=== PATIENT | female | born 1935 | race Caucasian/White ===

== ENCOUNTER 2017-10-13 05:20 | Emergency (ER) | payer OTHER ==
--- OUTSIDE RECORDS SUMMARY | 2017-10-13 05:21 | XMS REPORT | Clinical Summary ---
:1935 Author Organization [facility] Address [address] [place] [address] Care Team Providers Name Role Phone None, Given Primary Care Provider Unavailable Allergies Active Allergy Reactions Severity Noted Date Comments Sulfa (Sulfonamide Antibiotics) 10/29/2015 Current Medications Prescription Sig. Disp. Refills Start Date End Date Status clopidogrel (PLAVIX) 75 Take 75 mg by mouth 3 08/24/2015 Active mg tablet once daily. RESTASIS 0.05 % PUT 1 DROP INTO BOTH 3 08/31/2015 Active ophthalmic emulsion EYES TWICE A DAY diltiazem CD (CardIZEM 09/28/2015 Active CD) 180 MG 24 hr capsule clonIDINE (CATAPRES) 0.1 1 TAB EVERY 6 HOURS 0 04/14/2016 Active MG tablet NEEDED FOR SYSTOLIC >175OR [place] >90 isosorbide mononitrate Take 30 mg by mouth 3 05/04/2016 Active (IMDUR) 30 MG 24 hr once daily. tablet potassium chloride Take 20 mEq by mouth 3 05/19/2016 Active (K-DUR) 20 MEQ CR tablet once daily. pravastatin (PRAVACHOL) Take 20 mg by mouth 3 05/19/2016 Active 20 MG tablet nightly. Active Problems Not on file Social History Tobacco Use Types Packs/Day Years Used Date Never Assessed Sex Assigned at Date Recorded Not on file Last Filed Vital Signs Not on file Plan of Treatment Health Maintenance Due Date Last Done Comments SHINGRIX VACCINE (#1) 1984 ZOSTER VACCINE 1994 PNEUMOCOCCAL POLYSACCHARIDE VACCINE AGE 65 AND OVER 1999 PNEUMOCOCCAL-13 1999 INFLUENZA VACCINE 11/29/2017 Results Not on fileafter 10/12/2016 Insurance Payer Benefit Plan / Group Subscriber ID Type Phone Address MEDICARE MEDICARE PART A AND B xxxxxxxxxx Medicare [place], [place] AETNA AETNA HMO,POS,EPO, MC/EC xxxxxxxxx HMO y [phone] [place] [address]
--- NOTE | 2017-10-13 07:38 | EDPHYS ---
Physician Documentation [facility] Name: Leeann Cueva Age: 82 yrs Sex: Female : 1935 Arrival Date: 10/13/2017 Time: 05:21 Bed 19 Private MD: Kavon Melton ED Physician Guero Castro HPI: 10/13 06:17 This 82 yrs old Female presents to ER via Ambulatory with complaints of inez Foreign Body In Ear. 06:17 The patient presents with a foreign body sensation, pain. The complaints affect the inez left ear. Onset: The symptoms/episode began/occurred just prior to arrival. Modifying factors: The symptoms are alleviated by nothing, the symptoms are aggravated by pulling on ears, touching. Associated signs and symptoms: The patient has no apparent associated signs or symptoms. Severity of symptoms: At their worst the symptoms were moderate in the emergency department the symptoms have improved mildly. The patient has not experienced similar symptoms in the past. Historical: - Allergies: 05:45 Sulfa (Sulfonamide Antibiotics); ea - Home Meds: 05:45 diltiazem HCl 180 mg Oral cpER 1 cap once daily [Active]; CoQ-10 100 mg oral cap daily ea [Active]; clopidogrel 75 mg oral tab 1 tab once daily [Active]; torsemide 20 mg oral tab 1 tab once daily [Active]; potassium chloride 10 mEq Oral TbER 1 tab once daily [Active]; losartan 50 mg oral tab 1 tab once daily [Active]; pravastatin 20 mg oral tab 1 tab once daily [Active]; aspirin 81 mg Oral TbEC 1 tab once daily [Active]; Restasis 0.05 % ophthalmic dpet 1 drop 2 times per day [Active]; Nitrostat 0.4 mg SL subl 1 tab [Active]; - PMHx: 05:45 endometrium cancer; angle closure glaucoma; melanoma; ea - PSHx: 05:45 Tonsillectomy; surgery on left leg; surgery on left knee; heart stent placement; ea - Immunization history:: Adult Immunizations up to date. - Social history:: Smoking status: Patient/guardian denies using tobacco. - Ebola Screening: : Patient negative for fever greater than or equal to 101.5 degrees Fahrenheit, and additional compatible Ebola Virus Disease symptoms. ROS: 06:18 Constitutional: Negative for fever, chills, and weight loss, Eyes: Negative for injury, inez pain, redness, and discharge, Neck: Negative for injury, pain, and swelling, Cardiovascular: Negative for chest pain, palpitations, and edema, Respiratory: Negative for shortness of breath, cough, wheezing, and pleuritic chest pain, Abdomen/GI: Negative for abdominal pain, nausea, vomiting, diarrhea, and constipation, Back: Negative for injury and pain, : Negative for injury, bleeding, discharge, and swelling, MS/Extremity: Negative for injury and deformity, Skin: Negative for injury, rash, and discoloration, Neuro: Negative for headache, weakness, numbness, tingling, and seizure, Psych: Negative for depression, anxiety, suicide ideation, homicidal ideation, and hallucinations, Allergy/Immunology: Negative for hives, rash, and allergies, Endocrine: Negative for neck swelling, polydipsia, polyuria, polyphagia, and marked weight changes, Hematologic/Lymphatic: Negative for swollen nodes, abnormal bleeding, and unusual bruising. 06:18 ENT: Positive for of the left ear. Exam: 06:18 Constitutional: This is a well developed, well nourished patient who is awake, alert, inez and in no acute distress. Head/Face: Normocephalic, atraumatic. Eyes: Pupils equal round and reactive to light, extra-ocular motions intact. Lids and lashes normal. Conjunctiva and sclera are non-icteric and not injected. Cornea within normal limits. Periorbital areas with no swelling, redness, or edema. Neck: Trachea midline, no thyromegaly or masses palpated, and no cervical lymphadenopathy. Supple, full range of motion without nuchal rigidity, or vertebral point tenderness. No Meningismus. Chest/axilla: Normal chest wall appearance and motion. Nontender with no deformity. No lesions are appreciated. Cardiovascular: Regular rate and rhythm with a normal S1 and S2. No gallops, murmurs, or rubs. Normal PMI, no JVD. No pulse deficits. Respiratory: Lungs have equal breath sounds bilaterally, clear to auscultation and percussion. No rales, rhonchi or wheezes noted. No increased work of breathing, no retractions or nasal flaring. Abdomen/GI: Soft, non-tender, with normal bowel sounds. No distension or tympany. No guarding or rebound. No evidence of tenderness throughout. Back: No spinal tenderness. No costovertebral tenderness. Full range of motion. Female : Normal external genitalia. Skin: Warm, dry with normal turgor. Normal color with no rashes, no lesions, and no evidence of cellulitis. MS/ Extremity: Pulses equal, no cyanosis. Neurovascular intact. Full, normal range of motion. Neuro: Awake and alert, GCS 15, oriented to person, place, time, and situation. Cranial nerves II-XII grossly intact. Motor strength 5/5 in all extremities. Sensory grossly intact. Cerebellar exam normal. Normal gait. Psych: Awake, alert, with orientation to person, place and time. Behavior, mood, and affect are within normal limits. 06:18 ENT: Ear canal(s): cerumen impaction, erythema, that is minimal, of the left canal, TM's: erythema. Vital Signs: 05:33 BP 160 / 71; Pulse 51; Resp 16 S; Temp 97.8(TE); Pulse Ox 98% on R/A; Weight 52.16 kg jd3 (R); Height 5 ft. 4 in. (162.56 cm) (R); Pain 0/10; 06:30 BP 165 / 71; Pulse 50; Resp 18; Pulse Ox 98% on R/A; ea 07:25 BP 163 / 75; Pulse 60; Resp 18; Pulse Ox 100% on R/A; ea 05:33 Body Mass Index 19.74 (52.16 kg, 162.56 cm) jd3 MDM: 05:50 Patient medically screened. [facility] 07:34 Data reviewed: vital signs, nurses notes. inez Administered Medications: 08:00 Drug: Augmentin 875 mg Route: PO; em 08:16 Follow up: Response: No adverse reaction em 08:00 Drug: [place] 5 mg-325 mg 1 tabs Route: PO; em 08:16 Follow up: Response: No adverse reaction em Disposition: 10/13/17 07:37 Discharged to Home. Impression: Impacted cerumen, left ear, Otitis externa, Otitis media, unspecified, left ear - hemorrhagic. - Condition is Stable. - Discharge Instructions: Cerumen Impaction, Ear Drops, Adult, Otitis Media, Adult, Otitis Media, Child, Otitis Externa, [id number], Otitis Media, Adult, [id number]. - Prescriptions for Augmentin 875- 125 mg Oral Tablet - take 1 tablet by ORAL route every 12 hours for 7 days; 14 tablet. Cortisporin- TC 3.3-3-10-0.5 mg/mL Otic Suspension - instill 4 drop by OTIC route every 6 hours; 1 bottle. Tylenol- Codeine #3 300-30 mg Oral Tablet - take 2 tablets by ORAL route every 6 hours As needed; 24 tablet. - Medication Reconciliation Form, Thank You Letter, Antibiotic Education, Prescription Opioid Use form. - Follow up: Kavon Melton; When: 2 - 3 days; Reason: Recheck today's complaints, Continuance of care, Re-evaluation by your physician. Follow up: Dahiana Vargas; When: Today; Reason: Recheck today's complaints, Continuance of care, Re-evaluation by your physician. - Problem is new. - Symptoms have improved. Signatures: Guero Castro MD MD cha Munoz, Edgar, RESIN REMOVER RESIN REMOVER em Steph Dominguez RN RN ea Davies, Jonathon, RN RN jd3 Corrections: (The following items were deleted from the chart) 08:20 07:37 10/13/2017 07:37 Discharged to Home. Impression: Impacted cerumen, left ear; em Otitis externa; Otitis media, unspecified, left ear - hemorrhagic. Condition is Stable. Discharge Instructions: Cerumen Impaction, Ear Drops, Adult, Otitis Media, Adult, Otitis Media, Child, Otitis Externa, [id number], Otitis Media, Adult, [id number]. Prescriptions for Augmentin 875-125 mg Oral Tablet - take 1 tablet by ORAL route every 12 hours for 7 days; 14 tablet, Cortisporin-TC 3.3-3-10-0.5 mg/mL Otic Suspension - instill 4 drop by OTIC route every 6 hours; 1 bottle, Tylenol-Codeine #3 300-30 mg Oral Tablet - take 2 tablets by ORAL route every 6 hours As needed; 24 tablet. and Forms are Medication Reconciliation Form, Thank You Letter, Antibiotic Education, Prescription Opioid Use. Follow up: Kavon Melton; When: 2 - 3 days; Reason: Recheck today's complaints, Continuance of care, Re-evaluation by your physician. Follow up: Dahiana Vargas; When: Today; Reason: Recheck today's complaints, Continuance of care, Re-evaluation by your physician. Problem is new. Symptoms have improved. inez
--- NOTE | 2017-10-13 07:38 | ER ---
Nurse's Notes [facility] Name: Leeann Cueva Age: 82 yrs Sex: Female : 1935 Arrival Date: 10/13/2017 Time: 05:21 Bed 19 Private MD: Kavon Melton Diagnosis: Impacted cerumen, left ear;Otitis externa;Otitis media, unspecified, left ear-hemorrhagic Presentation: 10/13 05:31 Presenting complaint: Patient states: "I woke up and I think something has crawled into jd3 my right ear. it would hurt with the worst pain ever then stop, then hurt and stop. I tried putting in some ear drops I have, but still didn't help.". Transition of care: patient was not received from another setting of care. Onset of symptoms was October 13, 2017. Risk Assessment: Do you want to hurt yourself or someone else? Patient reports no desire to harm self or others. Initial Sepsis Screen: Does the patient meet any 2 criteria? No. Patient's initial sepsis screen is negative. Does the patient have a suspected source of infection? No. Patient's initial sepsis screen is negative. Care prior to arrival: None. 05:31 Method Of Arrival: Ambulatory jd3 05:31 Acuity: AALIYAH 5 jd3 Historical: - Allergies: 05:45 Sulfa (Sulfonamide Antibiotics); ea - Home Meds: 05:45 diltiazem HCl 180 mg Oral cpER 1 cap once daily [Active]; CoQ-10 100 mg oral cap daily ea [Active]; clopidogrel 75 mg oral tab 1 tab once daily [Active]; torsemide 20 mg oral tab 1 tab once daily [Active]; potassium chloride 10 mEq Oral TbER 1 tab once daily [Active]; losartan 50 mg oral tab 1 tab once daily [Active]; pravastatin 20 mg oral tab 1 tab once daily [Active]; aspirin 81 mg Oral TbEC 1 tab once daily [Active]; Restasis 0.05 % ophthalmic dpet 1 drop 2 times per day [Active]; Nitrostat 0.4 mg SL subl 1 tab [Active]; - PMHx: 05:45 endometrium cancer; angle closure glaucoma; melanoma; ea - PSHx: 05:45 Tonsillectomy; surgery on left leg; surgery on left knee; heart stent placement; ea - Immunization history:: Adult Immunizations up to date. - Social history:: Smoking status: Patient/guardian denies using tobacco. - Ebola Screening: : Patient negative for fever greater than or equal to 101.5 degrees Fahrenheit, and additional compatible Ebola Virus Disease symptoms. Screenin:35 Abuse screen: Denies threats or abuse. Nutritional screening: No deficits noted. jd3 Tuberculosis screening: No symptoms or risk factors identified. Fall Risk Ambulatory Aid- None/Bed Rest/Nurse Assist (0 pts). Gait- Normal/Bed Rest/Wheelchair (0 pts) Mental Status- Oriented to own ability (0 pts). Total Mcadams Fall Scale indicates No Risk (0-24 pts). Assessment: 05:29 General: Appears in no apparent distress. Behavior is cooperative, appropriate for age, jd3 anxious. Pain: Denies pain. Pain at worst was 10 out of 10 on a pain scale. Neuro: Level of Consciousness is awake, alert, obeys commands, Oriented to person, place, time, situation, Appropriate for age. Cardiovascular: Capillary refill < 3 seconds Patient's skin is warm and dry. Respiratory: Airway is patent Respiratory effort is even, unlabored, Respiratory pattern is regular, symmetrical. GI: No signs and/or symptoms were reported involving the gastrointestinal system. : No signs and/or symptoms were reported regarding the genitourinary system. EENT: Ear canal ear wax noted to ronak ears. Derm: Skin is intact, Skin is dry, Skin is normal, Skin temperature is warm. Musculoskeletal: Circulation, motion, and sensation intact. Range of motion: intact in all extremities. 06:30 Reassessment: Patient and/or family updated on plan of care and expected duration. Pain ea level reassessed. Patient is alert, oriented x 3, equal unlabored respirations, skin warm/dry/pink. 07:15 Reassessment: Patient appears in no apparent distress at this time. Patient and/or em family updated on plan of care and expected duration. Pain level reassessed. Patient is alert, oriented x 3, equal unlabored respirations, skin warm/dry/pink. Patient states symptoms have improved. 08:27 Reassessment: Left VM with patient stating that ED staff will call Dr. sahu's office ss to sent up an appointment to follow up today in office. Vital Signs: 05:33 BP 160 / 71; Pulse 51; Resp 16 S; Temp 97.8(TE); Pulse Ox 98% on R/A; Weight 52.16 kg jd3 (R); Height 5 ft. 4 in. (162.56 cm) (R); Pain 0/10; 06:30 BP 165 / 71; Pulse 50; Resp 18; Pulse Ox 98% on R/A; ea 07:25 BP 163 / 75; Pulse 60; Resp 18; Pulse Ox 100% on R/A; ea 05:33 Body Mass Index 19.74 (52.16 kg, 162.56 cm) jd3 ED Course: 05:21 Patient arrived in ED. am2 05:21 Kavon Melton MD is Private Physician. am2 05:29 Jim Cleveland, MARSHA is Primary Nurse. jd3 05:33 Triage completed. jd3 05:35 Arm band placed on. jd3 05:35 Patient has correct armband on for positive identification. Bed in low position. Call jd3 light in reach. Side rails up X 1. Adult w/ patient. 05:49 Guero Castro MD is Attending Physician. inez 06:40 Ear irrigation: Route left ear with Other 1/2 peroxide and H2O amount 250ml Patient ea tolerated well. 06:58 Raymond Young LVN is Primary Nurse. em 07:37 Kavon Melton MD is Referral Physician. inez 07:37 Dahiana Sahu MD is Referral Physician. inez 08:[address] Castro, minimal debris, tolerated well. Patient did not have IV em access during this emergency room visit. Administered Medications: 08:00 Drug: Augmentin 875 mg Route: PO; em 08:16 Follow up: Response: No adverse reaction em 08:00 Drug: [place] 5 mg-325 mg 1 tabs Route: PO; em 08:16 Follow up: Response: No adverse reaction em Outcome: 07:37 Discharge ordered by . inez 08:19 Discharged to home ambulatory. em 08:19 Condition: good 08:19 Discharge instructions given to patient, family, Instructed on discharge instructions, follow up and referral plans. medication usage, Demonstrated understanding of instructions, follow-up care, medications, Prescriptions given X 3. 08:20 Patient left the ED. em Signatures: Guero Castro MD MD cha Munoz, Edgar, EARLY CHILDHOOD ASSISTANT EARLY CHILDHOOD ASSISTANT Edith Elmore, RN RN ss Rosaline Vargas Elena, RN RN Jim Dowling RN RN jd3
[2017-10-13] MEDS ORDERED: HYDROCODONE/APAP 5/325 MG TAB ONE (07:59)
[2017-10-13] MEDS ORDERED: AMOX/K CLAV 875 MG TAB ONE (07:59)
== END 2017-10-13 08:20 | disposition home or self-care (01) ==
LOC: ER 05:20
DX: H61.22 Impacted cerumen, left ear (principal); H60.92 Unspecified otitis externa, left ear; H66.92 Otitis media, unspecified, left ear; H92.22 Otorrhagia, left ear; C54.1 Malignant neoplasm of endometrium; C43.9 Malignant melanoma of skin, unspecified; Z88.2 Allergy status to sulfonamides
CPT/HCPCS: 99283

== ENCOUNTER 2019-06-04 11:48 | Emergency (ER) | payer OTHER ==
--- NOTE | 2019-06-04 13:11 | RAD REPORT ---
EXAM DESCRIPTION: RAD - Chest Pa And Lat (2 Views) - 06/04/2019 1:02 pm CLINICAL HISTORY: RIB PAIN - LEFT Chest pain. 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 The heart is upper limit normal in size with a tortuous thoracic aor ta. Diffuse osteopenia is seen with no displaced rib fracture evident.
[2019-06-04 13:29] LABS: Absolute Lymphocytes (CBC) 1.9 K/uL (0.7-4.9); Basophils % 0.9 % (0-1.3); Hematocrit 36.9 % (36.0-45.0); Lymphocytes % 31.5 % (15.3-44.8); MPV 8.4 fL (7.6-11.3); RBC Red Blood Cell Count 3.99 M/uL (3.86-4.86)
[2019-06-04 13:49] LABS: ALT/SGPT 13 U/L (12-78); AST/SGOT 18 U/L (15-37); Alkaline Phosphatase 92 U/L (45-117); BUN Blood Urea Nitrogen 18 mg/dL (7-18); Bicarbonate 28 mmol/L (21-32); Bilirubin Direct 0.2 mg/dL (0-0.2); Bilirubin Total 0.5 mg/dL (0.2-1.0); Glucose Level 86 mg/dL (74-106); Lipase 105 U/L (73-393); Potassium 4.3 mmol/L (3.5-5.1); Protein, Total 6.6 g/dL (6.4-8.2); Sodium Level 143 mmol/L (136-145); Troponin I < 0.02 ng/mL (0.0-0.045)
[2019-06-04] MEDS ORDERED: TRAMADOL HCL 50 MG TAB ONE (14:08)
[2019-06-04 14:59] LABS: Urine Bacteria <20 /HPF (<20); Urine Culture Reflex Order NOT NEEDED; Urine RBC <5 /HPF (NONE SEEN)
--- NOTE | 2019-06-04 15:08 | EDPHYS ---
Physician Documentation [facility] Name: Leeann Cueva Age: 84 yrs Sex: Female : 1935 Arrival Date: 06/04/2019 Time: 11:50 Bed 23 Private MD: Kavon Melton ED Physician Tadeo Wiley HPI: 06/04 12:55 This 84 yrs old Female presents to ER via Ambulatory with complaints of Rib cp Pain. 12:55 Onset: The symptoms/episode began/occurred yesterday, pain returned today. cp 12:55 Associated signs and symptoms: Pertinent negatives: abdominal pain, congestion, cough, cp fever, vomiting. Modifying factors: the patient symptoms are aggravated by palpation. Patient reports a fall 1 week ago. No immediate pain to rib area after fall. Historical: - Allergies: 12:04 Sulfa (Sulfonamide Antibiotics); ca1 - PMHx: 12:04 angle closure glaucoma; endometrium cancer; melanoma; Hypertension; CAD; ca1 - PSHx: 12:04 Tonsillectomy; surgery on left leg; surgery on left knee; heart stent placement; ca1 12:07 Cholecystectomy; pericardial Window; ca1 - Immunization history:: Adult Immunizations up to date, Pneumococcal vaccine is up to date, Flu vaccine is up to date. - Coronavirus screen:: The patient has NOT traveled to [place], [place], or [place] in the past 14 days. The patient has NOT had contact with known/suspected case of Coronavirus?. - Social history:: Smoking status: Patient denies any tobacco usage or history of. - Ebola Screening: : Patient negative for fever greater than or equal to 101.5 degrees Fahrenheit, and additional compatible Ebola Virus Disease symptoms Patient denies exposure to infectious person Patient denies travel to an Ebola-affected area in the 21 days before illness onset No symptoms or risks identified at this time. ROS: 13:05 Constitutional: Negative for body aches, chills, fever, poor PO intake. cp 13:05 Eyes: Negative for injury, pain, redness, and discharge. cp 13:05 ENT: Negative for drainage from ear(s), ear pain, sore throat, difficulty swallowing, difficulty handling secretions. 13:05 Neck: Negative for pain with movement, pain at rest, stiffness. 13:05 Cardiovascular: Positive for chest pain, of the left lower anterior and lateral rib area, Negative for edema, palpitations. 13:05 Respiratory: Negative for cough, shortness of breath, wheezing. 13:05 Abdomen/GI: Negative for abdominal pain, nausea, vomiting, and diarrhea, black/tarry stool, rectal bleeding. 13:05 Back: Negative for pain at rest, pain with movement. 13:05 Skin: Negative for rash. 13:05 Neuro: Negative for altered mental status, headache, weakness. 13:05 All other systems are negative. Exam: 13:30 Constitutional: The patient appears in no acute distress, alert, awake, cp non-diaphoretic, non-toxic, well developed, frail. 13:30 Head/Face: Normocephalic, atraumatic. cp 13:30 Eyes: Periorbital structures: appear normal, Conjunctiva: normal, no exudate, no injection, Sclera: no appreciated abnormality, Lids and lashes: appear normal, bilaterally. 13:30 ENT: External ear(s): are unremarkable, Nose: is normal, Mouth: Lips: moist, Oral mucosa: pink and intact, moist, Posterior pharynx: is normal, airway is patent, no erythema, no exudate. 13:30 Neck: C-spine: vertebral tenderness, is not appreciated, crepitus, is not appreciated, ROM/movement: is normal, is supple, no nuchal rigidity. 13:30 Chest/axilla: Inspection: normal, Palpation: crepitus, is not appreciated, tenderness, that is moderate, of the left lower lateral and anterior rib area, that partially reproduces the patient's complaints. 13:30 Cardiovascular: Rate: bradycardic, Rhythm: regular, Edema: is not appreciated, JVD: is not appreciated. 13:30 Respiratory: the patient does not display signs of respiratory distress, Respirations: normal, no use of accessory muscles, no retractions, no splinting, no tachypnea, labored breathing, is not present, Breath sounds: are clear throughout, no decreased breath sounds, no stridor, no wheezing. 13:30 Abdomen/GI: Inspection: abdomen appears normal, Bowel sounds: active, all quadrants, Palpation: soft, in all quadrants, nontender, in all quadrants, voluntary guarding, is not appreciated, involuntary guarding, is not appreciated. 13:30 Back: pain, is absent, ROM is normal. 13:30 Skin: no rash present. 13:30 Neuro: Orientation: to person, place \T\ time. Mentation: is normal. 14:36 ECG was reviewed by the Attending Physician. cp Vital Signs: 12:04 BP 129 / 59; Pulse 55; Resp 17 S; Temp 97.5(O); Pulse Ox 100% on R/A; Weight 48.53 kg ca1 (R); Height 5 ft. 4 in. (162.56 cm); Pain 6/10; 13:00 BP 153 / 82; Pulse 55; Resp 16; Pulse Ox 100% on R/A; vc 14:30 BP 162 / 72; Pulse 51; Resp 16; Pulse Ox 100% on R/A; vc 15:04 BP 133 / 78; Pulse 76; Resp 16; Pulse Ox 100% on R/A; vc 12:04 Body Mass Index 18.37 (48.53 kg, 162.56 cm) ca1 MDM: 12:39 Patient medically screened. cp 13:30 Differential diagnosis: rib fracture, rib contusion, acute [place]. cp 15:06 Data reviewed: vital signs, nurses notes, lab test result(s), EKG, radiologic studies, cp plain films, and as a result, I will discharge patient. 15:06 Test interpretation: by ED physician or midlevel provider: ECG, plain radiologic cp studies. Counseling: I had a detailed discussion with the patient and/or guardian regarding: the historical points, exam findings, and any diagnostic results supporting the discharge/admit diagnosis, lab results, radiology results, the need for outpatient follow up, a family practitioner, to return to the emergency department if symptoms worsen or persist or if there are any questions or concerns that arise at home. Response to treatment: the patient's symptoms have markedly improved after treatment, and as a result, I will discharge patient. 06/04 12:51 Order name: Urine Microscopic Only; Complete Time: 15:03 cp 06/04 12:51 Order name: CBC with Diff; Complete Time: 13:55 cp 06/04 12:51 Order name: Troponin I; Complete Time: 13:55 cp 06/04 12:51 Order name: BMP; Complete Time: 13:55 cp 06/04 13:56 Interpretation: Normal except: CL 109; GFR 48. cp 06/04 12:51 Order name: LFT's; Complete Time: 13:55 cp 06/04 14:35 Interpretation: Normal except: ALB 3.0; GLOB 3.6; A/G 0.8. cp 06/04 12:51 Order name: Lipase; Complete Time: 13:55 cp 06/04 12:06 Order name: Chest Pa And Lat (2 Views) XRAY; Complete Time: 13:55 ca1 06/04 14:36 Interpretation: Report reviewed. cp 06/04 12:06 Order name: EKG - Nurse/Tech; Complete Time: 12:12 ca1 06/04 12:06 Order name: EKG; Complete Time: 12:06 ca1 06/04 12:51 Order name: Urine Dipstick-Ancillary (obtain specimen); Complete Time: 14:38 cp 06/04 15:05 Order name: Urine Dipstick--Ancillary (enter results) bd EC:36 Rate is 54 beats/min. Rhythm is regular. AL interval is normal. QRS interval is normal. cp QT interval is normal. Clinical impression: Sinus bradycardia. Interpreted by me. Reviewed by me. Administered Medications: 14:20 Drug: UltRAM 50 mg Route: PO; vc 14:38 Follow up: Response: No adverse reaction vc Disposition: 16:40 Co-signature as Attending Physician, Tadeo Wiley MD. rn Disposition: 06/04/19 15:07 Discharged to Home. Impression: Other chest pain - left lower lateral rib pain. - Condition is Stable. - Discharge Instructions: Rib Contusion, Chest Wall Pain. - Prescriptions for Ibuprofen 800 mg Oral Tablet - take 1 tablet by ORAL route every 8 hours As needed take with food; 30 tablet. Tramadol 50 mg Oral Tablet - take 1 tablet by ORAL route every 8 hours as needed; 12 tablet. - Medication Reconciliation Form, Thank You Letter, Antibiotic Education, Prescription Opioid Use form. - Follow up: Private Physician; When: 2 - 3 days; Reason: Recheck today's complaints. - Problem is new. - Symptoms have improved. Signatures: Dispatcher [employer] EDMS Tadeo Wiley MD MD rn Guero Luis PA PA cp Acob, Cheryl RN RN ca1 Carlita Richardson RN RN vc Corrections: (The following items were deleted from the chart) 15:26 15:07 06/04/2019 15:07 Discharged to Home. Impression: Other chest pain - left lower vc lateral rib pain. Condition is Stable. Forms are Medication Reconciliation Form, Thank You Letter, Antibiotic Education, Prescription Opioid Use. Follow up: Private Physician; When: 2 - 3 days; Reason: Recheck today's complaints. Problem is new. Symptoms have improved. cp
--- NOTE | 2019-06-04 15:08 | ER ---
Nurse's Notes [facility] Name: Leeann Cueva Age: 84 yrs Sex: Female : 1935 Arrival Date: 06/04/2019 Time: 11:50 Bed 23 Private MD: Kavon Melton Diagnosis: Other chest pain-left lower lateral rib pain Presentation: 06/04 11:59 Presenting complaint: Patient states: Yesterday morning I got pain on the L rib side. ca1 Took some Tylenol and got through the day. Today, it's hurting again. I did have a fall a week ago and landed on this side. I didn't have any pain at that time until yesterday. Denies fever, cough and congestion. Transition of care: patient was not received from another setting of care. Onset of symptoms was June 04, 2019. Risk Assessment: Do you want to hurt yourself or someone else? Patient reports no desire to harm self or others. Initial Sepsis Screen: Does the patient meet any 2 criteria? No. Patient's initial sepsis screen is negative. Does the patient have a suspected source of infection? No. Patient's initial sepsis screen is negative. Care prior to arrival: None. 11:59 Method Of Arrival: Ambulatory ca1 11:59 Acuity: AALIYAH 3 ca1 Historical: - Allergies: 12:04 Sulfa (Sulfonamide Antibiotics); ca1 - PMHx: 12:04 angle closure glaucoma; endometrium cancer; melanoma; Hypertension; CAD; ca1 - PSHx: 12:04 Tonsillectomy; surgery on left leg; surgery on left knee; heart stent placement; ca1 12:07 Cholecystectomy; pericardial Window; ca1 - Immunization history:: Adult Immunizations up to date, Pneumococcal vaccine is up to date, Flu vaccine is up to date. - Coronavirus screen:: The patient has NOT traveled to [place], [place], or [place] in the past 14 days. The patient has NOT had contact with known/suspected case of Coronavirus?. - Social history:: Smoking status: Patient denies any tobacco usage or history of. - Ebola Screening: : Patient negative for fever greater than or equal to 101.5 degrees Fahrenheit, and additional compatible Ebola Virus Disease symptoms Patient denies exposure to infectious person Patient denies travel to an Ebola-affected area in the 21 days before illness onset No symptoms or risks identified at this time. Screenin:30 Abuse screen: Denies threats or abuse. Nutritional screening: No deficits noted. vc Tuberculosis screening: No symptoms or risk factors identified. Fall Risk None identified. Assessment: 13:00 General: Appears in no apparent distress. uncomfortable, slender, well groomed, vc Behavior is calm, cooperative, appropriate for age. Pain: Complains of pain in left lower anterior and lateral rib cage. Neuro: Level of Consciousness is awake, alert, obeys commands, Oriented to person, place, time, Satellite Dish Repairer are. Cardiovascular: Capillary refill < 3 seconds Patient's skin is warm and dry. Respiratory: Airway is patent Respiratory effort is even, unlabored. GI: No signs and/or symptoms were reported involving the gastrointestinal system. : No signs and/or symptoms were reported regarding the genitourinary system. EENT: No deficits noted. Derm: Skin temperature is cool. Musculoskeletal: Range of motion: intact in all extremities. 14:00 Reassessment: Patient and/or family updated on plan of care and expected duration. Pain vc level reassessed. Patient is alert, oriented x 3, equal unlabored respirations, skin warm/dry/pink. Patients at bedside. 15:13 Reassessment: Patient and/or family updated on plan of care and expected duration. Pain vc level reassessed. Patient is alert, oriented x 3, equal unlabored respirations, skin warm/dry/pink. Patient states feeling better. Patient states symptoms have improved. Vital Signs: 12:04 BP 129 / 59; Pulse 55; Resp 17 S; Temp 97.5(O); Pulse Ox 100% on R/A; Weight 48.53 kg ca1 (R); Height 5 ft. 4 in. (162.56 cm); Pain 6/10; 13:00 BP 153 / 82; Pulse 55; Resp 16; Pulse Ox 100% on R/A; vc 14:30 BP 162 / 72; Pulse 51; Resp 16; Pulse Ox 100% on R/A; vc 15:04 BP 133 / 78; Pulse 76; Resp 16; Pulse Ox 100% on R/A; vc 12:04 Body Mass Index 18.37 (48.53 kg, 162.56 cm) ca1 ED Course: 11:50 Patient arrived in ED. as 11:50 Kavon Melton MD is Private Physician. as 12:02 Triage completed. ca1 12:04 Arm band placed on right wrist. ca1 12:36 Guero Luis PA is PHCP. cp 12:36 Tadeo Wiley MD is Attending Physician. cp 12:54 Carlita Richardson, RN is Primary Nurse. vc 12:58 EKG done, by ED staff, reviewed by Guero GIBBS. at1 13:02 Chest Pa And Lat (2 Views) XRAY In Process Unspecified. EDMS 13:05 Safety checks: Family/friend present: yes. Family/friends encouraged to stay with jp3 patient. 13:10 Missed attempt(s): 22 gauge in right antecubital area. Bleeding controlled, band aid jp3 applied, catheter tip intact. 13:15 Inserted saline lock: 22 gauge in left antecubital area, using aseptic technique. Blood jp3 collected. 13:15 Initial lab(s) drawn, by me, sent to lab. X-ray(s) taken. jp3 13:36 Placed in gown. Bed in low position. Call light in reach. Side rails up X 1. Side rails jp3 up X2. Warm blanket given. Verbal reassurance given. Pulse ox on. NIBP on. 15:09 Urine Dipstick--Ancillary (enter results) Sent. vc 15:14 No provider procedures requiring assistance completed. IV discontinued, intact, vc bleeding controlled, No redness/swelling at site. Pressure dressing applied. Administered Medications: 14:20 Drug: UltRAM 50 mg Route: PO; vc 14:38 Follow up: Response: No adverse reaction vc Outcome: 15:07 Discharge ordered by MD. cp 15:14 Condition: improved vc 15:17 Discharge instructions given to patient, significant other, Instructed on discharge vc instructions, follow up and referral plans. medication usage, Demonstrated understanding of instructions, follow-up care, medications, Prescriptions given X 2. 15:26 Discharged to home ambulatory, with significant other. vc 15:26 Patient left the ED. vc Signatures: Dispatcher [employer] Onelia Price Amanda, fuel storage technician EKG Tat1 Guero Luis PA PA cp Cheikh Fagan jp3 Ivonne Galicia RN RN ca1 Carlita Richardson RN RN vc
[2019-06-04 15:34] VITALS: TEMP 97.5; O2SAT 100
[2019-06-04 15:38] VITALS: BP 133/78
--- NOTE | 2019-06-04 16:13 | EKG ---
Test Date: 2019-06-04 Test Time: 12:10:36 Lead Systems Analyst: AZUL MEASUREMENT RESULTS: Intervals: Rate: 54 ID: [id number] QRSD: 80 QT: 378 QTc: 358 [place]: P: 68 ID: [id number] QRS: 76 T: 65 INTERPRETIVE STATEMENTS: Sinus bradycardia Otherwise normal ECG Compared to ECG 01/24/1997 11:57:00 Myocardial infarct finding no longer present Electronically Signed On 06-04-19 16:11:52 SALVAGE DIVER by Siddharth Phan
[2019-06-04 17:13] LABS: Urine Blood NEGATIVE (NEG); Urine Glucose NEGATIVE (NEG); Urine Protein NEGATIVE (NEG); Urine pH 5.5 (5.0-7.0)
== END 2019-06-04 15:26 | disposition home or self-care (01) ==
LOC: ER 11:48
DX: R07.81 Pleurodynia (principal); I10 Essential (primary) hypertension; Z95.9 Presence of cardiac and vascular implant and graft, unspecified; Z88.2 Allergy status to sulfonamides; Z85.89 Personal history of malignant neoplasm of other organs and systems
CPT/HCPCS: 36415; 71046; 80048; 80076; 81003; 81015; 83690; 84484; 85025; 93005; 99284

== ENCOUNTER 2020-10-25 22:20 | Emergency (ER) | payer OTHER ==
--- OUTSIDE RECORDS SUMMARY | 2020-10-25 22:34 | XMS REPORT | Continuity of Care Document ---
:1935 Author Organization [facility] t Address [address] [place] [address] Care Team Providers Name Role Phone CATRACHITO Primary Care Physician Unavailable CATRACHITO Attending Clinician Unavailable Payers Payer Name Policy Type Policy Effective Date Expiration Date Sour ce Number AETNA MEDICAREAETNA [id number] 2019 [place] MEDICARE HMO/PPO 00:00:00 Methodis t [id number] -PresentHMO AETNA MEDICARE PPO [id number] 2019 00:00:00 Problems This patient has no known problems. Allergies, Adverse Reactions, Alerts Allergy Allergy Status Severity Reaction(s) Onset Inactive Treating Comm ents Source Name Type Date Date Clinician Sulfa Propensi Active [place] (Sulfona ty to 6-30 Methodi mide adverse 00:00: st Antibiot reaction 00 ics) s to drug Social History Social Habit Start Date Stop Date Quantity Comments Source Sex Assigned At [birth year] [place] M ethodist 00:00:00 00:00:00 Medications Ordered Filled Start Stop Current Ordering Indication Dosage Frequency Signature Comments Components Source Medication Medication Date Date Medication? Clinician (SIG) Name Name potassium Yes 20meq QD Take 20 [place] chloride 1-19 mEq by Methodandra (K-DUR) 20 00:00: mouth once s t MEQ CR 00 daily. tablet pravastatin Yes 20mg QD Take 20 mg Rasheed (PRAVACHOL) 1-19 by mouth Meth allyssa 20 MG 00:00: nightly. st tablet 00 isosorbide Yes 30mg QD Take 30 mg [place] mononitrate 1-04 by mouth Meth allyssa (IMDUR) 30 00:00: once st MG 24 hr 00 daily. tablet clonIDINE 2015-05 Yes 1 TAB Wili (CATAPRES) 2-15 EVERY 6 Method i 0.1 MG 00:00: HOURS st tablet 00 NEEDED FOR SYSTOLIC >175OR [place]ENN >90 diltiazem Yes Wili CD 5-30 Methodi (CardIZEM 00:00: st CD) 180 MG 00 24 hr capsule RESTASIS Yes PUT 1 DROP Blanca ston 0.05 % 02 INTO BOTH Methodi ophthalmic 00:00: EYES TWICE s t emulsion 00 A DAY clopidogrel Yes 75mg QD Take 75 mg Wili (PLAVIX) 75 4-25 by mouth Meth allyssa mg tablet 00:00: once st 00 daily. Immunizations Ordered Immunization Filled Immunization Date Status Commen ts [facility] 2020-[facility]08 Com[facility] [place] [facility] 00:00:00 [facility] [place] COVID-19 MRNA 2020-05-18 Completed [place] VACCINATION 00:00:00 [facility] Procedures This patient has no known procedures. Plan of Care Planned Activity Planned Date Details Comments Source Future Scheduled 2020-11-29 INFLUENZA VACCINE [facility] 00:00:00 [code = INFLUENZA VACCINE] Future Scheduled 1999 65+ PNEUMOCOCCAL [place] [facility] Test 00:00:00 VACCINE (1 of 1 - PPSV23) [code = 65+ PNEUMOCOCCAL VACCINE (1 of 1 - PPSV23)] Future Scheduled 1984 SHINGLES VACCINES (#1) [facility] Test 00:00:00 [code = SHINGLES VACCINES (#1)] Encounters Start End Encounter Admission Attending Care Care Encounter Source Date/Time Date/Time Type Type Clinicians Facility Department ID 2020-06-08 2020-06-08 Outpatient [facility] [id number] [place] 00:00:00 00:00:[address] 2020-05-18 2020-05-18 Outpatient [facility] [id number] 650 [place] 00:00:00 00:00:[address] 2020-04-01 2020-04-01 Outpatient [facility] WINST[facility] [id number] 10:55:49 12:11:19 JENNIFER duarte 2020-02-05 2020-02-05 Outpatient DENNIS WINSTON [facility] [id number] 00:00:00 00:00:00 JENNIFER duarte 2019-10-23 2019-10-23 Outpatient DENNIS WINSTON [facility] [id number] 13:38:08 13:38:40 JENNIFER duarte Results This patient has no known results.
[2020-10-25] MEDS ORDERED: MORPHINE 2 MG/ML SYR ONE (23:25)
[2020-10-25] MEDS ORDERED: ONDANSETRON 4 MG/2 ML VIAL ONE (23:25)
[2020-10-26] MEDS ORDERED: MORPHINE 2 MG/ML SYR ONE (00:01)
--- NOTE | 2020-10-26 01:24 | EDPHYS ---
Physician Documentation [facility] Name: Leeann Cueva Age: 85 yrs Sex: Female : 1935 Arrival Date: 10/25/2020 Time: 22:21 Bed 7 Private MD: ED Physician Bright Burrows HPI: 10/25 23:19 This 85 yrs old Female presents to ER via EMS with complaints of Fall. mh7 23:19 Details of fall: The patient fell from an upright position, while walking. Onset: The 7 symptoms/episode began/occurred just prior to arrival, today. Associated injuries: The patient sustained left elbow and left shoulder and left arm, decreased range of motion, painful injury. Severity of symptoms: At their worst the symptoms were moderate, earlier today, in the emergency department the symptoms are unchanged, despite EMS interventions. Historical: - Allergies: 22:28 Sulfa (Sulfonamide Antibiotics); 8 - Home Meds: 22:28 aspirin 81 mg Oral TbEC 1 tab once daily [Active]; clopidogrel 75 mg Oral tab 1 tab jm8 once daily [Active]; CoQ-10 100 mg Oral cap daily [Active]; diltiazem HCl 180 mg Oral cpER 1 cap once daily [Active]; losartan 50 mg Oral tab 1 tab once daily [Active]; Nitrostat 0.4 mg SL subl 1 tab [Active]; potassium chloride 10 mEq Oral TbER 1 tab once daily [Active]; pravastatin 20 mg Oral tab 1 tab once daily [Active]; Restasis 0.05 % ophthalmic dpet 1 drop 2 times per day [Active]; torsemide 20 mg Oral tab 1 tab once daily [Active]; - PMHx: 22:28 angle closure glaucoma; CAD; endometrium cancer; Hypertension; melanoma; jm8 - PSHx: 22:28 None; jm8 - Immunization history:: Adult Immunizations up to date. - Social history:: Smoking status: Patient denies any tobacco usage or history of. ROS: 23:19 Constitutional: Negative for fever, chills, and weight loss, Eyes: Negative for injury, mh7 pain, redness, and discharge, ENT: Negative for injury, pain, and discharge, Neck: Negative for injury, pain, and swelling, Cardiovascular: Negative for chest pain, palpitations, and edema, Respiratory: Negative for shortness of breath, cough, wheezing, and pleuritic chest pain, Abdomen/GI: Negative for abdominal pain, nausea, vomiting, diarrhea, and constipation, Back: Negative for injury and pain, : Negative for injury, bleeding, discharge, and swelling, Skin: Negative for injury, rash, and discoloration, Neuro: Negative for headache, weakness, numbness, tingling, and seizure, Psych: Negative for depression, anxiety, suicide ideation, homicidal ideation, and hallucinations, Allergy/Immunology: Negative for hives, rash, and allergies, Endocrine: Negative for neck swelling, polydipsia, polyuria, polyphagia, and marked weight changes, Hematologic/Lymphatic: Negative for swollen nodes, abnormal bleeding, and unusual bruising. Exam: 23:19 Constitutional: This is a well developed, well nourished patient who is awake, alert, mh7 and in no acute distress. Head/Face: Normocephalic, atraumatic. Eyes: Pupils equal round and reactive to light, extra-ocular motions intact. Lids and lashes normal. Conjunctiva and sclera are non-icteric and not injected. Cornea within normal limits. Periorbital areas with no swelling, redness, or edema. Neck: Trachea midline, no thyromegaly or masses palpated, and no cervical lymphadenopathy. Supple, full range of motion without nuchal rigidity, or vertebral point tenderness. No Meningismus. Chest/axilla: Normal chest wall appearance and motion. Nontender with no deformity. No lesions are appreciated. Cardiovascular: Regular rate and rhythm with a normal S1 and S2. No gallops, murmurs, or rubs. Normal PMI, no JVD. No pulse deficits. Respiratory: Lungs have equal breath sounds bilaterally, clear to auscultation and percussion. No rales, rhonchi or wheezes noted. No increased work of breathing, no retractions or nasal flaring. Abdomen/GI: Soft, non-tender, with normal bowel sounds. No distension or tympany. No guarding or rebound. No evidence of tenderness throughout. Back: No spinal tenderness. No costovertebral tenderness. Full range of motion. Skin: Warm, dry with normal turgor. Normal color with no rashes, no lesions, and no evidence of cellulitis. 23:19 Neuro: Awake and alert, GCS 15, oriented to person, place, time, and situation. Cranial nerves II-XII grossly intact. Motor strength 5/5 in all extremities. Sensory grossly intact. Cerebellar exam normal. Normal gait. Psych: Awake, alert, with orientation to person, place and time. Behavior, mood, and affect are within normal limits. 23:19 Musculoskeletal/extremity: Extremities: noted in the left elbow and left shoulder and left arm: decreased ROM, pain, tenderness, ROM: limited active range of motion, in the left elbow and left shoulder and left arm, limited passive range of motion, in the left elbow and left shoulder and left arm, limited active range of motion due to pain, in the left elbow and left shoulder and left arm, limited passive range of motion due to pain, in the left elbow and left shoulder and left arm, Circulation is intact in all extremities. Sensation intact. Compartment Syndrome exam of affected extremity: is normal. no numbness, no tingling, no sensation deficit, no palor, no weak pulses, Joints: the left shoulder and left elbow displays limited range of motion, pain at rest, painful range of motion, tenderness. Vital Signs: 22:24 BP 184 / 75; Pulse 57; Resp 16; Temp 98.9; Pulse Ox 100% ; Weight 49.9 kg; Height 5 ft. [facility] 3 in. (160.02 cm); Pain 8/10; 23:20 BP 169 / 69; Pulse 45; Resp 16; Pulse Ox 97% on R/A; [facility] 10/26 00:24 BP 175 / 67; Pulse 51; Resp 16; Pulse Ox 99% on R/A; [facility] 01:07 BP 165 / 75; Pulse 57; Resp 16; Pulse Ox 96% on R/A; [facility] 10/25 22:24 Body Mass Index 19.49 (49.90 kg, 160.02 cm) [facility] MDM: 01:22 Differential diagnosis: abrasion, contusion, fracture. Data reviewed: vital signs, [facility] nurses notes, radiologic studies, plain films. Counseling: I had a detailed discussion with the patient and/or guardian regarding: the historical points, exam findings, and any diagnostic results supporting the discharge/admit diagnosis, the presence of at least one elevated blood pressure reading (>120/80) during this emergency department visit, radiology results, the need for outpatient follow up, a orthopedic surgeon, to return to the emergency department if symptoms worsen or persist or if there are any questions or concerns that arise at home. Response to treatment: the patient's symptoms have markedly improved after treatment. 01:24 Patient medically screened. [facility] 10/25 22:53 Order name: Shoulder Left (2 View) XRAY [facility] 10/25 22:53 Order name: Humerus Left XRAY [facility] 10/25 22:53 Order name: Elbow Left 3 View XRAY [facility] 10/25 22:53 Order name: Forearm Left XRAY [facility] 10/25 23:02 Order name: IV Start; Complete Time: 23:11 [facility] 10/26 01:16 Order name: Shoulder Immobilizer; Complete Time: 01:23 [facility] Administered Medications: 10/25 23:11 Drug: morphine 2 mg Route: IVP; Site: right forearm; [facility] 23:11 Drug: Zofran (Ondansetron) 4 mg Route: IVP; Site: right forearm; [facility] 10/26 02:13 Follow up: Response: No adverse reaction [facility] 10/25 23:41 Drug: morphine 2 mg Route: IVP; Site: right forearm; [facility] 10/26 02:13 Follow up: Response: No adverse reaction [facility] 02:13 Drug: [place] (HYDROcodone-acetaminophen) 5 mg-325 mg 1 tabs Route: PO; [facility] 02:13 Follow up: Response: No adverse reaction; Medication administered at discharge. [facility] Disposition: 10/26/20 01:24 Discharged to Home. Impression: Proximal humerus Fracture, Left. - Condition is Stable. - Discharge Instructions: Humerus Fracture Treated With Immobilization, [id number]. - Prescriptions for Tylenol- Codeine #3 300-30 mg Oral Tablet - take 1 tablet by ORAL route every 4-6 hours As needed; 20 tablet. - Medication Reconciliation Form, Thank You Letter, Antibiotic Education, Prescription Opioid Use form. - Follow up: Private Physician; When: 1 - 2 days; Reason: Worsening of condition, Recheck today's complaints, Continuance of care, Re-evaluation by your physician. Follow up: Johnnie Medina MD; When: 1 - 2 days; Reason: Worsening of condition, Recheck today's complaints. Follow up: Dong Vyas MD; When: 1 - 2 days; Reason: Worsening of condition, Recheck today's complaints. - Problem is new. - Symptoms have improved. Signatures: Dispatcher [employer] EDBright Manzo MD MD mh7 Sami Shaver RN RN jm8 Corrections: (The following items were deleted from the chart) 02:14 01:24 10/26/2020 01:24 Discharged to Home. Impression: Proximal humerus Fracture, Left. jm8 Condition is Stable. Forms are Medication Reconciliation Form, Thank You Letter, Antibiotic Education, Prescription Opioid Use. Follow up: Private Physician; When: 1 - 2 days; Reason: Worsening of condition, Recheck today's complaints, Continuance of care, Re-evaluation by your physician. Follow up: Johnnie Medina; When: 1 - 2 days; Reason: Worsening of condition, Recheck today's complaints. Follow up: Dong Vyas; When: 1 - 2 days; Reason: Worsening of condition, Recheck today's complaints. Problem is new. Symptoms have improved. mh7
--- NOTE | 2020-10-26 01:24 | ER ---
Nurse's Notes [facility] Name: Leeann Cueva Age: 85 yrs Sex: Female : 1935 Arrival Date: 10/25/2020 Time: 22:21 Bed 7 Private MD: Diagnosis: Proximal humerus Fracture, Left Presentation: 10/25 22:24 Chief complaint: EMS states: patient fell at home 30 minutes prior to arrival. Patient jm8 hit left shoulder and left elbow. Denies LOC or hitting head. Coronavirus screen: Client denies travel out of the [place] in the last 14 days. At this time, the client does not indicate any symptoms associated with coronavirus-19. Ebola Screen: Patient negative for fever greater than or equal to 101.5 degrees Fahrenheit, and additional compatible Ebola Virus Disease symptoms Patient denies exposure to infectious person. Patient denies travel to an Ebola-affected area in the 21 days before illness onset. Initial Sepsis Screen: Does the patient meet any 2 criteria? No. Patient's initial sepsis screen is negative. Does the patient have a suspected source of infection? No. Patient's initial sepsis screen is negative. Risk Assessment: Do you want to hurt yourself or someone else? Patient reports no desire to harm self or others. Onset of symptoms was October 25, 2020 at 21:45. 22:24 Method Of Arrival: EMS: [facility] 22:24 Acuity: AALIYAH 3 jm8 Triage Assessment: 22:28 General: Appears in no apparent distress. comfortable, Behavior is calm, cooperative, jm8 appropriate for age. Pain: Complains of pain in left arm Pain currently is 8 out of 10 on a pain scale. Quality of pain is described as shooting, throbbing, Noted to be grimacing, guarding. EENT: No deficits noted. No signs and/or symptoms were reported regarding the EENT system. Neuro: No deficits noted. Level of Consciousness is awake, alert, obeys commands, Oriented to person, place, time. Cardiovascular: No deficits noted. Respiratory: No deficits noted. Airway is patent Trachea midline Respiratory effort is even, unlabored, Respiratory pattern is regular, symmetrical. GI: No deficits noted. No signs and/or symptoms were reported involving the gastrointestinal system. : No deficits noted. No signs and/or symptoms were reported regarding the genitourinary system. Derm: No deficits noted. No signs and/or symptoms reported regarding the dermatologic system. Musculoskeletal: Capillary refill < 3 seconds, Range of motion: limited in left shoulder, left elbow and left wrist Reports pain in left arm after fall 30 minutes prior to arrival. Historical: - Allergies: 22:28 Sulfa (Sulfonamide Antibiotics); jm8 - Home Meds: 22:28 aspirin 81 mg Oral TbEC 1 tab once daily [Active]; clopidogrel 75 mg Oral tab 1 tab jm8 once daily [Active]; CoQ-10 100 mg Oral cap daily [Active]; diltiazem HCl 180 mg Oral cpER 1 cap once daily [Active]; losartan 50 mg Oral tab 1 tab once daily [Active]; Nitrostat 0.4 mg SL subl 1 tab [Active]; potassium chloride 10 mEq Oral TbER 1 tab once daily [Active]; pravastatin 20 mg Oral tab 1 tab once daily [Active]; Restasis 0.05 % ophthalmic dpet 1 drop 2 times per day [Active]; torsemide 20 mg Oral tab 1 tab once daily [Active]; - PMHx: 22:28 angle closure glaucoma; CAD; endometrium cancer; Hypertension; melanoma; jm8 - PSHx: 22:28 None; jm8 - Immunization history:: Adult Immunizations up to date. - Social history:: Smoking status: Patient denies any tobacco usage or history of. Screenin:28 Abuse screen: Denies threats or abuse. Denies injuries from another. Nutritional [facility] screening: No deficits noted. Tuberculosis screening: No symptoms or risk factors identified. Fall Risk Fall in past 12 months (25 points). Vital Signs: 22:24 BP 184 / 75; Pulse 57; Resp 16; Temp 98.9; Pulse Ox 100% ; Weight 49.9 kg; Height 5 ft. jm8 3 in. (160.02 cm); Pain 8/10; 23:20 BP 169 / 69; Pulse 45; Resp 16; Pulse Ox 97% on R/A; jm8 10/26 00:24 BP 175 / 67; Pulse 51; Resp 16; Pulse Ox 99% on R/A; jm8 01:07 BP 165 / 75; Pulse 57; Resp 16; Pulse Ox 96% on R/A; jm8 10/25 22:24 Body Mass Index 19.49 (49.90 kg, 160.02 cm) 8 ED Course: 10/25 22:21 Patient arrived in ED. mw2 22:26 Triage completed. 8 22:28 Arm band placed on right wrist. jm8 22:30 Patient has correct armband on for positive identification. Bed in low position. Call [facility] light in reach. Side rails up X2. Adult w/ patient. 22:36 Bright Burrows MD is Attending Physician. [facility] 23:30 Inserted saline lock: in right forearm, using aseptic technique. 8 10/26 00:25 Shoulder Left (2 View) XRAY In Process Unspecified. EDMS 00:45 Humerus Left XRAY In Process Unspecified. EDMS 00:48 Forearm Left XRAY In Process Unspecified. EDMS 00:51 Elbow Left 3 View XRAY In Process Unspecified. EDMS 01:23 Johnnie Medina MD is Referral Physician. [facility] 01:23 Dong Vyas MD is Referral Physician. [facility] 02:12 No provider procedures requiring assistance completed. IV discontinued, intact. 8 Administered Medications: 10/25 23:11 Drug: morphine 2 mg Route: IVP; Site: right forearm; [facility] 23:11 Drug: Zofran (Ondansetron) 4 mg Route: IVP; Site: right forearm; [facility] 10/26 02:13 Follow up: Response: No adverse reaction [facility] 10/25 23:41 Drug: morphine 2 mg Route: IVP; Site: right forearm; 8 10/26 02:13 Follow up: Response: No adverse reaction [facility] 02:13 Drug: [place] (HYDROcodone-acetaminophen) 5 mg-325 mg 1 tabs Route: PO; [facility] 02:13 Follow up: Response: No adverse reaction; Medication administered at discharge. jm8 Outcome: 01:24 Discharge ordered by . [facility] 02:12 Discharged to home via wheelchair, with family. [facility] 02:12 Condition: good 02:12 Discharge instructions given to patient, family, Instructed on discharge instructions, follow up and referral plans. medication usage, Demonstrated understanding of instructions, follow-up care, medications, Prescriptions given X 1. 02:14 Patient left the ED. 8 Signatures: Dispatcher [employer] EDMO Jerry Clay mw2 Bright Burrows MD MD [facility] Sami Shaver RN RN jm8 Corrections: (The following items were deleted from the chart) 10/25 22:31 22:28 Fall Risk None identified. bev pablo
[2020-10-26] MEDS ORDERED: HYDROCODONE/APAP 5/325 MG TAB ONE (02:02)
[2020-10-26 02:28] VITALS: TEMP 98.9
[2020-10-26 02:33] VITALS: BP 165/75; O2SAT 96
--- NOTE | 2020-10-26 13:14 | RAD REPORT ---
EXAM DESCRIPTION: Shoulder Left 2 View CLINICAL HISTORY: Trauma COMPARISON: None. FINDINGS: 2 views of the left shoulder. No glenohumeral dislocation. Acute minimally displaced fract ure of the proximal left humerus. Degenerative spurring of the acromioclavicular joint. Osteopenia. N o acute abnormalities of visualized left ribs. Atherosclerotic calcification of the thoracic aorta. IMPRESSION: 1. Acute minimally displaced fracture of the proximal left humerus. Electronically signed by: Percy Meyer 10/26/2020 12:48 AM CDT Due to temporary technical issues with the PACS/Fluency reporting system, reports are being signed by the in house radiologist without review as a courtesy to ensure prompt reporting. The interpreting r adiologist is fully responsible for the content of the report.
--- NOTE | 2020-10-26 13:16 | RAD REPORT ---
EXAM DESCRIPTION: Humerus Left CLINICAL HISTORY: Trauma COMPARISON: None. FINDINGS: 2 views of the left humerus. . Acute minimally displaced fracture of the proximal left hum erus. Degenerative spurring of the acromioclavicular joint. Osteopenia. No acute abnormalities of vis ualized left ribs. IMPRESSION: 1. Acute minimally displaced fracture of the proximal left humerus. Due to temporary technical issues with the PACS/Fluency reporting system, reports are being signed by the in house radiologist without review as a courtesy to ensure prompt reporting. The interpreting r adiologist is fully responsible for the content of the report.
--- NOTE | 2020-10-26 13:16 | RAD REPORT ---
EXAM DESCRIPTION: Radiographic Examination COMPARISON: None. CLINICAL HISTORY: Trauma FINDINGS: 2 views of the left forearm and three views of the left elbow demonstrate no acute fractur e or dislocation. 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 Soft tissues are unremarkable. IMPRESSION: No acute findings of the left forearm and left elbow. Electronically signed by: Vincent Hodge MD 10/26/2020 12:57 AM CDT Due to temporary technical issues with the PACS/Fluency reporting system, reports are being signed by the in house radiologist without review as a courtesy to ensure prompt reporting. The interpreting r adiologist is fully responsible for the content of the report.
--- NOTE | 2020-10-26 13:19 | RAD REPORT ---
EXAM DESCRIPTION: Radiographic Examination COMPARISON: None. CLINICAL HISTORY: Trauma FINDINGS: 2 views of the left forearm and three views of the left elbow demonstrate no acute fractur e or dislocation. 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 Soft tissues are unremarkable. IMPRESSION: No acute findings of the left forearm and left elbow. Electronically signed by: Vincent Hodge MD 10/26/2020 12:57 AM CDT Due to temporary technical issues with the PACS/Fluency reporting system, reports are being signed by the in house radiologist without review as a courtesy to ensure prompt reporting. The interpreting r adiologist is fully responsible for the content of the report.
== END 2020-10-26 02:14 | disposition home or self-care (01) ==
LOC: ER 22:20
DX: S42.202A Unspecified fracture of upper end of left humerus, initial encounter for closed fracture (principal); W19.XXXA Unspecified fall, initial encounter; Y93.01 Activity, walking, marching and hiking; Z79.82 Long term (current) use of aspirin; Z88.2 Allergy status to sulfonamides; I10 Essential (primary) hypertension; I25.10 Atherosclerotic heart disease of native coronary artery without angina pectoris
CPT/HCPCS: 73080; 73090; 73060; 73030; J2270; J2405; 96374; 96375; 99284

== ENCOUNTER 2021-08-16 23:17 | Inpatient (IN) | payer OTHER ==
--- OUTSIDE RECORDS SUMMARY | 2021-08-16 23:26 | XMS REPORT | Continuity of Care Document ---
:1935 Author Organization [facility] t Address [address] [place] [address] Care Team Providers Name Role Phone [phone] Primary Care Physician Unavailable CATRACHITO Attending Clinician Unavailable Payers Payer Name Policy Type Policy Number Effective Date Expiration Date S mehran [employer] MED[employer] PPO [id number] 2019 00:00:00 Problems This patient has no known problems. Allergies, Adverse Reactions, Alerts This patient has no known allergies or adverse reactions. Medications This patient has no known medications. Procedures This patient has no known procedures. Encounters Start End Encounter Admission Attending Care Care Encounter Source Date/Time Date/Time Type Type Clinicians Facility Department ID 2020-06-08 2020-06-08 Outpatient [facility] [id number] [place] 00:00:00 00:00:[address] 2020-05-18 2020-05-18 Outpatient [facility] [id number] [place] 00:00:00 00:00:[address] 2020-04-01 2020-04-01 Outpatient [facility] [id number] 10:55:49 12:11:19 JENNIFER duarte 2020-02-05 2020-02-05 Outpatient [facility] [id number] 00:00:00 00:00:00 JENNIFER duarte 2019-10-23 2019-10-23 Outpatient [facility] [id number] 13:38:08 13:38:40 JENNIFER duarte Results This patient has no known results.
[2021-08-17 00:18] LABS: Hematocrit 39.9 % (36.0-45.0); Lymphocytes % 23.9 % (15.3-44.8); MPV 8.5 fL (7.6-11.3)
[2021-08-17] MEDS ORDERED: ONDANSETRON 4 MG/2 ML VIAL ONE (00:19)
[2021-08-17] MEDS ORDERED: cloNIDine HCL 0.1 MG TAB ONE (00:19)
[2021-08-17 00:36] LABS: Potassium 3.7 mmol/L (3.5-5.1); Troponin High Sensitivity 19.5 pg/mL (<58.9)
[2021-08-17] MEDS ORDERED: HYDRALAZINE HCL 20 MG/ML VIAL ONE (03:00)
--- NOTE | 2021-08-17 04:14 | ER ---
Nurse's Notes [facility] Name: Leeann Cuvea Age: 86 yrs Sex: Female : 1935 Arrival Date: 08/16/2021 Time: 23:25 Bed 7 Private MD: Diagnosis: Abdominal pain, Generalized;Bowel Obstuction;Nausea with vomiting, unspecified Presentation: 08/16 23:36 Chief complaint: Spouse and/or significant other states: vomiting starting around 1999 lg3 tonight. took blood pressure and it read 226/109 at home. vomiting has not stopped and has extreme abdominal pain. son reports pt has had an abdominal blockage for years but not certain the specifics. Coronavirus screen: Client denies travel out of the [place] in the last 14 days. At this time, the client does not indicate any symptoms associated with coronavirus-19. Ebola Screen: No symptoms or risks identified at this time. Initial Sepsis Screen: Does the patient meet any 2 criteria? No. Patient's initial sepsis screen is negative. Does the patient have a suspected source of infection? No. Patient's initial sepsis screen is negative. Risk Assessment: Do you want to hurt yourself or someone else? Patient reports no desire to harm self or others. Onset of symptoms was August 16, 2021. 23:36 Method Of Arrival: Wheelchair lg3 23:36 Acuity: AALIYAH 3 lg3 Triage Assessment: 23:40 General: Appears in no apparent distress. uncomfortable, Behavior is calm, cooperative. lg3 Pain: Complains of pain in abdomen. EENT: No deficits noted. No signs and/or symptoms were reported regarding the EENT system. Neuro: No deficits noted. Level of Consciousness is awake, alert, obeys commands, Oriented to person, place, time, situation. Cardiovascular: No deficits noted. Denies chest pain, shortness of breath. Respiratory: No deficits noted. Airway is patent Trachea midline Respiratory effort is even, unlabored, Respiratory pattern is regular, symmetrical. GI: Abdomen is flat, non-distended, Abd is soft X 4 quads Abdomen is tender to palpation in right upper quadrant and left upper quadrant Reports upper abdominal pain, cramping, epigastric pain, vomiting. : No deficits noted. No signs and/or symptoms were reported regarding the genitourinary system. Derm: No deficits noted. No signs and/or symptoms reported regarding the dermatologic system. Skin is intact, is thin. Musculoskeletal: No deficits noted. No signs and/or symptoms reported regarding the musculoskeletal system. Circulation, motion, and sensation intact. Capillary refill < 3 seconds, Range of motion: intact in all extremities. Historical: - Allergies: 23:40 Sulfa (Sulfonamide Antibiotics); lg3 - PMHx: 23:40 angle closure glaucoma; CAD; endometrium cancer; Hypertension; melanoma; lg3 - PSHx: 23:40 hysterectomy; pearson bone reconstruction; melanoma removal; lg3 - Immunization history:: Adult Immunizations up to date, Client reports receiving the 2nd dose of the Covid vaccine, pfizer X3. - Social history:: Smoking status: Patient denies any tobacco usage or history of. Patient/guardian denies using alcohol, street drugs. Screenin:43 Abuse screen: Denies threats or abuse. Denies injuries from another. Nutritional lg3 screening: No deficits noted. Tuberculosis screening: No symptoms or risk factors identified. Fall Risk None identified. Assessment: 23:45 General: Appears in no apparent distress. Behavior is calm, cooperative, appropriate ag7 for age. Pain: Complains of pain in abdomen Pain does not radiate. Pain currently is 6 out of 10 on a pain scale. Quality of pain is described as aching, crampy, Pain began suddenly, Is continuous. Neuro: Oriented to person, place, time, situation, Appropriate for age Oxygen System Tester are equal bilaterally Moves all extremities. Cardiovascular: Denies chest pain, Heart tones S1 S2 present Capillary refill < 3 seconds in bilateral fingers Clubbing of nail beds is absent JVD is absent Patient's skin is warm and dry. Pulses are palpable in right radial artery, right brachial artery, left radial artery and left brachial artery Rhythm is regular. Respiratory: Airway is patent Trachea midline Respiratory effort is even, unlabored, Respiratory pattern is regular, symmetrical, Breath sounds are clear bilaterally. GI: Pt is actively vomiting clear fluid, Bowel sounds hypoactive in right upper quadrant, left upper quadrant, right lower quadrant and left lower quadrant Abd is soft and non tender X 4 quads. Reports epigastric pain, nausea, normal bowel habits, last bowel movement 08/16/2021. 08/17 00:45 Reassessment: No changes from previously documented assessment. Patient and/or family ag7 updated on plan of care and expected duration. Pain level reassessed. Patient is alert, oriented x 3, equal unlabored respirations, skin warm/dry/pink. 01:44 Reassessment: No changes from previously documented assessment. Patient and/or family ag7 updated on plan of care and expected duration. Pain level reassessed. Patient is alert, oriented x 3, equal unlabored respirations, skin warm/dry/pink. 02:44 Reassessment: Patient and/or family updated on plan of care and expected duration. Pain ag7 level reassessed. Patient is alert, oriented x 3, equal unlabored respirations, skin warm/dry/pink. Patient denies pain at this time. 03:53 Reassessment: No changes from previously documented assessment. ag7 04:53 Reassessment: No changes from previously documented assessment. Patient and/or family ag7 updated on plan of care and expected duration. Pain level reassessed. Patient is alert, oriented x 3, equal unlabored respirations, skin warm/dry/pink. 05:26 Reassessment: No changes from previously documented assessment. Report called to tank Santana RN Rm 208. Vital Signs: 08/16 23:36 BP 173 / 105; Pulse 49; Resp 10 S; Temp 97.7(O); Pulse Ox 98% on R/A; Weight 52.16 kg lg3 (R); Height 5 ft. 3 in. (160.02 cm) (R); Pain 8/10; 08/17 01:15 BP 196 / 108; Pulse 49; Resp 15 S; Pulse Ox 98% on R/A; Pain 6/10; ag7 01:45 BP 196 / 81; Pulse 53; Resp 15 S; Pulse Ox 99% on R/A; Pain 6/10; ag7 02:00 BP 187 / 80; Pulse 49; Resp 15 S; Pulse Ox 97% on R/A; Pain 6/10; ag7 02:15 BP 172 / 78; Pulse 48; Resp 12 S; Pulse Ox 97% ; Pain 6/10; ag7 02:30 BP 176 / 71; Pulse 48; Resp 11 S; Pulse Ox 96% on R/A; Pain 6/10; ag7 02:45 BP 173 / 68; Pulse 45; Resp 15 S; Pulse Ox 97% on R/A; Pain 0/10; ag7 03:00 BP 156 / 66; Pulse 45; Resp 14 S; Pulse Ox 98% on R/A; Pain 0/10; ag7 03:15 BP 142 / 61; Pulse 75; Resp 13 S; Pulse Ox 99% on R/A; Pain 0/10; ag7 04:00 BP 165 / 67; Pulse 49; Resp 22 S; Pulse Ox 99% on R/A; Pain 0/10; ag7 05:00 BP 163 / 60; Pulse 48; Resp 18 S; Pulse Ox 98% on R/A; Pain 0/10; ag7 08/16 23:36 Body Mass Index 20.37 (52.16 kg, 160.02 cm) lg3 ED Course: 08/16 23:25 Patient arrived in ED. vc1 23:36 Domenic Gaston MD is Attending Physician. kdr 23:40 Triage completed. lg3 23:40 Arm band placed on right wrist. lg3 23:54 Allie Fuller, MARSHA is Primary Nurse. ag7 23:59 Inserted saline lock: 20 gauge in left antecubital area, using aseptic technique. Blood sm5 collected. 08/17 00:40 Patient has correct armband on for positive identification. Bed in low position. Call ag7 light in reach. Side rails up X 1. Adult w/ patient. 01:10 XRAY Chest (1 view) In Process Unspecified. EDMS 01:45 CT Chest, Abdomen, Pelvis - W/Contrast In Process Unspecified. EDMS 04:11 See Hernandez MD is Hospitalizing Provider. kdr 05:28 No provider procedures requiring assistance completed. ag7 05:37 Patient admitted, IV remains in place. ag7 Administered Medications: 00:25 Drug: cloNIDine 0.1 mg Route: PO; ag7 01:25 Follow up: Response: No adverse reaction; No change in condition ag7 00:25 Drug: Zofran (Ondansetron) 4 mg Route: IVP; Site: left antecubital; ag7 01:00 Follow up: Response: No adverse reaction; Marked relief of symptoms ag7 03:05 Drug: hydrALAZINE 10 mg Route: IVP; Site: left antecubital; ag7 03:52 Follow up: Response: No adverse reaction; Marked relief of symptoms ag7 Outcome: 04:13 Decision to Hospitalize by Provider. kdr 05:33 Admitted to Med/surg accompanied by tech, via wheelchair, room 208, with chart, Report ag7 called to Esther LARSON 05:33 Condition: stable 05:37 Patient left the ED. ag7 Signatures: Dispatcher [employer] EDDomenic Garrett MD MD kdr Gibson, Lacie, RN RN lg3 Mariana Young, RN RN sm5 Carlita Richardson RN RN vc1 Allie Fuller, RN RN ag7
--- NOTE | 2021-08-17 04:14 | EDPHYS ---
Physician Documentation [facility] Name: Leeann Cueva Age: 86 yrs Sex: Female : 1935 Arrival Date: 08/16/2021 Time: 23:25 Bed 7 Private MD: ED Physician Domenic Gaston HPI: 08/17 01:08 This 86 yrs old Female presents to ER via Wheelchair with complaints of kdr Vomiting and hypertension. 01:08 The patient presents to the emergency department with nausea, that is mild, vomiting, kdr that is intermittent, abdominal pain, of the suprapubic area, right lower quadrant and left lower quadrant. Onset: The symptoms/episode began/occurred suddenly, just prior to arrival, at 20:00. Possible causes: unknown. The symptoms are aggravated by nothing. The symptoms are alleviated by remaining still. Patient and spouse states that around 8:00 tonight, the patient started having vomiting. That time she took her blood pressure and it was noted to be 226/109. Since then the vomiting is stopped and she has had intermittent extreme abdominal pain that was slow down. Patient's son reports that she has had intermittent difficulty processing her food for years. Specifics and causes of this are not known to the patient son or . Son related that if the patient is able to vomit a few times and normally this clears the issue. She did vomit several times and is feeling better at this time.. Historical: - Allergies: 08/16 23:40 Sulfa (Sulfonamide Antibiotics); lg3 - PMHx: 23:40 angle closure glaucoma; CAD; endometrium cancer; Hypertension; melanoma; lg3 - PSHx: 23:40 hysterectomy; pearson bone reconstruction; melanoma removal; lg3 - Immunization history:: Adult Immunizations up to date, Client reports receiving the 2nd dose of the Covid vaccine, pfizer X3. - Social history:: Smoking status: Patient denies any tobacco usage or history of. Patient/guardian denies using alcohol, street drugs. ROS: 08/17 05:54 Constitutional: Negative for fever, chills, and weight loss, Eyes: Negative for injury, kdr pain, redness, and discharge, Neck: Negative for injury, pain, and swelling, Cardiovascular: Negative for chest pain, palpitations, and edema, Respiratory: Negative for shortness of breath, cough, wheezing, and pleuritic chest pain, Back: Negative for injury and pain, : Negative for injury, bleeding, discharge, and swelling, MS/Extremity: Negative for injury and deformity, Skin: Negative for injury, rash, and discoloration, Neuro: Negative for headache, weakness, numbness, tingling, and seizure activity. Psych: Negative for depression, anxiety, suicide ideation, homicidal ideation, and hallucinations, Allergy/Immunology: Negative for hives, rash, and allergies, Endocrine: Negative for neck swelling, polydipsia, polyuria, polyphagia, and marked weight changes, Hematologic/Lymphatic: Negative for swollen nodes, abnormal bleeding, and unusual bruising. Abdomen/GI: Positive for abdominal pain, nausea and vomiting, Negative for abdominal cramps, abdominal distension, anorexia, dysphagia, hematemesis, black/tarry stool, rectal pain, rectal bleeding, bowel incontinence. Exam: 00:12 ECG was reviewed by the Attending Physician. kdr 05:54 Constitutional: This is a well developed, well nourished patient who is awake, alert, kdr and in no acute distress. Head/Face: Normocephalic, atraumatic. Eyes: Pupils equal round and reactive to light, extra-ocular motions intact. Lids and lashes normal. Conjunctiva and sclera are non-icteric and not injected. Cornea within normal limits. Periorbital areas with no swelling, redness, or edema. Neck: Trachea midline, no thyromegaly or masses palpated, and no cervical lymphadenopathy. Supple, full range of motion without nuchal rigidity, or vertebral point tenderness. No Meningismus. Chest/axilla: Normal chest wall appearance and motion. Nontender with no deformity. No lesions are appreciated. Cardiovascular: Regular rate and rhythm with a normal S1 and S2. No gallops, murmurs, or rubs. Normal PMI, no JVD. No pulse deficits. Respiratory: Lungs have equal breath sounds bilaterally, clear to auscultation and percussion. No rales, rhonchi or wheezes noted. No increased work of breathing, no retractions or nasal flaring. Back: No spinal tenderness. No costovertebral tenderness. Full range of motion. Skin: Warm, dry with normal turgor. Normal color with no rashes, no lesions, and no evidence of cellulitis. MS/ Extremity: Pulses equal, no cyanosis. Neurovascular intact. Full, normal range of motion. Neuro: Awake and alert, GCS 15, oriented to person, place, time, and situation. Cranial nerves II-XII grossly intact. Motor strength 5/5 in all extremities. Sensory grossly intact. Cerebellar exam normal. Normal gait. Psych: Awake, alert, with orientation to person, place and time. Behavior, mood, and affect are within normal limits. 05:54 Abdomen/GI: Inspection: abdomen appears normal, Bowel sounds: diminished, Palpation: soft, mild abdominal tenderness, in the right lower quadrant and left lower quadrant. Vital Signs: 08/16 23:36 BP 173 / 105; Pulse 49; Resp 10 S; Temp 97.7(O); Pulse Ox 98% on R/A; Weight 52.16 kg lg3 (R); Height 5 ft. 3 in. (160.02 cm) (R); Pain 8/10; 08/17 01:15 BP 196 / 108; Pulse 49; Resp 15 S; Pulse Ox 98% on R/A; Pain 6/10; ag7 01:45 BP 196 / 81; Pulse 53; Resp 15 S; Pulse Ox 99% on R/A; Pain 6/10; ag7 02:00 BP 187 / 80; Pulse 49; Resp 15 S; Pulse Ox 97% on R/A; Pain 6/10; ag7 02:15 BP 172 / 78; Pulse 48; Resp 12 S; Pulse Ox 97% ; Pain 6/10; ag7 02:30 BP 176 / 71; Pulse 48; Resp 11 S; Pulse Ox 96% on R/A; Pain 6/10; ag7 02:45 BP 173 / 68; Pulse 45; Resp 15 S; Pulse Ox 97% on R/A; Pain 0/10; ag7 03:00 BP 156 / 66; Pulse 45; Resp 14 S; Pulse Ox 98% on R/A; Pain 0/10; ag7 03:15 BP 142 / 61; Pulse 75; Resp 13 S; Pulse Ox 99% on R/A; Pain 0/10; ag7 04:00 BP 165 / 67; Pulse 49; Resp 22 S; Pulse Ox 99% on R/A; Pain 0/10; ag7 05:00 BP 163 / 60; Pulse 48; Resp 18 S; Pulse Ox 98% on R/A; Pain 0/10; ag7 08/16 23:36 Body Mass Index 20.37 (52.16 kg, 160.02 cm) lg3 MDM: 04:13 Patient medically screened. kdr 05:54 Data reviewed: vital signs, nurses notes, lab test result(s), radiologic studies. kdr Counseling: I had a detailed discussion with the patient and/or guardian regarding: the historical points, exam findings, and any diagnostic results supporting the discharge/admit diagnosis, lab results, radiology results, the need for further work-up and treatment in the hospital. 08/17 00:21 Order name: CBC with Automated Diff EDMS 08/17 00:27 Order name: Basic Metabolic Panel; Complete Time: 02:35 EDMS 08/17 00:27 Order name: Troponin High Sensitivity; Complete Time: 02:35 EDMS 08/17 00:31 Order name: Lipase; Complete Time: 02:35 EDMS 08/17 04:26 Order name: COVID-19 (Coronavirus) Document "Date of Onset" if Symptomatic vc1 08/17 04:27 Order name: COVID-19/FLU A+B EDMS 08/17 04:38 Order name: Basic Metabolic Panel EDVT 08/17 04:38 Order name: Basic Metabolic Panel EDVT 08/17 04:38 Order name: CBC with Automated Diff EDMS 08/17 04:38 Order name: CBC with Automated Diff EDMS 08/17 00:02 Order name: XRAY Chest (1 view) kdr 08/17 00:02 Order name: EKG; Complete Time: 00:22 kdr 08/17 00:02 Order name: Cardiac monitoring; Complete Time: 00:02 kdr 08/17 00:02 Order name: EKG - Nurse/Tech; Complete Time: 00:13 kdr 08/17 00:02 Order name: IV Saline Lock; Complete Time: 00:02 kdr 08/17 00:02 Order name: Labs collected and sent; Complete Time: 00:02 kdr 08/17 00:02 Order name: O2 Per Protocol; Complete Time: 00:02 kdr 08/17 00:31 Order name: CT Chest, Abdomen, Pelvis - W/Contrast kdr 08/17 04:38 Order name: NPO EDMS 08/17 04:38 Order name: Lipase EDMS 08/17 04:38 Order name: Lipase EDMS 08/17 04:38 Order name: Liver (Hepatic) Function EDVT 08/17 04:38 Order name: Liver (Hepatic) Function EDVT 08/17 00:02 Order name: O2 Sat Monitoring; Complete Time: 00:02 kdr EC:12 Rate is 48 beats/min. Rhythm is irregular, Sinus bradycardia with Multifocal PVCs. QRS kdr [place] is Normal. [place] interval is normal. QRS interval is normal. QT interval is normal. Clinical impression: Sinus bradycardia. Administered Medications: 00:25 Drug: cloNIDine 0.1 mg Route: PO; ag7 01:25 Follow up: Response: No adverse reaction; No change in condition ag7 00:25 Drug: Zofran (Ondansetron) 4 mg Route: IVP; Site: left antecubital; ag7 01:00 Follow up: Response: No adverse reaction; Marked relief of symptoms ag7 03:05 Drug: hydrALAZINE 10 mg Route: IVP; Site: left antecubital; ag7 03:52 Follow up: Response: No adverse reaction; Marked relief of symptoms ag7 Disposition Summary: 08/17/21 04:13 Hospitalization Ordered Hospitalization Status: Inpatient Admission kdr Provider: See Hernandez Location: Telemetry/MedSurg (Inpatient) kdr Condition: Fair kdr Problem: new kdr Symptoms: have improved kdr Bed/Room Type: Standard [facility] Room Assignment: 208(08/17/21 05:14) cg Diagnosis - Abdominal pain, Generalized kdr - Bowel Obstuction kdr - Nausea with vomiting, unspecified kdr Forms: - Medication Reconciliation Form kdr - SBAR form kdr Signatures: Dispatcher [employer] EDVT Domenic Gaston MD MD kdr Brittny Yoo, RN RN cg Margaux Davis, MARSHA RN lg3 Maria Esther Pruett PA PA sb3 Allie Fuller, RN RN ag7 Corrections: (The following items were deleted from the chart) 00:30 00:22 BASIC METABOLIC PANEL+C.LAB.BRZ ordered. EDMS EDMS 00:30 00:22 CBC+H.LAB.BRZ ordered. EDMS EDMS 00:30 00:22 Troponin High Sensitivity+C.LAB.BRZ ordered. EDMS EDMS 00:30 00:22 LIPASE+C.LAB.BRZ ordered. EDVT EDMS 05:14 04:13 kdr cg
[2021-08-17] MEDS ORDERED: MORPHINE 4 MG/ML SYR IV PRN (04:34)
[2021-08-17] MEDS ORDERED: ACETAMINOPHEN 500 MG TAB PO PRN (04:34)
[2021-08-17] MEDS ORDERED: ONDANSETRON 4 MG/2 ML VIAL IV PRN (04:34)
[2021-08-17 05:03] LABS: SARS-COV-2 RT PCR NEGATIVE (NEGATIVE)
[2021-08-17] MEDS: D5 0.45 NS 1,000 ML IV SCH ×3 (06:31→18:26)
--- NOTE | 2021-08-17 09:52 | RAD REPORT ---
EXAM DESCRIPTION: RAD - Abdomen W Erect - 08/17/2021 9:33 am CLINICAL HISTORY: abd pain/ bowel obstruction Pain COMPARISON: Chest Abdomen Pelvis W Cont dated 08/17/2021 FINDINGS: A few mildly prominent small bowel loops are seen in the lower abdomen. The loops are air and fluid filled. No pneumoperitoneum seen. Contrast is present in the urinary bladder. No free intra peritoneal air suspected.
[2021-08-17 11:18] VITALS: BMI 20.5
--- NOTE | 2021-08-17 12:09 | RAD REPORT ---
EXAM DESCRIPTION: CT CHEST ABDOMEN PELVIS WITH IV CONTRAST CLINICAL HISTORY: ABDOMINAL PAIN COMPARISON: None Available TECHNIQUE: Multiple helical axial tomographic images were obtained of the chest, abdomen, and pelvis following administration of intravenous contrast. Coronal and sagittal reformatted images were obtai reji. This exam was performed according to our departmental dose-optimization program, which includes autom ated exposure control, adjustment of the mA and/or kV according to patient size and/or use of iterati ve reconstruction technique. FINDINGS: CHEST: Thyroid gland: Heterogeneous density is demonstrated with few nodular densities measuring up to 1.5 c m. A few small coarse calcifications in the thyroid are present. Axilla: unremarkable. Pulmonary arteries: Pulmonary arteries appear patent. No evidence of pulmonary embolism. Aorta: Aortic atherosclerosis is present. No evidence of aortic dissection or aneurysm. Mediastinum: Mild nonspecific dilatation of the esophagus noted with fluid. No adenopathy. Heart: Heart is mildly enlarged. Coronary artery calcifications are present. Lungs/airways: No consolidation. Airways are patent. Pleural spaces: No significant pleural effusion. No pneumothorax. Osseous: Chronic appearing fracture deformity of the left humeral neck noted. Degenerative changes of the spine noted. Soft tissues: Unremarkable. Abdomen and pelvis: Liver: Homogenous attenuation is noted. Gallbladder/biliary: Cholecystectomy changes are present. There is dilatation of the common bile duct measuring up to 1.2 cm in diameter. Pancreas: Atrophic changes noted. There is mild prominence of the main pancreatic duct. Spleen: Calcified splenic granulomas are present. No splenomegaly. Adrenals: Unremarkable. Kidneys and ureters: Atrophic changes are present. There is a 1.8 cm cyst in the midpole of the right kidney. No evidence of hydronephrosis. Normal enhancement. Bladder: Unremarkable. Pelvic organs: Unremarkable. Bowel: Multiple dilated small bowel loops are demonstrated containing fluid with air-fluid levels. Th ere is an apparent transition between dilated and decompressed small bowel in the lower midabdomen (s eries 501, image 56) suggestive of small bowel obstruction. Fecalized small bowel proximal to the tra nsition noted. No evidence of bowel wall thickening. Appendix appears unremarkable. Vasculature: Aortoiliac atherosclerosis is present. Peritoneum: No free air. There is a small amount of ascites. Lymph nodes: Unremarkable. Soft tissues: There is a small fluid containing umbilical hernia. Bones: Degenerative changes of the lumbar spine noted. There is mild anterior subluxation of L4 relat francesco to L5. IMPRESSION: 1. No acute findings within the chest. 2. Findings suggestive of small bowel obstruction with transition point in the lower midabdomen. 3. Small amount of ascites. 4. Dilatation of the common bile duct which is nonspecific in the setting of prior cholecystectomy. 5. Heterogeneous density of the thyroid gland with few nodular densities measuring up to 1.5 cm. No nemergent follow-up thyroid ultrasound can be obtained if clinically indicated. Electronically signed by: Naveen Cunningham MD 08/17/2021 2:40 AM CDT Due to temporary technical issues with the PACS/Fluency reporting system, reports are being signed by the in house radiologists without review as a courtesy to insure prompt reporting. The interpreting radiologist is fully responsible for the content of the report.
--- NOTE | 2021-08-17 12:48 | P.HP ---
Certification for Inpatient Patient admitted to: Inpatient With expected LOS: >2 Midnights Practitioner: I am a practitioner with admitting privileges, knowledge of patient current condition, hospital course, and medical plan of care. Services: Services provided to patient in accordance with Admission requirements found in Title 42 Section 412.3 of the Code of Federal Regulations Patient History Date of Service: 08/17/21 Reason for admission: ABDOMEN PAIN History of Present Illness: JANIE WOKE UP ABDOMEN PAIN YSTERDAY AND HAD NAUSEA , VOMITING WITH IT. SINCE THEN SHE IS OKAY. SHE DOES NOT HAVE NGT INSERTED YET. SHE HAS REFUSED THIS IN ER. SHE ALSO REFUSES SURGERY AT THIS POINT. Allergies Sulfa (Sulfonamide Antibioti Allergy (Uncoded 10/13/17 08:24) Unknown - Past Medical/Surgical History Has patient received pneumonia vaccine in the past: Yes Diabetic: No -: HTN -: Left leg- reconstruction surgery sheen -: Hysterectomy - Social History Smoking Status: Never smoker Alcohol use: No CD- Drugs: No Caffeine use: Yes Place of Residence: Home Review of Systems 10-point ROS is otherwise unremarkable Physical Examination - Vital Signs Temperature: 97.1 F Blood Pressure: 153/74 Pulse: 54 Respirations: 18 Pulse Ox (%): 99 - Physical Exam General: Cachectic, Mild distress HEENT: Atraumatic, PERRLA, Mucous membr. moist/pink, EOMI, Sclerae nonicteric Neck: Supple, 2+ carotid pulse no bruit, No LAD, Without JVD or thyroid abnormality Respiratory: Clear to auscultation bilaterally, Normal air movement Cardiovascular: Regular rate/rhythm, Normal S1 S2 Gastrointestinal: Tenderness (LOWER ABDOMEN MILD TO MODERATE.) Musculoskeletal: No tenderness Integumentary: No rashes Neurological: Normal gait, Normal speech, Normal strength at 5/5 x4 extr, Normal tone, Normal affect Lymphatics: No axilla or inguinal lymphadenopathy - Studies Laboratory Data (last 24 hrs) 08/17/21 00:02: WBC Cancelled, Hgb Cancelled, Hct Cancelled, Plt Count Cancelled 08/17/21 00:02: Sodium Cancelled, Potassium Cancelled, BUN Cancelled, Creatinine Cancelled, Glucose Cancelled, Lipase Cancelled 08/16/21 23:58: WBC 12.4 H, Hgb 13.0, Hct 39.9, Plt Count 255 08/16/21 23:58: Sodium 140, Potassium 3.7, BUN 21 H, Creatinine 1.05, Glucose 158 H, Lipase 118 Assessment and Plan - Problems (Diagnosis) (1) Small bowel obstruction Current Visit: Yes Status: Acute Plan: I ADVISE NGT WITH KYLAH AND SAME WITH DR. BRAMBILA. SHE MAY NOT NEED SURGERY IF SHE DOES THIS. IV FLUIDS. (2) Presence of stent in coronary artery in patient with coronary artery disease Current Visit: Yes Status: Chronic Plan: SINCE 2004, STABLE ON MEDS. NO ACUTE CHANGES. - Advance Directives Does patient have a Living Will: Yes Does patient have a Durable POA for Healthcare: Yes
--- NOTE | 2021-08-17 14:04 | RAD REPORT ---
EXAM DESCRIPTION: XR Chest, 1 View CLINICAL HISTORY: CHEST PAIN TECHNIQUE: Frontal view of the chest. COMPARISON: Correlation is made with left shoulder x-ray dated 10/25/2020 FINDINGS: Lungs: Coarsened interstitial markings. No focal consolidation. Pleural space: Unremarkable. No pneumothorax. Heart: The cardiac silhouette is enlarged, in part accentuated by portable technique. Mediastinum: Unremarkable. Bones/joints: Multilevel spondylosis. Left humeral head/neck fracture again demonstrated. Vasculature: Thoracic aortic atherosclerosis. IMPRESSION: No acute disease. Electronically signed by: Joshua Perez MD 08/17/2021 1:27 AM CDT Due to temporary technical issues with the PACS/Fluency reporting system, reports are being signed by the in house radiologists without review as a courtesy to insure prompt reporting. The interpreting radiologist is fully responsible for the content of the report.
--- NOTE | 2021-08-17 14:36 | CON ---
Date of Consultation: 08/17/2021 Reason For Service: Small bowel obstruction. History Of Present Illness: This is the case of an 86-year-old, who comes to us with nausea and vomi ting for 1 day of duration. She also was found to have blood pressure of 226 systolic. Because she has abdominal pain, she was brought to the ER, found to have bowel obstruction, and a surgical consul t was obtained. Apparently, the patient has this blockage in the past. She is reluctant to have any surgical intervention at this moment. She feels better today compared with last night. She thought she only came here for the blood pressure. She does not remember eating anything out of the usual. Denies any dysuria, hematuria, hematochezia, or melena. She does not recall her previous colonoscop ies. Review of Systems: Ten points otherwise unremarkable. Allergies: SULFA. Past Surgical History: Surgeries include endometrial cancer, hysterectomy for endometrial cancer. T he patient has a midline incision on the abdomen, history of melanoma, and glaucoma. Social History: She does not smoke. She does not drink alcohol. Family History: Unknown. Physical Examination: General: The patient is awake, alert. HEENT: Pupils are equal and reactive. Anicteric. Neck: Supple. Chest: Clear. Abdomen: Soft and depressible. No guarding or rebound. No peritoneal signs. Mild generalized dist ention and tenderness, but no guarding or rebound. Extremities: Good capillary refill. Rectal: Deferred. Laboratory Data: CAT scan of the abdomen and pelvis, official results still pending, although appare ntly shows findings consistent with small bowel obstruction. Blood work shows WBC count of 12.4 with hemoglobin of 13, and potassium 3.7. Assessment: It is an 86-year-old patient with history of surgeries in the past, on and off obstructi on as per person, right now came with small bowel obstruction. I explained to her the options of lap arotomy with possible bowel resection, possible ostomy with benefits, alternatives, and risks includi ng, but not limited to infection, bleeding, damage to adjacent structures, anesthesia complication, r ecurrence, TN, and even . She also understands this may not relieve any symptoms. She might ne ed more than one surgical intervention. She definitely do not want any surgery done at this time and she wants sometime to recover and clinically she is stable. We will be happy to help her and assist her in that case. Still if she does not improve in the next 1-2 days, she may have to reconsider th e option of laparotomy. We will follow the patient with you and give more recommendations as the gian e develops. DULCE/CHAS Voice ID: [id number] Report ID: [id number]
--- NOTE | 2021-08-17 16:44 | RAD REPORT ---
EXAM DESCRIPTION: RAD - Chest Single View - 08/17/2021 2:56 pm CLINICAL HISTORY: NG placement COMPARISON: Portable 08/17/2021 TECHNIQUE: AP portable chest image was obtained 08/17/2021 2:56 pm . FINDINGS: No acute lung parenchymal process. No acute cardiomediastinal finding. Trachea is midline. No measurable pleural effusion and no pneumothorax. NG tube has been placed. The tube is curled in the midthoracic esophagus. IMPRESSION: NG tube is curled in the midthoracic esophagus. Tip is superiorly directed at the level of the aortic arch.
[2021-08-17] MEDS: HYDRALAZINE HCL 20 MG/ML VIAL IV PRN (17:17)
[2021-08-17] MEDS: MORPHINE 2 MG/ML SYR IV PRN (18:10)
--- NOTE | 2021-08-17 18:52 | RAD REPORT ---
EXAM DESCRIPTION: RAD - Chest Single View - 08/17/2021 6:41 pm CLINICAL HISTORY: NG placement TECHNIQUE: AP portable chest image was obtained 08/17/2021 6:41 pm . FINDINGS: NG tube has been repositioned and advanced. NG tube is curled in the stomach. Tip is near the GE junction. Side port is in the proximal stomach. There is no abnormal bend or kink of the tubin g. This should be adequate positioning for NG tube function. No other significant finding or interval change. IMPRESSION: NG tube has been advanced into the stomach as detailed.
[2021-08-18] MEDS: D5 0.45 NS 1,000 ML IV SCH ×3 (02:48→08:52)
[2021-08-18 04:16] LABS: Absolute Lymphocytes (CBC) 1.6 K/uL (0.7-4.9); Hematocrit 32.7 % (36.0-45.0); Lymphocytes % 32.7 % (15.3-44.8); MPV 8.3 fL (7.6-11.3); RBC Red Blood Cell Count 3.56 M/uL (3.86-4.86)
[2021-08-18 04:35] LABS: Albumin 2.4 g/dL (3.4-5.0); Bilirubin Direct 0.1 mg/dL (0-0.2); Bilirubin Total 0.4 mg/dL (0.2-1.0); Potassium 3.7 mmol/L (3.5-5.1); Protein, Total 5.3 g/dL (6.4-8.2)
--- NOTE | 2021-08-18 08:11 | EKG ---
Test Date: 2021-08-17 Test Time: 00:05:48 Debt And Budget Counselor: CHAIM MEASUREMENT RESULTS: Intervals: Rate: 48 NE: 194 QRSD: 88 QT: 450 QTc: 402 [place]: P: 61 NE: 194 QRS: 50 T: -23 INTERPRETIVE STATEMENTS: Sinus bradycardia with frequent premature ventricular complexes Possible Inferior infarct, age undetermined Abnormal ECG Compared to ECG 06/04/2019 12:10:36 Ventricular premature complex(es) now present Myocardial infarct finding now present Electronically Signed On 08-18-21 08:07:15 CDT by Petr Moura
[2021-08-18] MEDS: CLOPIDOGREL 75 MG TABLET PO SCH (08:52)
[2021-08-18] MEDS: HYDRALAZINE HCL 20 MG/ML VIAL IV PRN ×2 (09:00→20:31)
[2021-08-18] MEDS: HOME MED 1 EA UNK (Cyclosporine [Restasis] Droperette) OPTH SCH ×2 (09:00→20:32)
--- NOTE | 2021-08-18 10:14 | RAD REPORT ---
EXAM DESCRIPTION: RAD - Abdomen Single View - 08/18/2021 9:39 am CLINICAL HISTORY: sbo COMPARISON: Chest Single View dated 08/17/2021; Chest Abdomen Pelvis W Cont dated 08/17/2021; Abdomen W Erect dated 08/17/2021 FINDINGS: Small bowel dilatation centrally measuring up to 3 cm with mild improvement noted. Gas is still seen within the colon. No acute osseous abnormality.Visualized lungs are unremarkable.NG tube o verlies the stomach. Surgical clips in the pelvis. IMPRESSION: Slightly improved small-bowel dilatation centrally with increased colonic gas. This woul d suggest some improvement however continued attention on follow-up. Could consider a gastrografin ch allenge with radiographic follow-up.
--- NOTE | 2021-08-18 13:08 | PN ---
Reason For Service: Small bowel obstruction. Subjective: The patient is feeling better. She has an NG tube in place. She is feeling some bowel sounds, but no gas yet. No bowel movement yet either. Objective: Chest: Clear. Abdomen: Soft, depressible. No guarding or rebound. Softly distended. No peritonitis. Extremities: Good capillary refill. Laboratory Data: Blood work shows WBC count of 4.9. X-ray still pending. Assessment: An 86-year-old patient with small bowel obstruction. The patient feels better, clinical ly looks better. We are waiting on the abdominal x-rays to see if radiologically we see some improve ment too. She understands the options of laparotomy, although she does not want use that option at t his moment. DULCE/CHAS Voice ID: [id number] Report ID: [id number]
--- NOTE | 2021-08-18 21:16 | P.PN ---
Subjective Date of Service: 08/18/21 Chief Complaint: ABDOMEN PAIN Subjective: Improving SHE HAD MINIMAL PASSAGE OF GAS. NO BM YET. ABDOMEN STILL IS DISTENDED SOME. Review of Systems 10-point ROS is otherwise unremarkable General: Weakness Gastrointestinal: Distention, As per HPI Physical Examination - Vital Signs Temperature: 98.0 F Blood Pressure: 161/71 Pulse: 53 Respirations: 18 Pulse Ox (%): 95 - Physical Exam General: Acute distress, Mild distress HEENT: Atraumatic, PERRLA, EOMI Neck: Supple, JVD not distended Respiratory: Clear to auscultation bilaterally, Normal air movement Cardiovascular: Regular rate/rhythm, Normal S1 S2 Gastrointestinal: Normal bowel sounds, No tenderness Musculoskeletal: No tenderness Integumentary: No rashes Neurological: Normal speech, Normal tone, Normal affect Lymphatics: No axilla or inguinal lymphadenopathy - Studies Medications List Reviewed: Yes Assessment And Plan - Current Problems (Diagnosis) (1) Small bowel obstruction Current Visit: Yes Status: Acute Plan: I ADVISE NGT WITH KYLAH AND SAME WITH DR. BRAMBILA. SHE MAY NOT NEED SURGERY IF SHE DOES THIS. IV FLUIDS. SHE SHOULD OPEN UP SOON I THINK. (2) Presence of stent in coronary artery in patient with coronary artery disease Current Visit: Yes Status: Chronic Plan: SINCE 2004, STABLE ON MEDS. NO ACUTE CHANGES.
[2021-08-19] MEDS: D5 0.45 NS 1,000 ML IV SCH ×2 (04:15→21:30)
[2021-08-19] MEDS: HYDRALAZINE HCL 20 MG/ML VIAL IV PRN (04:17)
[2021-08-19] MEDS: MORPHINE 2 MG/ML SYR IV PRN (05:50)
[2021-08-19] MEDS ORDERED: HYDRALAZINE HCL 20 MG/ML VIAL IV SCH (08:00)
--- NOTE | 2021-08-19 08:50 | RAD REPORT ---
EXAM DESCRIPTION: RAD - Abdomen Single View - 08/19/2021 5:56 am CLINICAL HISTORY: Small Bowel Obstruction Pain COMPARISON: Abdomen Single View dated 08/18/2021 FINDINGS: Mild improvement in bowel gas pattern is seen. Enteric tube is coiled in the stomach. No s uspicious calcifications. No significant bony findings. Surgical clips are seen in the pelvis. IMPRESSION: Mild improvement in bowel gas pattern is seen since yesterday's study.
[2021-08-19] MEDS: HOME MED 1 EA UNK (Cyclosporine [Restasis] Droperette) OPTH SCH ×2 (09:00→20:35)
[2021-08-19] MEDS: CLOPIDOGREL 75 MG TABLET PO SCH ×2 (09:00→09:45)
--- NOTE | 2021-08-19 11:51 | PN ---
Date of Progress Note: 08/19/2021 Reason For Service: Small bowel obstruction. Subjective: This is the case of an 86-year-old patient with intermittent small bowel obstruction, ca me this time with the same condition. The patient feels better. She has no abdominal pain. No naus ea. No vomiting. NG tube is in place, minimal drainage. She thinks she probably passed some gas. Clinically, she feels better too. Review of Systems: Ten points otherwise unremarkable. Physical Examination: ABDOMEN: Soft and depressible. No guarding or rebound. No guarding or rebound. Extremities: Good capillary refill. Laboratory Data: X-rays were repeated today. Official report still pending, although it shows some improvement in the gas pattern of the intestines. Blood work shows WBC count of 4.9. Assessment: This is an 86-year-old patient with intermittent bowel obstruction. She thinks she has passed some gas. She feels a lot better. No abdominal pain. No symptoms. The x-ray today looks be tter to also discuss that with the primary doctor. She understands the options. The option will be laparotomy, second option will be continue conservative treatment and #3 will be parenteral nutrition , it has been 3 days since last meal and we are afraid she is going to deteriorate from nutrition sta ndpoint. She has those 2 options. She does not want to use a surgical option at this moment. I und erstand. Then, at the same time, we have to make the decision about calorie intake. We encouraged ambulation. HM/MODL Voice ID: [id number] Report ID: [id number]
--- NOTE | 2021-08-19 13:40 | P.PN ---
Subjective Date of Service: 08/19/21 Chief Complaint: ABDOMEN PAIN Subjective: Improving SHE HAD MINIMAL PASSAGE OF GAS. NO BM YET. ABDOMEN STILL IS DISTENDED SOME. SHE HAS PASSED MORE GAS. NO FEVER. Physical Examination - Vital Signs Temperature: 97.3 F Blood Pressure: 194/70 Pulse: 62 Respirations: 16 Pulse Ox (%): 97 - Physical Exam General: Oriented x3, Mild distress HEENT: Atraumatic, PERRLA, EOMI Neck: Supple, JVD not distended Respiratory: Clear to auscultation bilaterally, Normal air movement Cardiovascular: Regular rate/rhythm, Normal S1 S2 Gastrointestinal: Normal bowel sounds, No tenderness Musculoskeletal: No tenderness Integumentary: No rashes Neurological: Normal speech, Normal tone, Normal affect Lymphatics: No axilla or inguinal lymphadenopathy - Studies Medications List Reviewed: Yes Assessment And Plan - Current Problems (Diagnosis) (1) Small bowel obstruction Current Visit: Yes Status: Acute Plan: I ADVISE NGT WITH LIS AND SAME WITH DR. BRAMBILA. SHE MAY NOT NEED SURGERY IF SHE DOES THIS. IV FLUIDS. SHE SHOULD OPEN UP SOON I THINK. NOT OPENED UP YET. CONT NGT LIS. (2) Presence of stent in coronary artery in patient with coronary artery disease Current Visit: Yes Status: Chronic Plan: SINCE 2004, STABLE ON MEDS. NO ACUTE CHANGES. (3) HTN (hypertension) Current Visit: Yes Status: Acute Plan: RAISE MEDS TO HYDRALAZINE 25 MV IV QID. SHE CAN'T TAKE B BLOCKERS HR IS SLOW. Qualifiers: Hypertension type: primary hypertension Qualified Code(s): I10 - Essential (primary) hypertension
[2021-08-19] MEDS: HYDRALAZINE HCL 20 MG/ML VIAL IV SCH ×2 (13:47→20:33)
--- NOTE | 2021-08-19 20:58 | P.PN ---
Subjective Date of Service: 08/19/21 Chief Complaint: ABDOMEN PAIN Subjective: Improving NO BM YET. SMALL AMT OF GAS PASSED. Physical Examination - Vital Signs Temperature: 98.3 F Blood Pressure: 194/73 Pulse: 58 Respirations: 19 Pulse Ox (%): 94 - Physical Exam General: Mild distress, Other (NG LIS) HEENT: Atraumatic, PERRLA, EOMI Neck: Supple, JVD not distended Respiratory: Clear to auscultation bilaterally, Normal air movement Cardiovascular: Regular rate/rhythm, Normal S1 S2 Gastrointestinal: Normal bowel sounds, Distended Musculoskeletal: No tenderness Integumentary: No rashes Neurological: Normal speech, Normal tone, Normal affect Lymphatics: No axilla or inguinal lymphadenopathy - Studies Medications List Reviewed: Yes Assessment And Plan - Current Problems (Diagnosis) (1) Small bowel obstruction Current Visit: Yes Status: Acute Plan: I ADVISE NGT WITH LIS AND SAME WITH DR. BRAMBILA. SHE MAY NOT NEED SURGERY IF SHE DOES THIS. IV FLUIDS. SHE SHOULD OPEN UP SOON I THINK. NOT OPENED UP YET. CONT NGT LIS. IV FLUIDS. LOVENOX SC. (2) Presence of stent in coronary artery in patient with coronary artery disease Current Visit: Yes Status: Chronic Plan: SINCE 2004, STABLE ON MEDS. NO ACUTE CHANGES. (3) HTN (hypertension) Current Visit: Yes Status: Acute Plan: RAISE MEDS TO HYDRALAZINE 25 MV IV QID. SHE CAN'T TAKE B BLOCKERS HR IS SLOW. Qualifiers: Hypertension type: primary hypertension Qualified Code(s): I10 - Essential (primary) hypertension
[2021-08-19] MEDS: NITROGLYCERIN 0.4 MG/HR (10 MG) PATCH TD SCH (22:00)
[2021-08-20] MEDS: HYDRALAZINE HCL 20 MG/ML VIAL IV SCH ×4 (01:08→21:15)
[2021-08-20] MEDS: CLOPIDOGREL 75 MG TABLET PO SCH (09:00)
[2021-08-20] MEDS: HOME MED 1 EA UNK (Cyclosporine [Restasis] Droperette) OPTH SCH ×2 (09:00→21:00)
[2021-08-20] MEDS: MORPHINE 2 MG/ML SYR IV PRN (13:53)
--- NOTE | 2021-08-20 17:09 | P.PN ---
Subjective Date of Service: 08/20/21 Chief Complaint: ABDOMEN PAIN Subjective: Improving NO BM YET. SMALL AMT OF GAS PASSED. HAD SOME BM TODAY WITH GAS. Physical Examination - Vital Signs Temperature: 98.2 F Blood Pressure: 175/90 Pulse: 63 Respirations: 17 Pulse Ox (%): 98 - Physical Exam General: Oriented x3, Mild distress HEENT: Atraumatic, PERRLA, EOMI Neck: Supple, JVD not distended Respiratory: Clear to auscultation bilaterally, Normal air movement Cardiovascular: Regular rate/rhythm, Normal S1 S2 Gastrointestinal: Normal bowel sounds, Distended Musculoskeletal: No tenderness Integumentary: No rashes Neurological: Normal speech, Normal tone, Normal affect Lymphatics: No axilla or inguinal lymphadenopathy - Studies Medications List Reviewed: Yes Assessment And Plan - Current Problems (Diagnosis) (1) Small bowel obstruction Current Visit: Yes Status: Acute Plan: SHOULD OPEN UP TOMORROW DR VASQUEZ CALLED TO DISCUSS. I CALLED SON AND LEFT MESSAGE. (2) Presence of stent in coronary artery in patient with coronary artery disease Current Visit: Yes Status: Chronic Plan: SINCE 2004, STABLE ON MEDS. NO ACUTE CHANGES. (3) HTN (hypertension) Current Visit: Yes Status: Acute Plan: RAISE MEDS TO HYDRALAZINE 25 MV IV QID. SHE CAN'T TAKE B BLOCKERS HR IS SLOW. Qualifiers: Hypertension type: primary hypertension Qualified Code(s): I10 - Essential (primary) hypertension
[2021-08-20] MEDS: ENOXAPARIN 40 MG/0.4 ML SQ SCH (17:30)
[2021-08-20] MEDS ORDERED: CLONIDINE 0.2 MG/PATCH TD SCH (17:30)
[2021-08-20] MEDS: D5 0.45 NS 1,000 ML IV SCH (18:12)
[2021-08-20] MEDS: NITROGLYCERIN 0.4 MG/HR (10 MG) PATCH TD SCH (21:00)
[2021-08-21] MEDS: NITROGLYCERIN 0.4 MG/HR (10 MG) PATCH TD SCH ×2 (00:42→20:38)
[2021-08-21] MEDS: D5 0.45 NS 1,000 ML IV SCH ×2 (01:36→18:37)
[2021-08-21] MEDS: HYDRALAZINE HCL 20 MG/ML VIAL IV SCH ×4 (02:36→20:40)
--- NOTE | 2021-08-21 03:32 | PN ---
Date of Progress Note: 08/20/2021 Reason For Service: Small bowel obstruction. Subjective: This is the case of an 86-year-old patient, who comes to us with small bowel obstruction . Today, she is feeling better. No nausea. No vomiting. She is tolerating clear liquid diet. She states she is passing flatus and 1 bowel movement. Review of Systems: Ten points otherwise unremarkable. Objective: Chest: Clear. Abdomen: Soft and depressible. No guarding or rebound. Extremities: Good capillary refill. Plan: We discussed with her once again options. She would like to continue conservative treatment i f possible. She is doing great that she is improving her diet. We are going to keep advancing the d iet, we are going to advance to full liquid diet and see how she does. If she fails, then she may finn ve to consider surgical option. If she continue that then she may eventually be discharged with a pu ree soft diet. We are going to go nice and slow on her. DULCE/CHAS Voice ID: [id number] Report ID: [id number]
[2021-08-21 08:02] LABS: Absolute Lymphocytes (CBC) 1.9 K/uL (0.7-4.9); Hematocrit 34.5 % (36.0-45.0); Lymphocytes % 34.8 % (15.3-44.8); MPV 9.3 fL (7.6-11.3); RBC Red Blood Cell Count 3.74 M/uL (3.86-4.86)
[2021-08-21 08:07] LABS: Potassium 3.3 mmol/L (3.5-5.1)
[2021-08-21 08:11] LABS: Albumin 2.7 g/dL (3.4-5.0); Bilirubin Direct 0.2 mg/dL (0-0.2); Bilirubin Total 0.9 mg/dL (0.2-1.0)
[2021-08-21] MEDS: HOME MED 1 EA UNK (Cyclosporine [Restasis] Droperette) OPTH SCH ×2 (08:46→21:00)
[2021-08-21] MEDS: CLOPIDOGREL 75 MG TABLET PO SCH (08:46)
[2021-08-21] MEDS ORDERED: POTASSIUM PHOS 20 MEQ in NA CHLORIDE 0.9% 250 ML IV ONE (10:00)
--- NOTE | 2021-08-21 10:05 | P.PN ---
Subjective Date of Service: 08/21/21 Chief Complaint: ABDOMEN PAIN Subjective: Improving PASSED A LOT OF GAS AND LIQUID BM SO FAR. Review of Systems 10-point ROS is otherwise unremarkable General: Weakness Physical Examination - Vital Signs Temperature: 98.3 F Blood Pressure: 171/80 Pulse: 78 Respirations: 20 Pulse Ox (%): 94 - Physical Exam General: Oriented x3, Mild distress HEENT: Atraumatic, PERRLA, EOMI Neck: Supple, JVD not distended Respiratory: Clear to auscultation bilaterally, Normal air movement Cardiovascular: Regular rate/rhythm, Normal S1 S2 Gastrointestinal: Normal bowel sounds, No tenderness Musculoskeletal: No tenderness Integumentary: No rashes Neurological: Normal speech, Normal tone, Normal affect Lymphatics: No axilla or inguinal lymphadenopathy - Studies Medications List Reviewed: Yes Assessment And Plan - Current Problems (Diagnosis) (1) Small bowel obstruction Current Visit: Yes Status: Acute Plan: SHOULD OPEN UP TOMORROW DR VASQUEZ CALLED TO DISCUSS. I CALLED SON AND LEFT MESSAGE. (2) Presence of stent in coronary artery in patient with coronary artery disease Current Visit: Yes Status: Chronic Plan: SINCE 2004, STABLE ON MEDS. NO ACUTE CHANGES. (3) HTN (hypertension) Current Visit: Yes Status: Acute Plan: RAISE MEDS TO HYDRALAZINE 25 MV IV QID. SHE CAN'T TAKE B BLOCKERS HR IS SLOW. Qualifiers: Hypertension type: primary hypertension Qualified Code(s): I10 - Essential (primary) hypertension (4) Hypokalemia Current Visit: Yes Status: Acute Plan: REPLACE K. (5) Protein calorie malnutrition Current Visit: Yes Status: Acute Plan: PRESENT ON ADMISSION. FROM ACUTE CONDITION. SHOULD IMPROVE WHEN SBO RESOLVES. Qualifiers: Protein-calorie malnutrition severity: mild Qualified Code(s): E44.1 - Mild protein-calorie malnutrition
[2021-08-21] MEDS ORDERED: POTASSIUM 25 MEQ EFFERV TAB PO ONE (11:00)
[2021-08-21] MEDS: POTASSIUM PHOS 20 MEQ in NA CHLORIDE 0.9% 250 ML IV ONE ×2 (14:00→14:44)
[2021-08-21] MEDS: ENOXAPARIN 40 MG/0.4 ML SQ SCH (17:59)
--- NOTE | 2021-08-21 23:09 | PN ---
Date of Progress Note: 08/21/2021 Diagnosis: Small bowel obstruction. Subjective: The patient is feeling better. No shortness of breath. No chest pain. Passing flatus, having bowel movement. Abdominal pain is gone. Objective: Chest: Clear. Abdomen: Soft and depressible. No guarding or rebound. No peritoneal signs. Extremities: Good capillary refill. Plan: We are going to advance diet to pureed diet. We going to get an x-ray in the morning. If we see that clinically she is better and the x-ray shows improvement then she may go home on pureed diet . If she developed bowel obstruction again, then she may have to consider surgical intervention befo re she goes home. She understands that plan. DULCE/CHAS Voice ID: [id number] Report ID: [id number]
[2021-08-22] MEDS: HYDRALAZINE HCL 20 MG/ML VIAL IV SCH ×2 (02:54→08:40)
[2021-08-22 03:33] LABS: Absolute Lymphocytes (CBC) 1.2 K/uL (0.7-4.9); Hematocrit 33.6 % (36.0-45.0); Lymphocytes % 22.1 % (15.3-44.8); MPV 8.7 fL (7.6-11.3); RBC Red Blood Cell Count 3.63 M/uL (3.86-4.86)
[2021-08-22 03:58] LABS: Potassium 3.9 mmol/L (3.5-5.1)
--- NOTE | 2021-08-22 07:35 | RAD REPORT ---
EXAM DESCRIPTION: RAD - Abdomen Single View - 08/22/2021 7:25 am CLINICAL HISTORY: Bowel obstruction COMPARISON: Abdomen Single View dated 08/19/2021 FINDINGS: Find single KUB image was submitted. Cardiac leads overlie the upper abdomen. NG tube has been removed. Stomach does not appear dilated. Volume of air and stool within the colon has not de león ed. Air is present down to the distal rectum level. Small bowel dilatation is similar to fractionally improved. No free air or pneumatosis have developed. No suspicious calcifications. No significant bony findings IMPRESSION: Dilated small bowel pattern is similar to slightly improved from August 19 imaging. Air and stool volume in the colon not changed. Air is present in the distal rectum. NG tube has been removed. Stomach does not appear dilated.
[2021-08-22] MEDS ORDERED: POTASSIUM CL SA 10 MEQ TAB PO ONE (08:00)
[2021-08-22 08:31] VITALS: BP 135/61; TEMP 98.9
[2021-08-22] MEDS: CLOPIDOGREL 75 MG TABLET PO SCH (08:40)
[2021-08-22] MEDS: HOME MED 1 EA UNK (Cyclosporine [Restasis] Droperette) OPTH SCH (09:00)
[2021-08-22 09:13] VITALS: O2SAT 95
--- NOTE | 2021-08-22 09:19 | P.DS ---
Admission Date: 08/17/21 Discharge Date: 08/22/21 Disposition: ROUTINE DISCHARGE Discharge Condition: FAIR Reason for Admission: ABDOMEN PAIN - Problems (1) Small bowel obstruction Current Visit: Yes Status: Acute (2) Presence of stent in coronary artery in patient with coronary artery disease Current Visit: Yes Status: Chronic (3) HTN (hypertension) Current Visit: Yes Status: Acute Qualifiers: Hypertension type: primary hypertension Qualified Code(s): I10 - Essential (primary) hypertension (4) Hypokalemia Current Visit: Yes Status: Acute (5) Protein calorie malnutrition Current Visit: Yes Status: Acute Qualifiers: Protein-calorie malnutrition severity: mild Qualified Code(s): E44.1 - Mild protein-calorie malnutrition Brief History of Present Illness: JANIE WOKE UP ABDOMEN PAIN YSTERDAY AND HAD NAUSEA , VOMITING WITH IT. SINCE THEN SHE IS OKAY. SHE DOES NOT HAVE NGT INSERTED YET. SHE HAS REFUSED THIS IN ER. SHE ALSO REFUSES SURGERY AT THIS POINT. Hospital Course: SHE IS FEELING GREAT. SHE HAS BM , LIQUID AND PASSES GAS. SHE IS TOLERATING FOOD, SHE WILL KEEP PUREE VEGETABLES. SHE IS STABLE TO GO HOME PER DR. VASQUEZ. HE WILL KEEP CLOSE CHECK ON HER. I STOPPED DILTIAZEM HR WAS LOW AND CHANGED TO HYDRALAZINE. Vital Signs/Physical Exam: Temp Pulse Resp BP Pulse Ox 98.9 F 60 18 135/61 95 08/22/21 08:00 08/22/21 08:00 08/22/21 08:00 08/22/21 08:00 08/22/21 08:00 General: Alert, In no apparent distress HEENT: Atraumatic, PERRLA, EOMI Neck: Supple, JVD not distended Respiratory: Clear to auscultation bilaterally, Normal air movement Cardiovascular: Regular rate/rhythm, Normal S1 S2 Gastrointestinal: Normal bowel sounds, No tenderness Musculoskeletal: No tenderness Integumentary: No rashes Neurological: Normal speech, Normal tone, Normal affect Lymphatics: No axilla or inguinal lymphadenopathy Laboratory Data at Discharge: WBC 5.5 K/uL (4.3-10.9) 08/22/21 03:18 Hgb 11.0 g/dL (12.0-15.0) L 08/22/21 03:18 Hct 33.6 % (36.0-45.0) L 08/22/21 03:18 Plt Count 190 K/uL (152-406) 08/22/21 03:18 Sodium 138 mmol/L (136-145) 08/22/21 03:18 Potassium 3.9 mmol/L (3.5-5.1) 08/22/21 03:18 BUN 12 mg/dL (7-18) 08/22/21 03:18 Creatinine 0.91 mg/dL (0.55-1.3) 08/22/21 03:18 Glucose 99 mg/dL (74-106) 08/22/21 03:18 Magnesium 2.0 mg/dL (1.8-2.4) 08/21/21 07:38 Total Bilirubin 0.9 mg/dL (0.2-1.0) 08/21/21 07:38 AST 21 U/L (15-37) 08/21/21 07:38 ALT 13 U/L (12-78) 08/21/21 07:38 Alkaline Phosphatase 93 U/L (45-117) 08/21/21 07:38 Lipase 73 U/L (73-393) 08/18/21 03:58 Home Medications: Cholecalciferol (Vitamin D3) [Vitamin D3] 1 tab PO DAILY 08/17/21 Clopidogrel Bisulfate [Clopidogrel] 75 mg PO DAILY 08/17/21 Cyclosporine [Restasis] 1 drop EACH EYE BID 08/17/21 Docusate Sodium 1 tab PO DAILY 08/17/21 Isosorbide Mononitrate [Isosorbide Mononitrate ER] 1 tab PO BID 08/17/21 Krill/Om-3/Dha/Epa/Phospho/Ast [Megared Henderson-3 Krill 500 mg] 500 mg PO DAILY 08/17/21 L.acidoph,Paracasei, B.lactis [Probiotic] 1 tab PO BID 08/17/21 Losartan Potassium [Cozaar] 1 tab PO BID 08/17/21 Potassium Chloride 1 tab PO DAILY 08/17/21 Pravastatin Sodium 1 tab PO DAILY 08/17/21 Torsemide [Demadex*] 1 tab PO DAILY 08/17/21 Ubidecarenone/Vit E/Vit E Mix [Co-Enzyme Q10 100 mg Softgel] 1 tab PO DAILY 08/17/21 Hydralazine HCl 50 mg PO TID #100 tablet 08/22/21 New Medications: Hydralazine HCl 50 mg PO TID #100 tablet Followup: See Hernandez MD [Primary Care Provider] -
== END 2021-08-22 11:35 | disposition home or self-care (01) | DRG 389 ==
LOC: ER 23:17 → ERHOLD 08-17 04:36 → 2ND 08-17 05:26
PROVIDERS: ADMIT Internal Medicine; ATTEND Internal Medicine
DX: K56.609 Unspecified intestinal obstruction, unspecified as to partial versus complete obstruction (principal); E44.1 Mild protein-calorie malnutrition; I25.10 Atherosclerotic heart disease of native coronary artery without angina pectoris; I10 Essential (primary) hypertension; E87.6 Hypokalemia; Z68.20 Body mass index [BMI] 20.0-20.9, adult; Z85.42 Personal history of malignant neoplasm of other parts of uterus; Z95.5 Presence of coronary angioplasty implant and graft; Z88.2 Allergy status to sulfonamides; Z20.822 Contact with and (suspected) exposure to COVID-19
CPT/HCPCS: 0240U; 36415; 71045; 71260; 74018; 74019; 74177; 80048; 80076; 83690; 83735; 84132; 84484; 85025; 93005; 96374; 96375; 97116; 97161; 97530; 99285; J0360; J1650; J2270; J2405; J7050; J7799; Q9967

== ENCOUNTER 2022-03-04 20:44 | Observation (INO) | payer OTHER ==
--- OUTSIDE RECORDS SUMMARY | 2022-03-04 20:47 | XMS REPORT | Continuity of Care Document ---
:1935 Author Organization [facility] t Address [address] [place] [address] Care Team Providers Name Role Phone [phone] Primary Care Physician Unavailable Manjinder SEALS, Lionel Niño Attending Clinician Froy SURGERY SCHEDULING COORDINATORFrancoC, Zeny Navarrete Attending Clinician [phone] JENNIFER WINSTON Attending Clinician Unavailable Payers Payer Name Policy Type Policy Number Effective Date Expiration Date S mehran [employer] MED[employer]ARE PPO [id number] 2019 00:00:00 Problems This patient has no known problems. Allergies, Adverse Reactions, Alerts Allergy Allergy Status Severity Reaction(s) Onset Inactive Treating Comm ents Source Name Type Date Date Clinician Sulfa Propensi Active [facility] (Sulfona ty to 6-30 st mide adverse 00:00: Hospita Antibiot reaction 00 l ics) s to drug Social History Social Habit Start Date Stop Date Quantity Comments Source Sex Assigned At [birth year] [facility] 00:00:00 00:00:00 Smoking Status Start Date Stop Date Source Tobacco smoking consumption unknown [facility] Medications Ordered Filled Start Stop Current Ordering Indication Dosage Frequency Signature Comments Components Source Medication Medication Date Date Medication? Clinician (SIG) Name Name potassium Yes 20meq QD Take 20 Meth allyssa chloride 1-[address] (K-DUR) 20 00:00: mouth once H ospita MEQ CR 00 daily. l tablet pravastatin Yes 20mg QD Take 20 mg [facility] (PRAVACHOL) 1-[address] 20 MG 00:00: nightly. Hospita tablet 00 l isosorbide Yes 30mg QD Take 30 mg M [facility] mononitrate 1-[address] (IMDUR) 30 00:00: once Hospita MG 24 hr 00 daily. l tablet clonIDINE 2015-05 Yes 1 TAB [facility] (CATAPRES) 2-[address] 0.1 MG 00:00: HOURS Hospita tablet 00 NEEDED FOR l SYSTOLIC >175OR PENN >90 diltiazem Yes [facility] CD 5-30 st (CardIZEM 00:00: Hospita CD) 180 MG 00 l 24 hr capsule RESTASIS Yes PUT 1 DROP Met [facility] 0.05 % 08-[address] ophthalmic 00:00: EYES TWICE H [facility]spita emulsion 00 A DAY l clopidogrel Yes 75mg QD Take 75 mg [facility] (PLAVIX) 75 4-[address] mg tablet 00:00: once Hospita 00 daily. l Immunizations Ordered Immunization Filled Immunization Date Status Commen ts Source Name Name [facility] COVID-19 MRNA 2020-06-08 Completed [facility] VACCINATION 00:00:00 Hospital PFIZER COVID-19 MRNA 2020-05-18 Completed [facility] VACCINATION 00:00:00 Hospital Procedures Procedure Date / Time Performed Performing Clinician Sourc e XR ABD/PELVIC EXTERNAL 2021-08-22 12:15:54 [facility] STUDY XR ABD/PELVIC EXTERNAL 2021-08-19 10:45:28 [facility] STUDY XR ABD/PELVIC EXTERNAL 2021-08-18 14:29:32 [facility] STUDY XR CHEST EXTERNAL STUDY 2021-08-17 23:36:29 [facility] XR CHEST EXTERNAL STUDY 2021-08-17 19:46:43 [facility] XR ABD/PELVIC EXTERNAL 2021-08-17 14:25:[address] [facility] STUDY CT CHEST ABD PEL 2021-08-17 06:29:50 [facility] EXTERNAL STUDY XR CHEST EXTERNAL STUDY 2021-08-17 05:40:[address] [facility] [address] CHEST ABD PEL 2021-08-17 05:31:00 Lionel Dunbar [facility] EXTERNAL STUDY Plan of Care Planned Activity Planned Date Details Comments Source Future Scheduled 2022-03-04 HEPATITIS B VACCINES Met [facility] Test 19:51:40 (1 of 3 - 3-dose series) [code = HEPATITIS B VACCINES (1 of 3 - 3-dose series)] Future Scheduled 2022-03-04 SHINGLES VACCINES (1 Met [facility] Test 19:51:40 of 2) [code = SHINGLES VACCINES (1 of 2)] Future Scheduled 2022-03-04 65+ PNEUMOCOCCAL [facility] Test 19:51:40 VACCINE (2 - PCV) [code = 65+ PNEUMOCOCCAL VACCINE (2 - PCV)] Future Scheduled 2022-03-04 COVID-19 VACCINE (4 - Me [facility] Test 19:51:40 Booster for Pfizer series) [code = COVID-19 VACCINE (4 - Booster for Pfizer series)] Future Scheduled 2022-03-04 INFLUENZA VACCINE Method [facility] Test 19:51:40 [code = INFLUENZA VACCINE] Encounters Start End Encounter Admission Attending Care Care Encounter Source Date/Time Date/Time Type Type Clinicians Facility Department ID 2021-09-10 2021-09-10 [facility] Lionel Dunbar 1.2.840.1 [id number] [facility] 14:31:14 23:59:00 Encounter [place] [id number] 748 s t 3.430.2.7 Hospit a .3.899182 l .8 2021-09-10 2021-09-10 [facility] Lionel Dunbar 1.2.840.1 [id number] [facility] 14:30:27 14:30:27 Encounter [place] [id number] 621 s t 3.430.2.7 Hospit a .3.330591 l .8 2021-09-10 2021-09-10 [facility] Lionel Dunbar 1.2.840.1 [id number] [facility] 14:30:26 14:30:26 Encounter [place] [id number] 617 s t 3.430.2.7 Hospit a .3.202392 l .8 2021-09-10 2021-09-10 [facility], Lioenl 1.2.840.1 [id number] [facility] 14:22:45 14:29:00 Encounter [place] [id number] 699 s t 3.430.2.7 Hospit a .3.712853 l .8 2021-09-10 2021-09-10 [facility], Lionel 1.2.840.1 [id number] [facility] 14:22:44 14:29:00 Encounter [place] [id number] 695 s t 3.430.2.7 Hospit a .3.170255 l .8 2021-09-10 2021-09-10 [facility] Lionel 1.2.840.1 [id number] [facility] 14:22:35 14:29:00 Encounter [place] [id number] 677 s t 3.430.2.7 Hospit a .3.702064 l .8 2021-09-10 2021-09-10 [facility] Lionel 1.2.840.1 [id number] [facility] 14:22:34 14:29:00 Encounter [place] 74487.1.1 675 s t 3.430.2.7 Hospit a .3.161283 l .8 2021-09-10 2021-09-10 [facility], Lionel 1.2.840.1 [id number] [facility] 14:22:25 14:29:00 Encounter [place] [id number] 656 s t 3.430.2.7 Hospit a .3.853890 l .8 2021-09-10 2021-09-10 [facility] Lionel 1.2.840.1 [id number] [facility] 14:21:04 14:21:04 Encounter [place] [id number] 514 s t 3.430.2.7 Hospit a .3.373274 l .8 2021-09-10 2021-09-10 [facility] [id number] [place] 00:00:00 00:00:[address] 2021-09-10 2021-09-10 Outpatient DUNBAR, LIONEL [facility] [id number] [place] 00:00:00 00:00:[address] 2021-09-10 2021-09-10 Outpatient DUNBAR, LIONEL [facility] [id number] [place] 00:00:00 00:00:[address] 2021-09-10 2021-09-10 Outpatient DUNBAR, LIONEL [facility] 2100 [id number] [place] 00:00:00 00:00:[address] 2021-09-10 2021-09-10 Outpatient DUNBAR, LIONEL [facility] 2100 [id number] [place] 00:00:00 00:00:[address] 2021-09-10 2021-09-10 Outpatient DUNBAR, LIONEL [facility] 2100 [id number] [place] 00:00:00 00:00:[address] 2021-09-10 2021-09-10 Outpatient DUNBAR, LIONEL [facility] 2100 [id number] [place] 00:00:00 00:00:[address] 2021-09-10 2021-09-10 Outpatient DUNBAR, LIONEL [facility] 2100 [id number] [place] 00:00:00 00:00:[address] 2021-09-10 2021-09-10 Orders Dunbar, Lionel 1.2.840.1 [id number] [facility] 00:00:00 00:00:00 Only [place] [address] 3.430.2.7 Hospit a .3.601012 l .8 2021-09-10 2021-09-10 Outpatient DUNBAR, LIONEL [facility] 2100 [id number] [place] 00:00:00 00:00:[address] 2021-08-27 2021-08-27 [facility]at [place] 1.2.840.1 [id number] [facility] 00:00:00 00:00:00 ion my, [address]35.1.[address] [place] 3.430.2.7 Hospi ta Navarrete .3.652351 l .8 2020-06-08 2020-06-08 Outpatient [facility] [id number] [place] 00:00:00 00:00:[address] 2020-05-18 2020-05-18 Outpatient [facility] [id number] [address] [place] [address] 00:00:00 00:00:[address] 2020-04-01 2020-04-01 Outpatient DENNIS WINSTON [facility] [id number] 10:55:49 12:11:19 JENNIFER duarte 2020-02-05 2020-02-05 Outpatient DENNIS WINSTON [facility] [id number] 00:00:00 00:00:00 JENNIFER duarte 2019-10-23 2019-10-23 Outpatient DENNIS WINSTON [facility] [id number] 13:38:08 13:38:40 JENNIFER duarte Results This patient has no known results.
[2022-03-04 21:41] LABS: Absolute Lymphocytes (CBC) 1.5 K/uL (0.7-4.9); Hematocrit 38.5 % (36.0-45.0); Lymphocytes % 15.6 % (15.3-44.8); MPV 8.1 fL (7.6-11.3); RBC Red Blood Cell Count 4.09 M/uL (3.86-4.86)
[2022-03-04] MEDS ORDERED: ONDANSETRON 4 MG/2 ML VIAL ONE (21:41)
[2022-03-04] MEDS ORDERED: NA CHLORIDE 0.9% 1,000 ML ONE (21:41)
[2022-03-04 21:52] LABS: Albumin 3.3 g/dL (3.4-5.0); Bilirubin Total 0.3 mg/dL (0.2-1.0); Potassium 4.6 mmol/L (3.5-5.1); Protein, Total 6.8 g/dL (6.4-8.2)
--- NOTE | 2022-03-04 21:59 | RAD REPORT ---
EXAM DESCRIPTION: CT - Abdomen Pelvis W Contrast - 03/04/2022 9:43 pm CLINICAL HISTORY: Abdominal pain COMPARISON: July 2021 TECHNIQUE: Computed axial tomography of the abdomen pelvis was obtained. 100 cc Isovue-300 was admin istered intravenously. Oral contrast was not requested which limits evaluation of bowel and appendix All CT scans are performed using dose optimization technique as appropriate and may include automated exposure control or mA/KV adjustment according to patient size. FINDINGS: Cholecystectomy. Hepatic and splenic granulomas. The pancreas and adrenals are unremarkable. Small renal cysts. Renal cortical thinning perhaps second marquez to prior inflammation. Fluid is present throughout large and small bowel. Several mildly dilated loops small bowel are prese nt IMPRESSION: Fluid throughout large and small bowel probably an enteritis. Early/partial small bowel obstruction although possible is considered less likely
--- NOTE | 2022-03-04 23:10 | EDPHYS ---
Physician Documentation [facility] Name: Leeann Cueva Age: 86 yrs Sex: Female : 1935 Arrival Date: 03/04/2022 Time: 20:46 Bed 14 Private MD: ED Physician Domenic Gsaton HPI: 03/06 04:19 This 86 yrs old Female presents to ER via EMS with complaints of Abdominal Pain. kdr 04:21 Patient called EMS to bring her to the ED because she was having abdominal pain with kdr nausea and some dizziness. She was also getting a high blood pressure reading on her machine. She states that she has a history of bowel blockages and was concerned that she may have a recurrence. Patient appears nontoxic and does not require emergent intervention on initial presentation. Onset: The symptoms/episode began/occurred gradually, just prior to arrival, today. Severity of symptoms: At their worst the symptoms were mild in the emergency department the symptoms have resolved. The patient has experienced similar episodes in the past, several times. The patient has not recently seen a physician. Historical: - Allergies: 03/04 20:50 Sulfa (Sulfonamide Antibiotics); tw5 - Home Meds: 21:52 clopidogrel 75 mg Oral tab 1 tab once daily [Active]; hydralazine 50 mg Oral tab 1 tab tw5 3 times a day [Active]; potassium chloride 20 mEq oral TbER [Active]; isosorbide mononitrate 30 mg Oral Tb24 2 tabs once daily [Active]; losartan 50 mg Oral tab 1 tab 2 times per day [Active]; torsemide 20 mg oral tab 2 tabs once daily [Active]; Restasis 0.05 % ophthalmic (eye) dpet 1 drop every 12 hours [Active]; pravastatin 20 mg Oral tab 1 tab once daily [Active]; CoQ-10 100 mg Oral cap daily [Active]; docusate sodium 100 mg Oral cap 1 cap once daily [Active]; - PMHx: 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 It has been more than one year since last vaccine. - Social history:: Smoking status: Patient denies any tobacco usage or history of. ROS: 03/06 04:21 Constitutional: Negative for fever, chills, and weight loss, Eyes: Negative for injury, kdr pain, redness, and discharge, ENT: Negative for injury, pain, and discharge, Neck: Negative for injury, pain, and swelling, Cardiovascular: Negative for chest pain, palpitations, and edema, Respiratory: Negative for shortness of breath, cough, wheezing, and pleuritic chest pain, Back: Negative for injury and pain, : Negative for injury, bleeding, discharge, and swelling, MS/Extremity: Negative for injury and deformity, Skin: Negative for injury, rash, and discoloration, Neuro: Negative for headache, weakness, numbness, tingling, and seizure activity. Psych: Negative for depression, anxiety, suicide ideation, homicidal ideation, and hallucinations, Allergy/Immunology: Negative for hives, rash, and allergies, Endocrine: Negative for neck swelling, polydipsia, polyuria, polyphagia, and marked weight changes, Hematologic/Lymphatic: Negative for swollen nodes, abnormal bleeding, and unusual bruising. Abdomen/GI: Positive for abdominal pain, nausea and vomiting, Negative for constipation, abdominal cramps, abdominal distension, anorexia, dysphagia, hematemesis, rectal pain, rectal bleeding. Exam: 04:21 Constitutional: This is a well developed, well nourished patient who is awake, alert, kdr and in no acute distress. Head/Face: Normocephalic, atraumatic. Eyes: Pupils equal round and reactive to light, extra-ocular motions intact. Lids and lashes normal. Conjunctiva and sclera are non-icteric and not injected. Cornea within normal limits. Periorbital areas with no swelling, redness, or edema. Neck: Trachea midline, no thyromegaly or masses palpated, and no cervical lymphadenopathy. Supple, full range of motion without nuchal rigidity, or vertebral point tenderness. No Meningismus. Chest/axilla: Normal chest wall appearance and motion. Nontender with no deformity. No lesions are appreciated. Cardiovascular: Regular rate and rhythm with a normal S1 and S2. No gallops, murmurs, or rubs. Normal PMI, no JVD. No pulse deficits. Respiratory: Lungs have equal breath sounds bilaterally, clear to auscultation and percussion. No rales, rhonchi or wheezes noted. No increased work of breathing, no retractions or nasal flaring. Abdomen/GI: Soft, non-tender, with normal bowel sounds. No distension or tympany. No guarding or rebound. No evidence of tenderness throughout. Back: No spinal tenderness. No costovertebral tenderness. Full range of motion. Skin: Warm, dry with normal turgor. Normal color with no rashes, no lesions, and no evidence of cellulitis. MS/ Extremity: Pulses equal, no cyanosis. Neurovascular intact. Full, normal range of motion. Neuro: Awake and alert, GCS 15, oriented to person, place, time, and situation. Cranial nerves II-XII grossly intact. Motor strength 5/5 in all extremities. Sensory grossly intact. Cerebellar exam normal. Normal gait. Psych: Awake, alert, with orientation to person, place and time. Behavior, mood, and affect are within normal limits. Vital Signs: 03/04 20:46 BP 197 / 83; Pulse 60; Resp 12; Temp 97; Pulse Ox 100% ; Weight 53.52 kg; Height 5 ft. tw5 3 in. (160.02 cm); Pain 6/10; 21:22 BP 170 / 73; Pulse 58; Resp 16 S; Pulse Ox 100% on R/A; as6 21:51 Pulse 61; Resp 16; Pulse Ox 100% on R/A; tw5 23:04 BP 157 / 74; Pulse 65; Resp 12 S; Pulse Ox 100% on R/A; as6 23:44 BP 151 / 81; Pulse 66; Resp 16; Pulse Ox 96% on R/A; tw5 20:46 Body Mass Index 20.90 (53.52 kg, 160.02 cm) tw5 MDM: 23:09 Patient medically screened. kdr 03/06 04:21 Data reviewed: vital signs, nurses notes, lab test result(s), radiologic studies. kdr Counseling: I had a detailed discussion with the patient and/or guardian regarding: the historical points, exam findings, and any diagnostic results supporting the discharge/admit diagnosis, lab results, radiology results, the need for outpatient follow up. 03/04 21:11 Order name: CBC with Diff; Complete Time: 23:04 kdr 03/04 21:11 Order name: CMP; Complete Time: 23: kdr 03/04 21:11 Order name: Lipase; Complete Time: 23:04 kdr 03/04 22:04 Order name: CREATININE WHOLE BLOOD; Complete Time: 23:04 EDMS 03/04 23:10 Order name: SARS RAPID; Complete Time: 23:41 as6 03/05 03:52 Order name: CBC with Automated Diff; Complete Time: 04:10 EDMS 03/04 21:11 Order name: CT Abd/Pelvis - IV Contrast Only; Complete Time: 23:04 kdr 03/05 04:20 Order name: Basic Metabolic Panel; Complete Time: 04:28 EDMS 03/05 04:20 Order name: Phosphorus; Complete Time: 04:28 EDMS 03/05 04:20 Order name: Lipid Profile; Complete Time: 04:28 EDMS 03/05 04:20 Order name: Magnesium; Complete Time: 04:28 EDMS 03/05 04:20 Order name: Thyroid Stimulating Hormone; Complete Time: 04:28 EDMS 03/04 21:11 Order name: IV Saline Lock; Complete Time: 21:16 kdr 03/04 21:11 Order name: Labs collected and sent; Complete Time: 21:16 kdr 03/05 09:48 Order name: NPO; Complete Time: 09:48 eb Administered Medications: 03/04 21:51 Drug: Zofran (Ondansetron) 4 mg Route: IVP; Site: right antecubital; tw5 23:45 Follow up: Response: No adverse reaction as6 21:56 Drug: NS 0.9% 250 ml Route: IV; Rate: bolus; Site: right antecubital; tw5 23:46 Follow up: Response: No adverse reaction; IV Status: Completed infusion; IV Intake: as6 250ml Disposition Summary: 03/04/22 23:09 Hospitalization Ordered Hospitalization Status: Observation kdr Provider: lAe Villaseñor Condition: Fair kdr Problem: new kdr Symptoms: have improved kdr Bed/Room Type: Standard kdr Location: Telemetry/MedSurg (observation)(03/05/22 12:10) dw Room Assignment: [facility](03/05/22 12:10) dw Diagnosis - Abdominal pain, Generalized kdr - Vomiting kdr Forms: - Medication Reconciliation Form kdr - SBAR form kdr Signatures: Dispatcher [employer] EDMS Fernandez, Karime, RN RN mw Cumberland, Corrie, RN RN Domenic Solis MD MD kdr Botello, Elizabeth eb Wood, Tiffany tw5 Maria Esther Pruett PA-C PASloane sb4 Michael Parson RN as6 Corrections: (The following items were deleted from the chart) 23:49 23:09 Telemetry/MedSurg (observation) kdr : 23:09 kdr mw 03/05 12:10 03/04 23:49 [facility] ER [facility] 03/05 12:03/04 23:49 [facility]- [facility]
--- NOTE | 2022-03-04 23:10 | ER ---
Nurse's Notes [facility] Name: Leeann Cueva Age: 86 yrs Sex: Female : 1935 Arrival Date: 03/04/2022 Time: 20:46 Bed 14 Private MD: Diagnosis: Abdominal pain, Generalized;Vomiting Presentation: 03/04 20:46 Chief complaint: EMS states: "She called because her blood pressure was machine was tw5 giving her high blood pressure reading. She is also complaining of abdominal pain, nausea, and dizziness. She has a history of blockages.". Coronavirus screen: Vaccine status: Patient reports receiving the 2nd dose of the covid vaccine. unknown. Card in purse. Ebola Screen: Patient negative for fever greater than or equal to 101.5 degrees Fahrenheit, and additional compatible Ebola Virus Disease symptoms Patient denies exposure to infectious person. Patient denies travel to an Ebola-affected area in the 21 days before illness onset. Initial Sepsis Screen: Does the patient meet any 2 criteria? No. Patient's initial sepsis screen is negative. Does the patient have a suspected source of infection? No. Patient's initial sepsis screen is negative. Risk Assessment: Do you want to hurt yourself or someone else? Patient reports no desire to harm self or others. Onset of symptoms was March 04, 2022 at 03:00. 20:46 Method Of Arrival: EMS: [facility] tw5 20:46 Acuity: AALIYAH 3 tw5 Triage Assessment: 20:50 General: Appears in no apparent distress. Behavior is calm, cooperative, appropriate tw5 for age. Pain: Complains of pain in abdomen Pain currently is 6 out of 10 on a pain scale. GI: Reports "I had some relief after I used the bathroom. That was around 8 PM. Historical: - Allergies: 20:50 Sulfa (Sulfonamide Antibiotics); tw5 - Home Meds: 21:52 clopidogrel 75 mg Oral tab 1 tab once daily [Active]; hydralazine 50 mg Oral tab 1 tab tw5 3 times a day [Active]; potassium chloride 20 mEq oral TbER [Active]; isosorbide mononitrate 30 mg Oral Tb24 2 tabs once daily [Active]; losartan 50 mg Oral tab 1 tab 2 times per day [Active]; torsemide 20 mg oral tab 2 tabs once daily [Active]; Restasis 0.05 % ophthalmic (eye) dpet 1 drop every 12 hours [Active]; pravastatin 20 mg Oral tab 1 tab once daily [Active]; CoQ-10 100 mg Oral cap daily [Active]; docusate sodium 100 mg Oral cap 1 cap once daily [Active]; - PMHx: 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 It has been more than one year since last vaccine. - Social history:: Smoking status: Patient denies any tobacco usage or history of. Screenin:52 Abuse screen: Denies threats or abuse. Denies injuries from another. Nutritional tw5 screening: No deficits noted. Tuberculosis screening: No symptoms or risk factors identified. Fall Risk Secondary diagnosis (15 points). Assessment: 20:52 General: Appears in no apparent distress. Behavior is calm, cooperative, appropriate tw5 for age. Respiratory: Airway is patent Trachea midline. GI: Abd is soft in right upper quadrant, left upper quadrant and left lower quadrant. 21:50 General: Behavior is Reports "I am still feeling a little nauseous but not bad.". tw5 Neuro: No deficits noted. 23:05 Reassessment: Patient states feeling better. as6 23:44 Reassessment: Patient states feeling better. Patient states symptoms have improved. tw5 General: Reports "I dont feel nauseous right now. I am doing much better.". Vital Signs: 20:46 BP 197 / 83; Pulse 60; Resp 12; Temp 97; Pulse Ox 100% ; Weight 53.52 kg; Height 5 ft. tw5 3 in. (160.02 cm); Pain 6/10; 21:22 BP 170 / 73; Pulse 58; Resp 16 S; Pulse Ox 100% on R/A; as6 21:51 Pulse 61; Resp 16; Pulse Ox 100% on R/A; tw5 23:04 BP 157 / 74; Pulse 65; Resp 12 S; Pulse Ox 100% on R/A; as6 23:44 BP 151 / 81; Pulse 66; Resp 16; Pulse Ox 96% on R/A; tw5 20:46 Body Mass Index 20.90 (53.52 kg, 160.02 cm) tw5 ED Course: 20:46 Patient arrived in ED. tw5 20:50 Triage completed. tw5 20:50 Arm band placed on Patient placed in an exam room. tw5 20:52 Patient has correct armband on for positive identification. Placed in gown. Bed in low tw5 position. Call light in reach. Client placed on continuous cardiac and pulse oximetry monitoring. NIBP monitoring applied. Door closed. Noise minimized. Lights dimmed. Warm blanket given. Verbal reassurance given. 20:53 Domenic Gaston MD is Attending Physician. kdr 21:04 Michael Parson, RN is Primary Nurse. as6 21:15 Inserted saline lock: 20 gauge in right antecubital area, using aseptic technique. as6 Blood collected. 21:16 CBC with Diff Sent. tw5 21:16 CMP Sent. tw5 21:16 Lipase Sent. tw5 21:45 CT Abd/Pelvis - IV Contrast Only In Process Unspecified. EDMS 21:51 CMP Sent. tw5 21:51 Lipase Sent. tw5 23:09 Ale Villaseñor MD is Hospitalizing Provider. kdr 23:45 No provider procedures requiring assistance completed. Patient admitted, IV remains in as6 place. Administered Medications: 21:51 Drug: Zofran (Ondansetron) 4 mg Route: IVP; Site: right antecubital; tw5 23:45 Follow up: Response: No adverse reaction as6 21:56 Drug: NS 0.9% 250 ml Route: IV; Rate: bolus; Site: right antecubital; tw5 23:46 Follow up: Response: No adverse reaction; IV Status: Completed infusion; IV Intake: as6 250ml Medication: 20:52 VIS not applicable for this client. tw5 Intake: 23:46 IV: 250ml; Total: 250ml. as6 Outcome: 23:09 Decision to Hospitalize by Provider. kdr 23:45 Admitted to ER Hold. [facility] documentation. as6 23:45 Condition: stable 23:45 Instructed on the need for admit. 03/05 13:04 Patient left the ED. em6 Signatures: Dispatcher [employer] EDMS Domenic Gaston MD MD kdr Bettie Hernández tw5 Michael Parson, RN RN as6 Carol Sommer, RN RN em6
[2022-03-04 23:40] LABS: SARS-CoV-2 Antigen Rapid Res Negative (Negative)
--- NOTE | 2022-03-05 00:08 | P.HP ---
Certification for Inpatient Patient admitted to: Inpatient With expected LOS: >2 Midnights Patient will require the following post-hospital care: None Practitioner: I am a practitioner with admitting privileges, knowledge of patient current condition, hospital course, and medical plan of care. Services: Services provided to patient in accordance with Admission requirements found in Title 42 Section 412.3 of the Code of Federal Regulations Patient History Date of Service: 03/05/22 Primary Care Provider: David Reason for admission: SBO/Enteritis History of Present Illness: Patient is an 86 year old female with past medical history of hypertension, CAD, SBOs who presented to the ED with complaints of nausea, abdominal pain, and dizziness. CT abdomen pelvis showed "Fluid throughout large and small bowel probably an enteritis. Early/partial small bowel obstruction although possible is considered less likely." Labs without significant abnormalities. Vital signs stable. She is admitted for further management. Allergies Sulfa (Sulfonamide Antibioti Allergy (Uncoded 10/13/17 08:24) Unknown Home medications list reviewed: Yes Home Medications: Cholecalciferol (Vitamin D3) [Vitamin D3] 1 tab PO DAILY 08/17/21 Clopidogrel Bisulfate [Clopidogrel] 75 mg PO DAILY 08/17/21 Cyclosporine [Restasis] 1 drop EACH EYE BID 08/17/21 Docusate Sodium 1 tab PO DAILY 08/17/21 Isosorbide Mononitrate [Isosorbide Mononitrate ER] 1 tab PO BID 08/17/21 Krill/Om-3/Dha/Epa/Phospho/Ast [Megared [place]-3 Krill 500 mg] 500 mg PO DAILY 08/17/21 L.acidoph,Paracasei, B.lactis [Probiotic] 1 tab PO BID 08/17/21 Losartan Potassium [Cozaar] 1 tab PO BID 08/17/21 Potassium Chloride 1 tab PO DAILY 08/17/21 Pravastatin Sodium 1 tab PO DAILY 08/17/21 Torsemide [Demadex*] 1 tab PO DAILY 08/17/21 Ubidecarenone/Vit E/Vit E Mix [Co-Enzyme Q10 100 mg Softgel] 1 tab PO DAILY 08/17/21 Hydralazine HCl 50 mg PO TID #100 tablet 08/22/21 - Past Medical/Surgical History Diabetic: No -: HTN -: Glaucoma -: CAD -: Endometrial Cancer -: Left leg- reconstruction surgery sheen -: Hysterectomy Psychosocial/ Personal History: Patient is recently . - Family History Family History: Reviewed- Non-Contributory - Social History Smoking Status: Never smoker Alcohol use: No CD- Drugs: No Caffeine use: Yes Place of Residence: Home Review of Systems General: Other (Dizziness) Gastrointestinal: Nausea, Vomiting, Abdominal Pain Physical Examination - Physical Exam General: Alert, In no apparent distress HEENT: Atraumatic, PERRLA, EOMI, Sclerae nonicteric Neck: Supple, 2+ carotid pulse no bruit, No LAD, Without JVD or thyroid abnormality Respiratory: Clear to auscultation bilaterally, Normal air movement Cardiovascular: Regular rate/rhythm, Normal S1 S2 Gastrointestinal: Normal bowel sounds, No tenderness Musculoskeletal: No tenderness Integumentary: No rashes Neurological: Normal speech, Normal strength at 5/5 x4 extr, Normal tone, Normal affect - Studies Laboratory Data (last 24 hrs) 03/04/22 21:20: Sodium 139, Potassium 4.6, BUN 25 H, Creatinine 1.09, Glucose 122 H, Total Bilirubin 0.3, AST 17, ALT 18, Alkaline Phosphatase 61, Lipase 128 03/04/22 21:20: WBC 9.90, Hgb 12.7, Hct 38.5, Plt Count 293 Assessment and Plan - Problems (Diagnosis) (1) Small bowel obstruction Current Visit: Yes Status: Acute (2) CAD (coronary artery disease) Current Visit: Yes Status: Acute Qualifiers: Coronary Disease-Associated Artery/Lesion type: [place] artery [place] vs. transplanted heart: [place] heart Associated angina: without angina Qualified Code(s): I25.10 - Atherosclerotic heart disease of [place] coronary artery without angina pectoris (3) HTN (hypertension) Current Visit: Yes Status: Chronic Qualifiers: Hypertension type: primary hypertension Qualified Code(s): I10 - Essential (primary) hypertension - Plan NPO for now for bowel rest. Per chart review, SBOs in the past have relieved with bowel rest No indication for antibiotics at this time Repeat KUB in the morning Patient has not vomited. No need for NG tube Antiemetics and morphine as needed IV fluids Monitor and replete electrolytes per protocol Reconcile and continue home medications Lovenox for VTE prophylaxis Full code Discharge Plan: Home Plan to discharge in: Greater than 2 days - Advance Directives Does patient have a Living Will: Yes Does patient have a Durable POA for Healthcare: Yes - Code Status/Comfort Care Code Status Assessed: Yes (Full) Critical Care: No Time Spent Managing Pts Care (In Minutes): 50
[2022-03-05] MEDS: NA CHLORIDE 0.9% 1,000 ML IV SCH ×3 (02:13→13:01)
[2022-03-05] MEDS ORDERED: ACETAMINOPHEN 500 MG TAB PO PRN (02:13)
[2022-03-05] MEDS ORDERED: HYDRALAZINE HCL 20 MG/ML VIAL IV PRN (02:13)
[2022-03-05] MEDS ORDERED: MORPHINE 2 MG/ML SYR IV PRN (02:13)
[2022-03-05 02:59] VITALS: BMI 20.9
[2022-03-05] MEDS ORDERED: ONDANSETRON 4 MG/2 ML VIAL IV PRN (03:41)
[2022-03-05 03:49] LABS: Absolute Lymphocytes (CBC) 1.7 K/uL (0.7-4.9); Hematocrit 34.9 % (36.0-45.0); Lymphocytes % 28.4 % (15.3-44.8); MCV 92.9 fL (80-100); MPV 8.1 fL (7.6-11.3); RBC Red Blood Cell Count 3.76 M/uL (3.86-4.86)
[2022-03-05 04:13] LABS: Magnesium 2.4 mg/dL (1.8-2.4); Phosphorus 2.5 mg/dL (2.5-4.9); Potassium 4.6 mmol/L (3.5-5.1); Thyroid Stimulating Hormone 1.57 uIU/mL (0.360-3.740)
[2022-03-05] MEDS ORDERED: NA CHLORIDE 0.9% 1,000 ML ONE (06:24)
[2022-03-05] MEDS ORDERED: ENOXAPARIN 40 MG/0.4 ML SQ SCH (09:00)
[2022-03-05] MEDS ORDERED: ENOXAPARIN 40 MG/0.4 ML SQ ONE (11:55)
[2022-03-05 13:15] VITALS: O2SAT 96
[2022-03-05 17:10] VITALS: BP 148/73; TEMP 97.2
[2022-03-05] MEDS ORDERED: HOME MED 1 EA UNK (Cyclosporine [Restasis] Droperette) OPTH SCH (21:00)
[2022-03-05] MEDS ORDERED: ISOSORBIDE MONO SR 30 MG TAB PO SCH (21:00)
[2022-03-05] MEDS ORDERED: LOSARTAN POTASSIUM 50 MG TABLET PO SCH (21:00)
[2022-03-05] MEDS ORDERED: HYDRALAZINE HCL 25 MG TABLET PO SCH (21:00)
[2022-03-05] MEDS ORDERED: LACTOBACILLUS/ACIDOPHILUS TAB PO SCH (21:00)
[2022-03-06] MEDS ORDERED: DHA PO SCH (09:00)
[2022-03-06] MEDS ORDERED: ATORVASTATIN 10 MG TAB PO SCH (09:00)
[2022-03-06] MEDS ORDERED: DOCUSATE NA 100 MG CAP PO SCH (09:00)
[2022-03-06] MEDS ORDERED: HOME MED 1 EA UNK (Cholecalciferol (Vitamin D3) [Vitamin D3] 2000 UNIT Capsule) PO SCH (09:00)
[2022-03-06] MEDS ORDERED: AST PO SCH (09:00)
[2022-03-06] MEDS ORDERED: [UNRECOGNIZED DRUG - OTHER] PO SCH (09:00)
[2022-03-06] MEDS ORDERED: VIT E PO SCH (09:00)
[2022-03-06] MEDS ORDERED: KRILL PO SCH (09:00)
[2022-03-06] MEDS ORDERED: EPA PO SCH (09:00)
[2022-03-06] MEDS ORDERED: POTASSIUM CL SA 10 MEQ TAB PO SCH (09:00)
[2022-03-06] MEDS ORDERED: UBIDECARENONE PO SCH (09:00)
[2022-03-06] MEDS ORDERED: CLOPIDOGREL 75 MG TABLET PO SCH (09:00)
[2022-03-06] MEDS ORDERED: TORSEMIDE 20 MG TAB PO SCH (09:00)
[2022-03-06] MEDS ORDERED: [UNRECOGNIZED DRUG - OTHER] PO SCH (09:00)
[2022-03-06] MEDS ORDERED: PHOSPHO PO SCH (09:00)
[2022-03-06] MEDS ORDERED: VIT E MIX PO SCH (09:00)
--- NOTE | 2022-03-07 12:17 | EKG ---
Test Date: 2022-03-04 Test Time: 20:59:16 News Reel Cameraman: INDERJIT MEASUREMENT RESULTS: Intervals: Rate: 52 CT: 192 QRSD: 86 QT: 376 QTc: 349 [place]: P: 68 CT: 192 QRS: 62 T: 89 INTERPRETIVE STATEMENTS: Sinus bradycardia with sinus arrhythmia with occasional premature ventricular complexes Cannot rule out Anterior infarct, age undetermined Abnormal ECG Compared to ECG 08/20/2021 22:33:20 Ventricular premature complex(es) now present Sinus rhythm no longer present Myocardial infarct finding still present Electronically Signed On 03-07-22 12:13:06 TENTERER by Octavio Velazquez
== END 2022-03-05 18:14 | disposition home or self-care (01) ==
LOC: ER 20:44 → INTOOBSV 23:45 → ERHOLD 23:45 → 4TH 03-05 12:31
PROVIDERS: ADMIT Hospitalist; ATTEND Hospitalist
DX: K56.609 Unspecified intestinal obstruction, unspecified as to partial versus complete obstruction (principal); I25.10 Atherosclerotic heart disease of native coronary artery without angina pectoris; I10 Essential (primary) hypertension; Z20.822 Contact with and (suspected) exposure to COVID-19; Z88.2 Allergy status to sulfonamides
CPT/HCPCS: 96365; 93005; 85025 ×2; 80048; 36415; 83735; 84100; 80061; 82565; 84443; 83690; 80053; 74177; 96375; 99285; 96366; 87811; Q9967; J1650; J7030 ×3; J2405; G0378 ×2

== ENCOUNTER 2022-07-16 18:24 | Emergency (ER) | payer OTHER ==
--- OUTSIDE RECORDS SUMMARY | 2022-07-16 18:28 | XMS REPORT | Continuity of Care Document ---
:1935 Author Organization [facility] t Address [address] [place] [address] Care Team Providers Name Role Phone [phone] Primary Care Physician Unavailable Manjinder SEALS, Tani Niño Attending Clinician Froy REIMBURSEMENT LIAISONFrancoC, Zeny Navarrete Attending Clinician [phone] JENNIFER WINSTON Attending Clinician Unavailable Payers Payer Name Policy Type Policy Number Effective Date Expiration Date S ourkhoa [employer] MED[employer]ARE PPO [id number] 2019 00:00:00 Problems This patient has no [...] Comments Source Sex Assigned At [birth year] [facility] 00:00:00 00:00:00 Smoking Status Start Date Stop Date Source Tobacco smoking consumption unknown [facility] Medications Ordered Filled Start Stop Current Ordering [...] MG 00:00: nightly. Hospita tablet 00 l potassium 2016- Yes 20meq QD Take 20 Meth allyssa chloride 1-[address] (K-DUR) 20 00:00: mouth once H ospita MEQ CR 00 daily. l tablet pravastatin Yes 20mg QD Take 20 mg [facility] (PRAVACHOL) 1-[address] 20 MG 00:00: nightly. Hospita tablet 00 l isosorbide 2016- Yes 30mg QD Take 30 mg M [facility] mononitrate 1-[address] (IMDUR) 30 00:00: once Hospita MG 24 hr 00 daily. l tablet isosorbide Yes 30mg QD Take 30 mg M [facility] mononitrate 1-[address] (IMDUR) 30 00:00: once Hospita MG 24 hr 00 daily. l tablet clonIDINE 2015-05 Yes 1 TAB [facility] (CATAPRES) 2-[address] 0.1 MG 00:00: HOURS Hospita tablet 00 NEEDED FOR l SYSTOLIC >175OR [place]ENN >90 clonIDINE 2015-05 Yes 1 TAB [facility] (CATAPRES) 2-[address] 0.1 MG 00:00: HOURS Hospita tablet 00 NEEDED FOR l SYSTOLIC >175OR [place] >90 diltiazem Yes [facility] CD 5-30 st (CardIZEM 00:00: Hospita CD) 180 MG 00 l 24 hr capsule diltiazem Yes [facility] CD 5-[facility] st (CardIZEM 00:00: Hospita CD) 180 MG 00 l 24 hr capsule RESTASIS Yes PUT 1 DROP Met [facility] 0.05 % 5-[address] ophthalmic 00:00: EYES TWICE H ospita emulsion 00 A DAY l RESTASIS Yes PUT 1 DROP Met [facility] 0.05 % 5-[address] ophthalmic 00:00: EYES TWICE H ospita emulsion 00 A DAY l clopidogrel Yes 75mg QD Take 75 mg [facility] (PLAVIX) 75 4-[address] mg tablet 00:00: once Hospita 00 daily. l clopidogrel Yes 75mg QD Take 75 mg [facility] (PLAVIX) 75 4-[address] mg tablet 00:00: once Hospita 00 daily. l Immunizations Ordered Immunization Filled Immunization Date Status Commen ts Source Name Name JOAN COVID-19 MRNA 2020-06-08 Completed Meth odist VACCINATION 00:00:00 [facility] PFIZER COVID-19 MRNA 2020-06-08 Completed Meth odist VACCINATION 00:00:00 [facility] PFIZER COVID-19 MRNA 2020-05-18 Completed Meth odist VACCINATION 00:00:00 [facility] PFIZER COVID-19 MRNA 2020-05-18 Completed Meth odist VACCINATION 00:00:00 Hospital Procedures Procedure Date / Time Performed Performing Clinician Sourc e XR ABD/PELVIC EXTERNAL [facility]-08[facility]22 [facility] 2021-08-19 [facility]PELVIC EXTERNAL 2021-08-18 14:29:32 [facility] STUDY XR CHEST EXTERNAL STUDY 2021-08-17 23:36:29 [facility] XR CHEST EXTERNAL STUDY 2021-08-17 19:46:43 [facility] XR ABD/PELVIC EXTERNAL 2021-08-17 14:25:23 [facility] STUDY CT CHEST ABD PEL 2021-08-17 06:29:50 [facility] EXTERNAL STUDY XR CHEST EXTERNAL STUDY 2021-08-17 05:40:[address] [facility] [address] CHEST ABD PEL 2021-08-17 05:31:00 [facility] EXTERNAL STUDY Plan of Care Planned Activity Planned Date Details Comments Source Future Scheduled 2022-04-15 SHINGLES VACCINES (1 Met [facility] Test 09:23:36 of 2) [code = SHINGLES VACCINES (1 of 2)] Future Scheduled 2022-04-15 65+ PNEUMOCOCCAL [facility] Test 09:23:36 VACCINE (2 - PCV) [code = 65+ PNEUMOCOCCAL VACCINE (2 - PCV)] Future Scheduled 2022-04-15 COVID-19 VACCINE (4 - Me [facility] Test 09:23:36 Booster for Pfizer series) [code = COVID-19 VACCINE (4 - Booster for Pfizer series)] Future Scheduled 2022-04-15 [facility]FLU[facility]ACCINE [facility] 09:23:36 [code = INFLUENZA VACCINE] Future Scheduled 2022-03-04 HEPATITIS B VACCINES Met [facility] Test 19:51:40 (1 of 3 - 3-dose series) [code = HEPATITIS B VACCINES (1 of 3 - 3-dose series)] Future Scheduled 2022-03-04 SHINGLES VACCINES (1 Met [facility] Test 19:51:40 of 2) [code = SHINGLES VACCINES (1 of 2)] Future Scheduled 2022-03-04 65+ PNEUMOCOCCAL [facility] Test 19:51:40 VACCINE (2 - PCV) [code = 65+ PNEUMOCOCCAL VACCINE (2 - PCV)] Future Scheduled 2022-03-04 COVID-19 VACCINE (4 - Me [facility] Test 19:51:40 Booster for Pfizer series) [code = COVID-19 VACCINE (4 - Booster for Pfizer series)] Future Scheduled 2022-03-04 INFLUENZA VACCINE Method [facility] Test 19:51:40 [code = INFLUENZA VACCINE] Encounters Start End Encounter Admission Attending Care Care Encounter Source Date/Time Date/Time Type Type Clinicians Facility Department ID 2021-09[facility]10 [id number] [facility] 14:31:14 23:59:00 Encounter [place] [id number] 748 s t 3.430.2.7 Hospit a .3.236584 l .8 2021-09-10 2021-09-[facility] [id number] 21 [id number] [facility] 14:31:14 23:59:00 Encounter [place] 74435.1.1 748 s t 3.430.2.7 Hospit a .3.304442 l .8 2021-09-10 2021-09-10 [facility] [id number] 21 [id number] [facility] 14:30:27 14:30:27 Encounter [place] 46451.1.1 621 s t 3.430.2.7 Hospit a .3.054297 l .8 2021-09-10 2021-09-10 [facility] [id number] 21 [id number] [facility] 14:30:27 14:30:27 Encounter [place] 26984.1.1 621 s t 3.430.2.7 Hospit a .3.750431 l .8 2021-09-10 2021-09-10 [facility] 1.2.840.1 [id number] 21 [id number] [facility] 14:30:26 14:30:26 Encounter a[facility]lin[place] 26811.1.1 617 s t 3.430.2.7 Hospit a .3.581454 l .8 2021-09-10 2021-09-10 [facility] 1.2.840.1 [id number] 21 [id number] [facility] 14:30:26 14:30:26 Encounter [place] 63859.1.1 617 s t 3.430.2.7 Hospit a .3.311991 l .8 2021-09-10 2021-09-10 [facility] 1.2.840.1 [id number] 21 [id number] [facility] 14:22:45 14:29:00 Encounter [place] 90444.1.1 699 s t 3.430.2.7 Hospit a .3.163304 l .8 2021-09-10 2021-09-10 [facility] 1.2.840.1 [id number] 21 [id number] [facility] 14:22:45 14:29:00 Encounter [place] 98070.1.1 699 s t 3.430.2.7 Hospit a .3.404822 l .8 2021-09-10 2021-09-10 [facility] 1.2.840.1 [id number] 21 [id number] [facility] 14:22:44 14:29:00 Encounter [place] 26226.1.1 695 s t 3.430.2.7 Hospit a .3.051627 l .8 2021-09-10 2021-09-10 [facility] 1.2.840.1 [id number] 21 [id number] [facility] 14:22:44 14:29:00 Encounter [place] 45364.1.1 695 s t 3.430.2.7 Hospit a .3.803463 l .8 2021-09-10 2021-09-10 [facility] Tani 1.2.840.1 [id number] 21 [id number] [facility] 14:22:35 14:29:00 Encounter [place] 71412.1.1 677 s t 3.430.2.7 Hospit a .3.158713 l .8 2021-09-10 2021-09-10 [facility], Tani 1.2.840.1 [id number] 21 [id number] [facility] 14:22:35 14:29:00 Encounter [place] 56960.1.1 677 s t 3.430.2.7 Hospit a .3.075164 l .8 2021-09-10 2021-09-10 [facility], Tani 1.2.840.1 [id number] 21 [id number] [facility] 14:22:34 14:29:00 Encounter [place] 34718.1.1 675 s t 3.430.2.7 Hospit a .3.244366 l .8 2021-09-10 2021-09-10 [facility], Tani 1.2.840.1 [id number] 21 [id number] [facility] 14:22:34 14:29:00 Encounter [place] 15027.1.1 675 s t 3.430.2.7 Hospit a .3.493710 l .8 2021-09-10 2021-09-10 [facility], Tani 1.2.840.1 [id number] 21 [id number] [facility] 14:22:25 14:29:00 Encounter [place] 60144.1.1 656 s t 3.430.2.7 Hospit a .3.498780 l .8 2021-09-10 2021-09-10 [facility] Tani 1.2.840.1 [id number] 21 [id number] [facility] 14:22:25 14:29:00 Encounter [place] 18787.1.1 656 s t 3.430.2.7 Hospit a .3.881997 l .8 2021-09-10 2021-09-10 [facility] Tani 1.2.840.1 [id number] 21 [id number] [facility] 14:21:04 14:21:04 Encounter [place] 04713.1.1 514 s t 3.430.2.7 Hospit a .3.042128 l .8 2021-09-10 2021-09-10 [facility] Tani Dunbar 1.2.840.1 [id number] 21 [id number] [facility] 14:21:04 14:21:04 Encounter [place] 76245.1.1 514 s t 3.430.2.7 Hospit a .3.585784 l .8 2021-09-10 2021-09-10 Orders Tani Dunbar 1.2.840.1 [id number] [facility] 00:00:00 00:00:00 Only [place] [address] 3.430.2.7 Hospit a .3.551909 l .8 2021-09-10 2021-09-10 Orders Tani Dunbar 1.2.840.1 [id number] [facility] 00:00:00 00:00:00 Only [place] [address] 3.430.2.7 Hospit a .3.691772 l .8 2021-08-27 2021-08-27 [facility] [place] 1.2.840.1 [id number] [facility] 00:00:00 00:00:00 ion my, [address]49.1.[address] Zeny 3.430.2.7 Hospi ta Navarrete .3.557258 l .8 2021-08-27 2021-08-27 [facility] [place] 1.2.840.1 [id number] [facility] 00:00:00 00:00:00 ion my, [address]236.1.[address] Zeny 3.430.2.7 Hospi ta Navarrete .3.102132 l .8 2020-06-08 2020-06-08 Outpatient [facility] [id number] [place] 00:00:00 00:00:[address] 2020-05-18 2020-05-18 Outpatient [facility] [id number] [place] 00:00:00 00:00:[address] 2020-04-01 2020-04-01 Outpatient DENNIS WINSTON [facility] [id number] 10:55:49 12:11:19 JENNIFER duarte 2020-02-05 2020-02-05 Outpatient DENNIS WINSTON [facility] [id number] 00:00:00 00:00:00 JENNIFER duarte 2019-10-23 2019-10-23 Outpatient DENNIS WINSTON [facility] [id number] 13:38:08 13:38:40 JENNIFER duarte Results This patient has no known results.
[2022-07-16] MEDS ORDERED: dexAMETHasone 10 MG/ML VIAL ONE (18:56)
[2022-07-16] MEDS ORDERED: TRAMADOL HCL 50 MG TAB ONE (18:56)
[2022-07-16] MEDS ORDERED: KETOROLAC 30 MG/ML INJ ONE (20:05)
[2022-07-16] MEDS ORDERED: DIAZEPAM 2 MG TABLET ONE (20:05)
--- NOTE | 2022-07-16 20:19 | EDPHYS ---
Physician Documentation [facility] Name: Leeann Cueva Age: 87 yrs Sex: Female : 1935 Arrival Date: 07/16/2022 Time: 18:39 Bed 14 Private MD: ED Physician Hugo Santiago HPI: 07/16 19:04 This 87 yrs old Female presents to ER via EMS with complaints of Neck Pain, <24hrs Old. kb 19:04 The patient or guardian complains of decreased range of motion, pain, tenderness. The kb symptoms are located on the right posterior aspect of neck. Onset: The symptoms/episode began/occurred last night. Context: The problem was sustained at home, The neck injury/problem resulted from from unknown cause. Associated signs and symptoms: Pertinent positives: This patient does not have any pertinent positive signs or symptoms associated with neck pain. Pertinent negatives: fever, headache, bladder incontinence, bowel incontinence, nausea, numbness, tingling, vomiting, weakness, The patient denies any alcohol use. The patient is not apparently intoxicated. No neurological symptoms were experienced by the patient prior to arrival in the emergency department. The pain radiates to the right arm. Modifying factors: The symptoms are alleviated by nothing. the symptoms are aggravated by movement, pressure. Severity of symptoms: At their worst the symptoms were moderate, in the emergency department the symptoms are unchanged. The patient has not experienced similar symptoms in the past. The patient has not recently seen a physician. Historical: - Allergies: 18:42 Sulfa (Sulfonamide Antibiotics); eh3 - Home Meds: 18:42 clopidogrel 75 mg Oral tab 1 tab once daily [Active]; CoQ-10 100 mg Oral cap daily eh3 [Active]; docusate sodium 100 mg Oral cap 1 cap once daily [Active]; hydralazine 50 mg Oral tab 1 tab 3 TIMES A DAY [Active]; isosorbide mononitrate 30 mg Oral Tb24 2 tabs once daily [Active]; losartan 50 mg Oral tab 1 tab 2 times per day [Active]; potassium chloride 20 mEq Oral TbER [Active]; pravastatin 20 mg Oral tab 1 tab once daily [Active]; - PMHx: 18:42 angle closure glaucoma; CAD; endometrium cancer; Hypertension; melanoma; eh3 - PSHx: 18:42 hysterectomy; melanoma removal; pearson bone reconstruction; eh3 - Immunization history:: Adult Immunizations up to date. - Social history:: Smoking status: Patient denies any tobacco usage or history of. Patient/guardian denies using alcohol. ROS: 18:57 Constitutional: Negative for fever, chills, and weight loss. kb 18:57 Neck: Positive for pain with movement, tenderness. 18:57 All other systems are negative. Exam: 18:57 Constitutional: This is a well developed, well nourished patient who is awake, alert, kb and in no acute distress. Head/Face: Normocephalic, atraumatic. ENT: Moist Mucous membranes Cardiovascular: Regular rate and rhythm with a normal S1 and S2. No gallops, murmurs, or rubs. No pulse deficits. Respiratory: Respirations even and unlabored. No increased work of breathing. Talking in full sentences Abdomen/GI: Soft, non-tender. No distention Back: No spinal tenderness. No costovertebral tenderness. Full range of motion. Skin: Warm, dry with normal turgor. Normal color. MS/ Extremity: Pulses equal, no cyanosis. Neurovascular intact. Full, normal range of motion. Neuro: Awake and alert, GCS 15, oriented to person, place, time, and situation. Moves all extremities. 18:57 Neck: External neck: tenderness, that is mild, that is moderate, of the right posterior aspect of neck, C-spine: appears grossly normal, no vertebral tenderness, no crepitus, ROM/movement: pain, that is moderate, with any movement, limited range of motion, that is mild, in any direction, pain. Vital Signs: 18:40 BP 205 / 88; Pulse 55; Resp 18; Temp 98.5(O); Pulse Ox 100% on R/A; Weight 50.8 kg; eh3 Height 5 ft. 3 in. ; Pain 9/10; 18:40 Body Mass Index 19.84 (50.80 kg, 160.02 cm) eh3 18:40 Pain Scale: Adult eh3 MDM: 18:42 Patient medically screened. kb 19:03 Differential diagnosis: Cervical Disc Herniation Cervical Raiculopathy Cervical kb Spondylosis cervical strain. Data reviewed: vital signs, nurses notes. Test considered but Not performed: X-ray: c-spine x-ray considered, but pt has no bony tenderness. Historians other than the Patient: EMS: [facility]. Counseling: I had a detailed discussion with the patient and/or guardian regarding: the historical points, exam findings, and any diagnostic results supporting the discharge/admit diagnosis, the need for outpatient follow up, a family practitioner, to return to the emergency department if symptoms worsen or persist or if there are any questions or concerns that arise at home. 19:26 Transition of care: After a detail discussion of the patient's case, care is kb transferred to Hugo Santiago DO. Administered Medications: 18:50 Drug: Dexamethasone IM 10 mg Route: IM; Site: left deltoid; eh3 18:55 Drug: traMADol PO 50 mg Route: PO; eh3 20:07 Drug: Ketorolac IM 10 mg Route: IM; Site: right deltoid; eh3 20:07 Drug: Diazepam PO 2 mg Route: PO; eh3 Disposition Summary: 07/16/22 20:19 Discharge Ordered Location: Home ms3 Condition: Stable ms3 Diagnosis - Right sided neck pain ms3 - Radiculopathy, cervical region ms3 Followup: ms3 - With: Private Physician - When: 2 - 3 days - Reason: Recheck today's complaints Forms: - Medication Reconciliation Form ms3 - Thank You Letter ms3 - Antibiotic Education ms3 - Prescription Opioid Use ms3 Signatures: Teri Campuzano FNP-C FNP-Hugo Ugarte DO DO ms3 Briseida Diego RN RN eh3 Corrections: (The following items were deleted from the chart) 19:03 18:57 Constitutional: This is a well developed, well nourished patient who is awake, kb alert, and in no acute distress. Head/Face: Normocephalic, atraumatic. ENT: Moist Mucous membranes Cardiovascular: Regular rate and rhythm with a normal S1 and S2. No gallops, murmurs, or rubs. No pulse deficits. Respiratory: Respirations even and unlabored. No increased work of breathing. Talking in full sentences Abdomen/GI: Soft, non-tender. No distention Back: No spinal tenderness. No costovertebral tenderness. Full range of motion. Skin: Warm, dry with normal turgor. Normal color. MS/ Extremity: Pulses equal, no cyanosis. Neurovascular intact. Full, normal range of motion. Neuro: Awake and alert, GCS 15, oriented to person, place, time, and situation. Moves all extremities. Normal gait. kb 19:03 18:57 Neck: External neck: tenderness, that is mild, that is moderate, of the right kb posterior aspect of neck, C-spine: appears grossly normal, no vertebral tenderness, no crepitus, ROM/movement: pain, that is moderate, with any movement, limited range of motion, that is mild, in any direction, pain. kb
--- NOTE | 2022-07-16 20:19 | ER ---
Nurse's Notes [facility] Name: Leeann Cueva Age: 87 yrs Sex: Female : 1935 Arrival Date: 07/16/2022 Time: 18:39 Bed 14 Private MD: Diagnosis: Right sided neck pain;Radiculopathy, cervical region Presentation: 07/16 18:40 Chief complaint: EMS states: neck pain radiating to right flank and right leg started eh3 last night and worsened today. Pt took 2 aspirin 4 hours ago and 2 tylenol this morning. Coronavirus screen: Vaccine status: Patient reports receiving the 2nd dose of the covid vaccine. Ebola Screen: No symptoms or risks identified at this time. Acute neurological deficit: none identified. Initial Sepsis Screen: Does the patient meet any 2 criteria? No. Patient's initial sepsis screen is negative. Does the patient have a suspected source of infection? No. Patient's initial sepsis screen is negative. Risk Assessment: Do you want to hurt yourself or someone else? Patient reports no desire to harm self or others. Onset of symptoms was July 17, 2022. 18:40 Method Of Arrival: EMS: [facility] 18:40 Acuity: AALIYAH 3 eh3 Triage Assessment: 18:42 General: Appears in no apparent distress. uncomfortable, Behavior is calm, cooperative, eh3 appropriate for age. Pain: Complains of pain in neck Pain radiates to right leg and right flank. EENT: No signs and/or symptoms were reported regarding the EENT system. Neuro: Level of Consciousness is awake, alert, obeys commands, Oriented to person, place, situation. Cardiovascular: Capillary refill < 3 seconds Patient's skin is warm and dry. Respiratory: Airway is patent Respiratory effort is even, unlabored, Respiratory pattern is regular, symmetrical. GI: Abdomen is flat, non-distended. : No signs and/or symptoms were reported regarding the genitourinary system. Derm: Skin is pink, warm \T\ dry. Musculoskeletal: Circulation, motion, and sensation intact. Historical: - Allergies: 18:42 Sulfa (Sulfonamide Antibiotics); eh3 - Home Meds: 18:42 clopidogrel 75 mg Oral tab 1 tab once daily [Active]; CoQ-10 100 mg Oral cap daily eh3 [Active]; docusate sodium 100 mg Oral cap 1 cap once daily [Active]; hydralazine 50 mg Oral tab 1 tab 3 TIMES A DAY [Active]; isosorbide mononitrate 30 mg Oral Tb24 2 tabs once daily [Active]; losartan 50 mg Oral tab 1 tab 2 times per day [Active]; potassium chloride 20 mEq Oral TbER [Active]; pravastatin 20 mg Oral tab 1 tab once daily [Active]; - PMHx: 18:42 angle closure glaucoma; CAD; endometrium cancer; Hypertension; melanoma; eh3 - PSHx: 18:42 hysterectomy; melanoma removal; pearson bone reconstruction; eh3 - Immunization history:: Adult Immunizations up to date. - Social history:: Smoking status: Patient denies any tobacco usage or history of. Patient/guardian denies using alcohol. Screenin:45 [facility] ED Fall Risk Assessment (Adult) Score/Fall Risk Level 0 - 2 = Low Risk. Abuse eh3 screen: Denies threats or abuse. Denies injuries from another. Nutritional screening: No deficits noted. Tuberculosis screening: No symptoms or risk factors identified. Assessment: 18:45 Reassessment: No changes from previously documented assessment. See triage assessment. eh3 Neuro: Level of Consciousness is awake, alert, obeys commands, Oriented to person, place, situation. Vital Signs: 18:40 BP 205 / 88; Pulse 55; Resp 18; Temp 98.5(O); Pulse Ox 100% on R/A; Weight 50.8 kg; eh3 Height 5 ft. 3 in. ; Pain 9/10; 18:40 Body Mass Index 19.84 (50.80 kg, 160.02 cm) eh3 18:40 Pain Scale: Adult [facility] ED Course: 18:39 Patient arrived in ED. 3 18:42 Triage completed. eh3 18:42 Teri Campuzano [facility]-C [facility]. kb 18:42 Shayne Ayala MD is Attending Physician. kb 18:42 Arm band placed on. eh3 18:45 Patient has correct armband on for positive identification. Bed in low position. Call 3 light in reach. Side rails up X2. Adult w/ patient. Client placed on continuous cardiac and pulse oximetry monitoring. NIBP monitoring applied. Door closed. Noise minimized. 19:02 Briseida Diego, RN is Primary Nurse. eh3 19:26 Hugo Santiago DO is Attending Physician. kb Administered Medications: 18:50 Drug: Dexamethasone IM 10 mg Route: IM; Site: left deltoid; eh3 18:55 Drug: traMADol PO 50 mg Route: PO; eh3 20:07 Drug: Ketorolac IM 10 mg Route: IM; Site: right deltoid; eh3 20:07 Drug: Diazepam PO 2 mg Route: PO; eh3 Outcome: 20:19 Discharge ordered by MD. ms3 Signatures: Teri Campuzano, RAMON-C SECY-Hugo Ugarte DO DO ms3 Briseida Diego RN RN eh3
[2022-07-16 21:42] VITALS: TEMP 98.5
[2022-07-16 21:49] VITALS: BP 165/88; O2SAT 96
== END 2022-07-16 20:36 | disposition home or self-care (01) ==
LOC: ER 18:24
DX: M54.12 Radiculopathy, cervical region (principal); I10 Essential (primary) hypertension; Z88.2 Allergy status to sulfonamides
CPT/HCPCS: 96372; 99283; J1100

== ENCOUNTER 2023-04-13 17:29 | Emergency (ER) | payer OTHER ==
--- NOTE | 2023-04-13 18:29 | RAD REPORT ---
EXAM DESCRIPTION: Roberta Single View04/13/2023 5:59 pm CLINICAL HISTORY: Cough COMPARISON: 2021 FINDINGS: The lungs appear clear of acute infiltrate. The heart is mildly enlarged IMPRESSION: No acute abnormalities displayed
[2023-04-13 18:37] LABS: Hematocrit 38.8 % (36.0-45.0); Lymphocytes % 49.5 % (15.3-44.8); MCV 95.2 fL (80-100); MPV 8.2 fL (7.6-11.3); Platelets 278 thou/uL (152-406); RBC Red Blood Cell Count 4.08 M/uL (3.86-4.86)
[2023-04-13 18:44] LABS: Protime INR 0.96
[2023-04-13 18:56] LABS: ALT/SGPT 18 U/L (13-56); AST/SGOT 19 U/L (15-37); Albumin 3.1 g/dL (3.4-5.0); Alkaline Phosphatase 59 U/L (45-117); BUN Blood Urea Nitrogen 30 mg/dL (7-18); Bicarbonate 25 mEq/L (21-32); Bilirubin Total 0.3 mg/dL (0.2-1.0); Glomerular Filtration Rate 37 ml/min (=/>90); Glucose Level 94 mg/dL (74-106); Lipase 57 U/L (13-75); Magnesium 2.4 mg/dL (1.6-2.4); NT PRO-BNP 1286 pg/mL (<450); Potassium 4.7 mEq/L (3.5-5.1); Protein, Total 7.4 g/dL (6.4-8.2); Sodium Level 140 mEq/L (136-145); Troponin High Sensitivity 18.5 pg/mL (<58.9)
[2023-04-13 19:05] LABS: Bilirubin Direct < 0.1 mg/dL (0-0.2); Bilirubin Indirect, Calculated ND mg/dL (0.2-0.8)
--- NOTE | 2023-04-13 19:36 | EDPHYS ---
Physician Documentation [facility] Name: Leeann Cueva Age: 88 yrs Sex: Female : 1935 Arrival Date: 04/13/2023 Time: 17:29 Bed DX4 Private MD: ED Physician Guero Castro HPI: 04/13 19:29 This 88 yrs old Female presents to ER via EMS with complaints of General inez Weakness. 19:29 accidentally hit medical alarm. Onset: The symptoms/episode began/occurred just prior inez to arrival. 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 The patient has not experienced similar symptoms in the past. Historical: - Allergies: 18:13 Sulfa (Sulfonamide Antibiotics); nj1 - PMHx: 18:13 angle closure glaucoma; CAD; endometrium cancer; Hypertension; melanoma; nj1 - PSHx: 18:13 hysterectomy; melanoma removal; pearson bone reconstruction; nj1 - Immunization history:: Client reports receiving the 2nd dose of the Covid vaccine. - Social history:: Smoking status: Patient denies any tobacco usage or history of. ROS: 19:32 Constitutional: Negative for fever, chills, and weight loss, Eyes: Negative for injury, inze pain, redness, and discharge, ENT: Negative for injury, pain, and discharge, Neck: Negative for injury, pain, and swelling, Cardiovascular: Negative for chest pain, palpitations, and edema, Respiratory: Negative for shortness of breath, cough, wheezing, and pleuritic chest pain, Abdomen/GI: Negative for abdominal pain, nausea, vomiting, diarrhea, and constipation, Back: Negative for injury and pain, : Negative for injury, bleeding, discharge, and swelling, MS/Extremity: Negative for injury and deformity, Skin: Negative for injury, rash, and discoloration, Neuro: Negative for headache, weakness, numbness, tingling, and seizure, Psych: Negative for depression, anxiety, suicide ideation, homicidal ideation, and hallucinations, Allergy/Immunology: Negative for hives, rash, and allergies, Endocrine: Negative for neck swelling, polydipsia, polyuria, polyphagia, and marked weight changes, Hematologic/Lymphatic: Negative for swollen nodes, abnormal bleeding, and unusual bruising, Exam: 19:32 Constitutional: This is a well developed, well nourished patient who is awake, alert, inez and in no acute distress. Head/Face: Normocephalic, atraumatic. Eyes: Pupils equal round and reactive to light, extra-ocular motions intact. Lids and lashes normal. Conjunctiva and sclera are non-icteric and not injected. Cornea within normal limits. Periorbital areas with no swelling, redness, or edema. ENT: Nares patent. No nasal discharge, no septal abnormalities noted. Tympanic membranes are normal and external auditory canals are clear. Oropharynx with no redness, swelling, or masses, exudates, or evidence of obstruction, uvula midline. Mucous membranes moist. Neck: Trachea midline, no thyromegaly or masses palpated, and no cervical lymphadenopathy. Supple, full range of motion without nuchal rigidity, or vertebral point tenderness. No Meningismus. Chest/axilla: Normal chest wall appearance and motion. Nontender with no deformity. No lesions are appreciated. Cardiovascular: Regular rate and rhythm with a normal S1 and S2. No gallops, murmurs, or rubs. Normal PMI, no JVD. No pulse deficits. Respiratory: Lungs have equal breath sounds bilaterally, clear to auscultation and percussion. No rales, rhonchi or wheezes noted. No increased work of breathing, no retractions or nasal flaring. Abdomen/GI: Soft, non-tender, with normal bowel sounds. No distension or tympany. No guarding or rebound. No evidence of tenderness throughout. Back: No spinal tenderness. No costovertebral tenderness. Full range of motion. Skin: Warm, dry with normal turgor. Normal color with no rashes, no lesions, and no evidence of cellulitis. MS/ Extremity: Pulses equal, no cyanosis. Neurovascular intact. Full, normal range of motion. Neuro: Awake and alert, GCS 15, oriented to person, place, time, and situation. Cranial nerves II-XII grossly intact. Motor strength 5/5 in all extremities. Sensory grossly intact. Cerebellar exam normal. Normal gait. Psych: Awake, alert, with orientation to person, place and time. Behavior, mood, and affect are within normal limits. Vital Signs: 18:14 BP 152 / 60; Pulse 65; Resp 16; Temp 97.9(O); Pulse Ox 98% ; Weight 50.8 kg; Height 5 nj1 ft. 3 in. ; Pain 0/10; 18:14 Body Mass Index 19.84 (50.80 kg, 160.02 cm) nj1 18:14 Pain Scale: Adult nj1 MDM: 17:33 Patient medically screened. inez 04/13 17:34 Order name: Basic Metabolic Panel; Complete Time: 19:33 inez 04/13 17:34 Order name: CBC with Diff; Complete Time: 19:33 inez 04/13 17:34 Order name: LFT's; Complete Time: 19:33 inez 04/13 17:34 Order name: Magnesium; Complete Time: 19:33 inez 04/13 17:34 Order name: NT PRO-BNP; Complete Time: 19:33 inez 04/13 17:34 Order name: PT-INR; Complete Time: 19:33 inez 04/13 17:34 Order name: Troponin HS; Complete Time: 19:33 inez 04/13 17:34 Order name: Lipase; Complete Time: 19:33 inez 04/13 17:34 Order name: Urinalysis w/ reflexes inez 04/13 17:34 Order name: Lactate w/ 2H reflex if indic.; Complete Time: 19:33 inez 04/13 17:34 Order name: XRAY Chest (1 view); Complete Time: 19:33 inez 04/13 17:34 Order name: EKG; Complete Time: 17:35 inez 04/13 17:34 Order name: EKG - Nurse/Tech; Complete Time: 19:50 inez 04/13 17:34 Order name: Labs collected and sent; Complete Time: 19:50 inez 04/13 17:34 Order name: O2 Per Protocol; Complete Time: 19:50 inez 04/13 17:34 Order name: O2 Sat Monitoring; Complete Time: 19:50 inez Administered Medications: 19:33 CANCELLED (Duplicate Order): ns 0.9% 500 ml IV at bolus once inez 19:33 CANCELLED (Duplicate Order): ns 0.9% 1000 ml IV at 125 ml/hr continuous inez Disposition Summary: 04/13/23 19:35 Discharge Ordered Notes: Location: Home inez Problem: new inez Symptoms: have improved inez Condition: Stable inez Diagnosis - Essential (primary) hypertension inez - Unspecified kidney failure - insufficency inez Followup: inez - With: Private Physician - When: 2 - 3 days - Reason: Recheck today's complaints, Continuance of care, Re-evaluation by your physician Discharge Instructions: - Discharge Summary Sheet inez - Hypertension, Adult inez - Hypertension, Adult, [id number] inez - How to Take Your Blood Pressure, [id number] inez - Chronic Kidney Disease, Adult, [id number] inez - Managing Your Hypertension inez Forms: - Medication Reconciliation Form inez - Thank You Letter inez - Antibiotic Education inez - Prescription Opioid Use inez - Patient Portal Instructions inez - Leadership Thank You Letter inez Signatures: Dispatcher [employer] Guero Cabello MD MD cha Calderon, Audri, RN RN aa5 Ethel Herman RN RN nj1 Corrections: (The following items were deleted from the chart) 19:33 17:34 NS 0.9% IV 500 ml IV at bolus once ordered. [facility] 19:33 17:34 NS 0.9% IV 1000 ml IV at 125 ml/hr continuous ordered. [facility] 19:33 18:49 Labs - recollect needed ordered. aaDiego [facility] 19:48 17:34 Cardiac monitoring ordered. [facility] jb4 19:50 17:34 IV Saline Lock ordered. inez jb4
--- NOTE | 2023-04-13 19:36 | ER ---
Nurse's Notes [facility] Name: Leeann Cueva Age: 88 yrs Sex: Female : 1935 Arrival Date: 04/13/2023 Time: 17:29 Bed DX4 Private MD: Diagnosis: Essential (primary) hypertension;Unspecified kidney failure-insufficency Presentation: 04/13 17:38 Chief complaint: EMS states: Accidental activation, once at residence, pt stated she nj1 has felt weak all day today. 17:38 Method Of Arrival: EMS: [facility] 18:12 Coronavirus screen: Vaccine status: Patient reports receiving the 2nd dose of the covid nj1 vaccine. Ebola Screen: Patient denies travel to an Ebola-affected area in the 21 days before illness onset. Risk Assessment: Do you want to hurt yourself or someone else? Patient reports no desire to harm self or others. Onset of symptoms was April 13, 2023. 18:12 Acuity: AALIYAH 3 [facility] 18:14 Initial Sepsis Screen: Does the patient meet any 2 criteria? No. Patient's initial nj1 sepsis screen is negative. Does the patient have a suspected source of infection? No. Patient's initial sepsis screen is negative. Historical: - Allergies: 18:13 Sulfa (Sulfonamide Antibiotics); nj1 - PMHx: 18:13 angle closure glaucoma; CAD; endometrium cancer; Hypertension; melanoma; nj1 - PSHx: 18:13 hysterectomy; melanoma removal; pearson bone reconstruction; nj1 - Immunization history:: Client reports receiving the 2nd dose of the Covid vaccine. - Social history:: Smoking status: Patient denies any tobacco usage or history of. Screenin:48 [facility] ED Fall Risk Assessment (Adult) History of falling in the last 3 months, jb4 including since admission No falls in past 3 months (0 pts) Confusion or Disorientation No (0 pts). Abuse screen: Denies threats or abuse. Nutritional screening: No deficits noted. Tuberculosis screening: No symptoms or risk factors identified. Assessment: 19:48 General: Appears in no apparent distress. comfortable, Behavior is calm, cooperative, jb4 appropriate for age. Pain: Denies pain. Neuro: Level of Consciousness is awake, alert, obeys commands, Oriented to person, place, time, situation. Cardiovascular: Patient's skin is warm and dry. Respiratory: Airway is patent Respiratory effort is even, unlabored, Respiratory pattern is regular, symmetrical. GI: No signs and/or symptoms were reported involving the gastrointestinal system. : No signs and/or symptoms were reported regarding the genitourinary system. EENT: No signs and/or symptoms were reported regarding the EENT system. Derm: Skin is intact, Skin is pink, warm \T\ dry. Musculoskeletal: Circulation, motion, and sensation intact. Range of motion: intact in all extremities. Vital Signs: 18:14 BP 152 / 60; Pulse 65; Resp 16; Temp 97.9(O); Pulse Ox 98% ; Weight 50.8 kg; Height 5 nj1 ft. 3 in. ; Pain 0/10; 18:14 Body Mass Index 19.84 (50.80 kg, 160.02 cm) [facility] 18:14 Pain Scale: Adult [facility] ED Course: 17:31 Patient arrived in ED. im 17:33 Guero Castro MD is Attending Physician. [facility] 18:01 XRAY Chest (1 view) In Process Unspecified. EDNH 18:12 Triage completed. nj1 18:13 Arm band placed on right wrist. nj1 19:48 Patient has correct armband on for positive identification. Bed in low position. Call jb4 light in reach. Side rails up X 1. 19:48 No provider procedures requiring assistance completed. Patient did not have IV access jb4 during this emergency room visit. Administered Medications: 19:33 CANCELLED (Duplicate Order): ns 0.9% 500 ml IV at bolus once inez 19:33 CANCELLED (Duplicate Order): ns 0.9% 1000 ml IV at 125 ml/hr continuous inez Outcome: 19:35 Discharge ordered by . [facility] 19:48 Discharged to home ambulatory, jb4 19:48 Condition: stable 19:48 Discharge instructions given to patient, Instructed on discharge instructions, follow up and referral plans. Demonstrated understanding of instructions, follow-up care, 19:50 Patient left the ED. jb4 Signatures: Dispatcher [employer] EDNH Guero Castro MD MD cha Bryson, James RN RN jb4 Ethel Herman RN RN nj1 Camille Medina
[2023-04-13 19:42] LABS: Specific Gravity 1.007 (1.005-1.030); Urine Bilirubin NEGATIVE (Negative); Urine Blood Negative (Negative); Urine Clarity Clear (Clear); Urine Color Light-Yellow (Yellow); Urine Glucose NEGATIVE (Negative); Urine Protein NEGATIVE (Negative); Urine Urobilinogen Normal (Normal)
[2023-04-13 20:05] VITALS: BP 152/60; TEMP 97.9; O2SAT 98
== END 2023-04-13 19:50 | disposition home or self-care (01) ==
LOC: ER 17:29
DX: I10 Essential (primary) hypertension (principal); N19 Unspecified kidney failure; R53.1 Weakness; I25.10 Atherosclerotic heart disease of native coronary artery without angina pectoris; Z88.2 Allergy status to sulfonamides
CPT/HCPCS: 36415; 71045; 80048; 80076; 81003; 83605; 83690; 83735; 83880; 84484; 85025; 85610; 93005; 99283

== ENCOUNTER → 2023-04-30 | Emergency (ER) | payer OTHER ==
--- NOTE | 2023-04-30 11:58 | RAD REPORT ---
EXAM DESCRIPTION: CT - Head Brain Wo Cont - 04/30/2023 11:52 am CLINICAL HISTORY: head injury, on plavix Trauma, head injury COMPARISON: <Comparisons> TECHNIQUE: All CT scans are performed using dose optimization technique as appropriate and may inclu de automated exposure control or mA/KV adjustment according to patient size. FINDINGS: No intracranial hemorrhage, hydrocephalus or extra-axial fluid collection.Mild generalized brain atrophy is present with moderate periventricular and deep white matter chronic microvascular i schemic changes.No areas of brain edema or evidence of midline shift. The paranasal sinuses and mastoids are clear. The calvarium is intact. IMPRESSION: No acute intracranial abnormality.
--- NOTE | 2023-04-30 12:08 | EDPHYS ---
Physician Documentation [facility] Name: Leeann Cueva Age: 88 yrs Sex: Female : 1935 Arrival Date: 04/30/2023 Time: 11:17 Bed 20 Private MD: ED Physician Tadeo Wiley HPI: 04/30 11:24 This 88 yrs old Female presents to ER via Unassigned with complaints of Fall Injury. rn 11:24 Details of fall: The patient fell from an upright position, while walking. Onset: The rn symptoms/episode began/occurred just prior to arrival. Associated injuries: The patient sustained injury to the head. Severity of symptoms: At their worst the symptoms were mild, in the emergency department the symptoms have improved. The patient has not experienced similar symptoms in the past. The patient has not recently seen a physician. Pt reports walking at [employer], tripped over chair and fell, hit head on carpet, no LOC, takes plavix, remembers all events, ambulatory after fall, no other injury. Reports head already feels better. . Historical: - Allergies: 11:27 Sulfa (Sulfonamide Antibiotics); kc6 - PMHx: 11:27 angle closure glaucoma; CAD; endometrium cancer; Hypertension; melanoma; kc6 - PSHx: 11:27 hysterectomy; melanoma removal; pearson bone reconstruction; kc6 - Immunization history: Last tetanus immunization: - up to date. - Social history:: Smoking status: Patient denies any tobacco usage or history of. - Family history:: not pertinent. - Hospitalizations: : No recent hospitalization is reported. ROS: 11:24 Constitutional: Negative for fever, chills, and weight loss, Neck: Negative for injury, rn pain, and swelling, Cardiovascular: Negative for chest pain, palpitations, and edema, Respiratory: Negative for shortness of breath, cough, wheezing, and pleuritic chest pain, Abdomen/GI: Negative for abdominal pain, nausea, vomiting, diarrhea, and constipation, Back: Negative for injury and pain, MS/Extremity: Negative for injury and deformity, Skin: Negative for injury, rash, and discoloration, Neuro: Negative for headache, weakness, numbness, tingling, and seizure, Exam: 11:24 Constitutional: This is a well developed, well nourished patient who is awake, alert, rn and in no acute distress. Head/Face: small contusion right islam, no depression or open wound. Cardiovascular: Regular rate and rhythm. No pulse deficits. Respiratory: No increased work of breathing, no retractions or nasal flaring. Abdomen/GI: Soft, non-tender Skin: Warm, dry MS/ Extremity: Pulses equal, no cyanosis. Neurovascular intact. Full, normal range of motion. Equal circumference. Neuro: Awake and alert, GCS 15, oriented to person, place, time, and situation. Cranial nerves II-XII grossly intact. Motor strength 5/5 in all extremities. Sensory grossly intact. Vital Signs: 11:24 BP 229 / 92; Pulse 65; Resp 16 S; Temp 98.4(O); Pulse Ox 100% on R/A; Weight 68.04 kg kc6 (R); Height 5 ft. 3 in. (R); Pain 0/10; 11:38 BP 211 / 86; kc6 12:08 BP 199 / 82; Pulse 70; Resp 18 S; Pulse Ox 100% on R/A; kc6 11:24 Body Mass Index 26.57 (68.04 kg, 160.02 cm) kc6 11:24 Pain Scale: Adult kc6 Adriana Coma Score: 11:24 Eye Response: spontaneous(4). Motor Response: obeys commands(6). Verbal Response: kc6 oriented(5). Total: 15. Trauma Score (Adult): 11:24 Eye Response: spontaneous(1); Verbal Response: oriented(1); Motor Response: obeys kc6 commands(2); Systolic BP: > 89 mm Hg(4); Respiratory Rate: 10 to 29 per min(4); Dariana Score: 15; Trauma Score: 12 MDM: 11:19 Patient medically screened. rn 12:06 Differential diagnosis: abrasion, closed head injury, contusion. Data reviewed: vital rn signs, nurses notes, radiologic studies, CT scan, and as a result, I will discharge patient. Counseling: I had a detailed discussion with the patient and/or guardian regarding the historical points, exam findings, and any diagnostic results supporting the discharge/admit diagnosis, radiology results, the need for outpatient follow up, to return to the emergency department if symptoms worsen or persist or if there are any questions or concerns that arise at home. Special discussion: Based on the patient's history, exam and DX evaluation, there is no indication for emergent intervention or inpatient TX. It is understood by the patient/guardian that if the SXs persist or worsen they need to return immediately for re-evaluation. I discussed with the patient/guardian in detail that at this point there is no indication for admission to the hospital. It is understood, however, that if the symptoms persist or worsen the patient needs to return immediately for re-evaluation. 04/30 11:24 Order name: CT Head Brain wo Cont; Complete Time: 12:06 rn Administered Medications: No medications were administered Disposition Summary: 04/30/23 12:07 Discharge Ordered Notes: Location: Home rn Problem: new rn Symptoms: have improved rn Condition: Stable rn Diagnosis - Unspecified injury of head, initial encounter rn Followup: rn - With: Private Physician - When: As needed - Reason: Recheck today's complaints, Re-evaluation by your physician Discharge Instructions: - Discharge Summary Sheet rn - Head Injury, Adult rn Forms: - Medication Reconciliation Form rn - Thank You Letter rn - Antibiotic rn procedure - Prescription Opioid Use rn - Patient Portal Instructions rn - Leadership Thank You Letter rn Signatures: Dispatcher [employer] Tadeo Cadena MD MD rn Campbell, Kaitlyn, RN RN kc6
--- NOTE | 2023-04-30 12:08 | ER ---
Nurse's Notes [facility] Name: Leeann Cueva Age: 88 yrs Sex: Female : 1935 Arrival Date: 04/30/2023 Time: 11:17 Bed 20 Private MD: Diagnosis: Unspecified injury of head, initial encounter Presentation: 04/30 11:24 Chief complaint: EMS states: pt fell and hit the right side of her head while kc6 ambulating at [employer]. denies LOC. takes Plavix at home. Care prior to arrival: None. Mechanism of Injury: Fall from standing position. Trauma event details: Injury occurred in the [facility], Injury occurred: in a public building. Injury occurred: April 30, 2023. 11:24 Acuity: AALIYAH 4 kc6 11:24 Method Of Arrival: EMS: [facility] 6 11:27 Coronavirus screen: At this time, the client does not indicate any symptoms associated kc6 with coronavirus-19. Ebola Screen: No symptoms or risks identified at this time. Initial Sepsis Screen: Does the patient meet any 2 criteria? No. Patient's initial sepsis screen is negative. Does the patient have a suspected source of infection? No. Patient's initial sepsis screen is negative. Risk Assessment: Do you want to hurt yourself or someone else? Patient reports no desire to harm self or others. Onset of symptoms was April 30, 2023. Trauma Activation: Not Applicable Physician: ED Physician; Name: ; Notified At: ; Arrived At: Physician: General Surgeon; Name: ; Notified At: ; Arrived At: Physician: Radiology; Name: ; Notified At: ; Arrived At: Physician: Respiratory; Name: ; Notified At: ; Arrived At: Physician: Lab; Name: ; Notified At: ; Arrived At: Historical: - Allergies: 11:27 Sulfa (Sulfonamide Antibiotics); kc6 - PMHx: 11:27 angle closure glaucoma; CAD; endometrium cancer; Hypertension; melanoma; kc6 - PSHx: 11:27 hysterectomy; melanoma removal; pearson bone reconstruction; kc6 - Immunization history: Last tetanus immunization: - up to date. - Social history:: Smoking status: Patient denies any tobacco usage or history of. - Family history:: not pertinent. - Hospitalizations: : No recent hospitalization is reported. Screenin:24 Abuse screen: Denies threats or abuse. Denies injuries from another. Tuberculosis kc6 screening: No symptoms or risk factors identified. 11:28 [facility] ED Fall Risk Assessment (Adult) History of falling in the last 3 months, kc6 including since admission Yes- single mechanical fall (1 pt) Confusion or Disorientation No (0 pts) Intoxicated or Sedated No (0 pts) Impaired Gait No (0 pts) Mobility Assist Device Used No (0 pt) Altered Elimination No (0 pt) Score/Fall Risk Level 0 - 2 = Low Risk. Nutritional screening: No deficits noted. Primary Survey: 11:24 NO uncontrolled hemorrhage observed. A: The client is awake and alert. The airway is kc6 patent. Breathing/Chest: Spontaneous respiratory effort, equal unlabored respirations, breath sounds clear bilaterally, regular pattern, symmetrical chest rise and fall. Circulation: No external hemorrhage present. Regular and strong central pulse, skin warm/dry/normal color. Disability Pupils are equal, round, reactive to light and accommodation. Client is alert. Exposure/Environment: All clothing and personal items were removed. Forensic evidence collection is not deemed to be indicated at this time. Items placed in patient belonging bag. There is no evidence of uncontrolled external bleeding. No obvious injuries are noted at this time. A warming method has been applied: A warm blanket has been provided to the patient. 12:08 Reassessment Alertness and Airway: Awake and alert. The airway is patent. Breathing: kc6 Spontaneous respiratory effort, equal unlabored respirations, breath sounds clear bilaterally, regular pattern with symmetrical chest rise and fall. Circulation: No external hemorrhage noted. Regular and strong central pulse, skin warm/dry/normal color. Disability: Pupils Pupils are equal, round, reactive to light and accomodation. Alert. Secondary Survey: 11:24 HEENT: No deficits noted. Gastrointestinal: No deficits noted. : No signs and/or kc6 symptoms were reported regarding the genitourinary system. Musculoskeletal: No signs and/or symptoms reported regarding the musculoskeletal system. Circulation, motion, and sensation intact. Capillary refill < 3 seconds, Range of motion: intact in all extremities. Assessment: 11:24 General: Appears in no apparent distress. comfortable, well groomed, well developed, kc6 Behavior is calm, cooperative, appropriate for age. Pain: Denies pain. Neuro: Level of Consciousness is awake, alert, obeys commands, Oriented to person, place, time, situation, Appropriate for age. EENT: No signs and/or symptoms were reported regarding the EENT system. Cardiovascular: Capillary refill < 3 seconds. Respiratory: Airway is patent Trachea midline Respiratory effort is even, unlabored, Respiratory pattern is regular, symmetrical. GI: No signs and/or symptoms were reported involving the gastrointestinal system. : No signs and/or symptoms were reported regarding the genitourinary system. Derm: No signs and/or symptoms reported regarding the dermatologic system. Skin is intact, is healthy with good turgor, Skin is pink, warm \T\ dry. Musculoskeletal: No signs and/or symptoms reported regarding the musculoskeletal system. Circulation, motion, and sensation intact. Capillary refill < 3 seconds, Range of motion: intact in all extremities. Vital Signs: 11:24 BP 229 / 92; Pulse 65; Resp 16 S; Temp 98.4(O); Pulse Ox 100% on R/A; Weight 68.04 kg kc6 (R); Height 5 ft. 3 in. (R); Pain 0/10; 11:38 BP 211 / 86; kc6 12:08 BP 199 / 82; Pulse 70; Resp 18 S; Pulse Ox 100% on R/A; kc6 11:24 Body Mass Index 26.57 (68.04 kg, 160.02 cm) kc6 11:24 Pain Scale: Adult kc6 [place] Coma Score: 11:24 Eye Response: spontaneous(4). Motor Response: obeys commands(6). Verbal Response: kc6 oriented(5). Total: 15. Trauma Score (Adult): 11:24 Eye Response: spontaneous(1); Verbal Response: oriented(1); Motor Response: obeys kc6 commands(2); Systolic BP: > 89 mm Hg(4); Respiratory Rate: 10 to 29 per min(4); Adriana Score: 15; Trauma Score: 12 ED Course: 11:19 Patient arrived in ED. kc6 11:19 Tadeo Wiley MD is Attending Physician. rn 11:24 Patient has correct armband on for positive identification. Bed in low position. Call kc6 light in reach. Side rails up X2. Patient maintains SpO2 saturation greater than 95% on room air. 11:24 Patient maintains SpO2 saturation greater than 95% on room air. kc6 11:25 Triage completed. kc6 11:27 Arm band placed on. kc6 11:28 Thermoregulation: warm blanket given to patient. kc6 11:52 Marisa Morales, RN is Primary Nurse. kc6 11:54 CT Head Brain wo Cont In Process Unspecified. EDMS 12:20 No provider procedures requiring assistance completed. Patient did not have IV access kc6 during this emergency room visit. Administered Medications: No medications were administered Medication: 12:21 VIS not applicable for this client. kc6 Outcome: 12:07 Discharge ordered by . rn 12:20 Discharged to home via wheelchair, with family, kc6 12:20 Condition: good 12:20 Discharge instructions given to patient, Instructed on discharge instructions, follow up and referral plans. Demonstrated understanding of instructions, follow-up care, 12:21 Patient left the ED. kc6 Signatures: Dispatcher [employer] EDMS Tadeo Wiley MD MD rn Campbell, Kaitlyn, RN RN kc6
[2023-04-30 12:36] VITALS: BP 199/82; TEMP 98.4; O2SAT 100
== END ==
LOC: ER 11:17
DX: S00.81XA Abrasion of other part of head, initial encounter (principal); W18.09XA Striking against other object with subsequent fall, initial encounter; Z88.2 Allergy status to sulfonamides
CPT/HCPCS: 70450; 99285

== ENCOUNTER 2023-12-26 18:18 | Inpatient (IN) | payer OTHER ==
[2023-12-26] MEDS ORDERED: LORazepam 2 MG/ML VIAL ONE (18:50)
[2023-12-26 20:15] LABS: Absolute Basophils 0.1 K/uL (0-0.5); Absolute Lymphocytes (CBC) 1.2 K/uL (0.7-4.9); Absolute Monocytes 0.7 K/uL (0.1-1.3); Absolute Neutrophil 9.5 K/uL (1.8-8.0); Basophils % 0.5 % (0-1.3); Eosinophils % 0.1 % (0-4.4); Hematocrit 34.3 % (36.0-45.0); Hemoglobin 11.4 g/dL (12.0-15.0); Lymphocytes % 10.1 % (15.3-44.8); MCH 31.9 pg (27.0-35.0); MCHC 33.2 g/dL (32.0-36.0); MCV 96.2 fL (80-100); MPV 8.2 fL (7.6-11.3); Monocytes % 6.3 % (3.3-12.3); Platelets 244 thou/uL (152-406); RBC Red Blood Cell Count 3.57 M/uL (3.86-4.86); Red Cell Distribution Width 14.1 % (12.1-15.2)
[2023-12-26 20:22] LABS: PT Prothrombin Time 11.6 SECONDS (9.4-12.5); Protime INR 1.04
[2023-12-26] MEDS ORDERED: BISACODYL 10 MG RECTAL SUPP ONE (20:49)
[2023-12-26] MEDS ORDERED: FAMOTIDINE 20 MG/2 ML VIAL IV ONE (20:50)
[2023-12-26] MEDS ORDERED: NA CHLORIDE 0.9% 1,000 ML ONE (20:50)
[2023-12-26 21:18] LABS: Albumin 3.3 g/dL (3.4-5.0); Anion Gap 10.1 mEq/L (5.0-15.0); Bilirubin Total 0.4 mg/dL (0.2-1.0); Globulin 3.2 g/dL (2.3-3.5); Potassium 4.1 mEq/L (3.5-5.1); Protein, Total 6.5 g/dL (6.4-8.2); Troponin High Sensitivity 23.7 pg/mL (<58.9)
[2023-12-26 21:33] LABS: Specific Gravity 1.008 (1.005-1.030); Urine Bilirubin NEGATIVE (Negative); Urine Blood Negative (Negative); Urine Clarity Clear (Clear); Urine Color Colorless (Yellow); Urine Glucose NEGATIVE (Negative); Urine Ketones NEGATIVE (Negative); Urine Microscopic Reflex YN NO UMIC; Urine Nitrite NEGATIVE (Negative); Urine Protein NEGATIVE (Negative); Urine Urobilinogen Normal (Normal); Urine pH 5.5 (5.0-7.0)
--- NOTE | 2023-12-26 22:08 | RAD REPORT ---
EXAM DESCRIPTION: CT - Head C Spine Cap Tanika Dior - 12/26/2023 9:33 pm CLINICAL HISTORY: Syncope. Neck pain. Chest and abdominal pain TECHNIQUE: Computed axial tomography of head, neck, chest, abdomen and pelvis obtained. IV and oral contrast not requested. Coronal and sagittal reconstruction performed. All CT scans are performed using dose optimization technique as appropriate and may include automated exposure control or mA/KV adjustment according to patient size. COMPARISON: 2021 FINDINGS: An intracranial bleed is not seen. The ventricles are normal in caliber. An extra-axial fluid collection is not noted. Moderate low-density within periventricular, deep and subcortical white matter may represent ischemic changes secondary to small vessel disease Fluid within the sinuses/mastoids is not seen. A cervical fracture is not seen. No dislocation is noted. Mild anterior subluxation C7 on T1. Scoliosis spondylosis present. The evaluation of mediastinum, jossue, vessels, solid organs and bowel are limited secondary to the lac k of contrast administration. Ascending aorta 4.2 centimeters. No mediastinal or hilar lymphadenopathy noted. No pericardial effusion. No pleural effusion Rectum is mildly distended with stool. No evidence diverticulitis. 4 centimeter structure containing air is present within the cecum. Presacral edema with trace amount of ascites. Atherosclerosis. Mild anterior subluxation L4 on L5. Catheter within the bladder Hysterectomy. No adnexal mass Bilateral thyroid nodules can monitored on nonemergent thyroid ultrasound IMPRESSION: No acute intracranial abnormality is seen. A cervical fracture is not visualized. Rectum is mildly distended with stool. 4 centimeter structure within the cecum probably unusual appearing stool. Foreign body considered les s likely and can be monitored on subsequent imaging
--- NOTE | 2023-12-26 22:20 | ER ---
Nurse's Notes [facility] Name: Leeann Cueva Age: 88 yrs Sex: Female : 1935 Arrival Date: 12/26/2023 Time: 18:18 Bed 18 Private MD: Diagnosis: Abdominal pain, Generalized;Constipation-impaction;Dementia in other diseases classified elsewhere without behavioral disturbance;Unspecified kidney failure Presentation: 12/25 18:28 Chief complaint: EMS states: possible bowel obstruction, loose stool for days and now iw she is plugged up, c/o rectal pain . Pt had a BM just before EMS arrival. Coronavirus screen: At this time, the client does not indicate any symptoms associated with coronavirus-19. Ebola Screen: No symptoms or risks identified at this time. Initial Sepsis Screen: Does the patient meet any 2 criteria? Does the patient have a suspected source of infection? No. Patient's initial sepsis screen is negative. Risk Assessment: Do you want to hurt yourself or someone else? Patient reports no desire to harm self or others. Onset of symptoms was December 26, 2023. Care prior to arrival: IV initiated. 22 GA, in the right forearm, Glucose check: 158. Transition of care: patient was not received from another setting of care. 18:28 Method Of Arrival: EMS: [facility] iw 18:28 Acuity: AALIYAH 3 iw Triage Assessment: 18:52 General: Appears in no apparent distress. uncomfortable, Behavior is anxious, fussy. ld1 Pain: Complains of pain in buttocks and pelvis Pain does not radiate. Pain currently is 8 out of 10 on a pain scale. Quality of pain is described as throbbing, Pain began suddenly, Is continuous. EENT: No signs and/or symptoms were reported regarding the EENT system. Neuro: Level of Consciousness is awake, alert, confused, Oriented to none. Cardiovascular: Capillary refill < 3 seconds Patient's skin is warm and dry. Rhythm is sinus rhythm. Respiratory: Airway is patent Respiratory effort is even, unlabored. GI: Abdomen is flat, non-distended, Reports rectal pain post bowel movement. : No signs and/or symptoms were reported regarding the genitourinary system. Derm: No signs and/or symptoms reported regarding the dermatologic system. Musculoskeletal: No signs and/or symptoms reported regarding the musculoskeletal system. Historical: - Allergies: 18:30 Sulfa (Sulfonamide Antibiotics); iw - Home Meds: 18:56 clopidogrel 75 mg Oral tab 1 tab once daily [Active]; ld1 - PMHx: 18:30 angle closure glaucoma; Hypertension; melanoma; endometrium cancer; CAD; iw - PSHx: 18:30 melanoma removal; hysterectomy; pearson bone reconstruction; iw - Immunization history:: Adult Immunizations up to date. - Infectious Disease History:: Denies. - Social history:: Smoking status: Patient denies any tobacco usage or history of. Screenin:54 [facility] ED Fall Risk Assessment (Adult) History of falling in the last 3 months, ld1 including since admission No falls in past 3 months (0 pts) Confusion or Disorientation No (0 pts) Intoxicated or Sedated No (0 pts) Impaired Gait No (0 pts) Mobility Assist Device Used No (0 pt) Altered Elimination No (0 pt) Score/Fall Risk Level 0 - 2 = Low Risk Oriented to surroundings, Maintained a safe environment, Educated pt \T\ family on fall prevention, incl call for assistance when getting out of bed, Assessed \T\ reinforced patient's understanding of fall precautions, Provided non-skid footwear, Hourly rounding (assess needs \T\ fall precautionary measures) done, Used ambulatory aids as needed (educated on \T\ assisted with), Used gait belt as appropriate. Abuse screen: Denies threats or abuse. Denies injuries from another. Nutritional screening: No deficits noted. Tuberculosis screening: No symptoms or risk factors identified. Assessment: 18:54 Reassessment: See triage assessment. ld1 19:30 General: Appears in no apparent distress. comfortable, Behavior is calm, cooperative, jj7 appropriate for age. GI: Parent/caregiver reports the patient having diarrhea. Vital Signs: 18:41 Weight 49.44 kg; Height 5 ft. 3 in. ; ld1 18:52 BP 132 / 61; Pulse 68; Resp 26; Temp 98.2(TE); Pulse Ox 95% on R/A; ld1 18:52 Pain 9/10; ld1 19:30 BP 120 / 56; Pulse 71; Resp 17; Pulse Ox 97% ; jj7 20:30 BP 136 / 69; Pulse 66; Resp 17; Pulse Ox 96% ; jj7 21:30 BP 144 / 99; Pulse 64; Resp 20; Pulse Ox 97% ; jj7 22:30 BP 149 / 72; Pulse 69; Resp 16; Pulse Ox 95% ; jj7 23:30 BP 147 / 57; Pulse 68; Resp 17; Pulse Ox 95% ; jj7 12/26 00:30 BP 131 / 61; Pulse 74; Resp 17; Temp 97.5; Pulse Ox 95% ; j7 12/25 18:41 Body Mass Index 19.31 (49.44 kg, 160.02 cm) ld1 18:52 Pain Scale: Adult ld1 ED Course: 12/25 18:22 Patient arrived in ED. sp3 18:22 Curtis Simms MD is Attending Physician. sp3 18:30 Triage completed. iw 18:31 Arm band placed on. iw 18:31 Maintain EMS IV. Dressing intact. Good blood return noted. Site clean \T\ dry. Gauge \T\ iw site: 22 RAC. 18:54 Patient has correct armband on for positive identification. Placed in gown. Bed in low ld1 position. Call light in reach. Side rails up X2. ekg monitor on. Pulse ox on. NIBP on. Door closed. Noise minimized. Warm blanket given. 18:54 No provider procedures requiring assistance completed. ld1 19:30 Provided Education on: USE OF CALL PANIAGUA. jj7 19:45 EKG done, by ED staff, reviewed by Curtis Simms MD. oe 19:49 First set of blood cultures drawn by me. oe 20:06 Inserted saline lock: 20 gauge in left antecubital area, using aseptic technique. Blood oe collected. Flushed with 10 mL NS. 20:08 Attending Physician role handed off by Curtis Simms MD inez 20:08 Guero Castro MD is Attending Physician. inez 20:08 Second set of blood cultures drawn. oe 20:13 Mohit Polanco RN is Primary Nurse. jj7 20:26 Blood Culture Adult (2) Sent. oe 20:26 CMP Sent. oe 20:26 Lactate w/ 2H reflex if indic. Sent. oe 21:10 Amador cath inserted, using sterile technique, 16 Fr., by me, balloon inflated, to jj7 gravity drainage, urine specimen collected. 21:35 CT Traumagram (Head C Spine CAP wo con) In Process Unspecified. EDND 22:19 See Hernandez MD is Hospitalizing Provider. [facility] 12/26 01:23 Patient admitted, IV remains in place. j7 Administered Medications: 12/25 18:45 Drug: Ativan IVP 1 mg IVP once Route: IVP; Site: right forearm; ld1 18:58 Follow up: Response: No adverse reaction; Anxiety decreased ld1 21:15 Drug: Dulcolax IN Suppository 10 mg IN once Route: IN; jj7 23:00 Follow up: Response: No adverse reaction j7 21:15 Drug: Famotidine IVP 20 mg IVP once; dilute with 10 mL 0.9% NaCl; give over 2 minutes j7 Route: IVP; Site: right antecubital; 23:00 Follow up: Response: No adverse reaction j7 21:16 Drug: NS 0.9% IV 500 ml IV at bolus once Route: IV; Rate: bolus; Site: right [facility] antecubital; 22:00 Follow up: IV Status: Completed infusion j7 22:04 Drug: NS 0.9% IV 1000 ml IV at 125 ml/hr continuous Route: IV; Rate: 125 ml/hr; Site: [facility] right antecubital; 12/26 01:11 Drug: Lactulose PO 30 grams 45 ml PO once Volume: 45 ml; Route: PO; jj7 01:20 Follow up: Response: No adverse reaction j Medication: 12/25 18:54 VIS not applicable for this client. ld1 Outcome: 22:20 Decision to Hospitalize by Provider. [facility] 12/26 01:23 Admitted to Med/surg accompanied by tech, via stretcher, room 419, Report called to [facility] REPORT SHEET FAXED TO 4TH FLOOR Condition: good 01:51 Patient left the ED. vc1 Signatures: Dispatcher [employer] EDND Guero Castro MD MD cha Williams, Irene, Fahad Ponce RN, Lauren, RN RN ld1 Curtis Simms MD MD sp3 Carlita Richardson RN RN vc1 Mohit Polanco RN RN jj7
--- NOTE | 2023-12-26 22:20 | EDPHYS ---
Physician Documentation [facility] Name: Leeann Cueva Age: 88 yrs Sex: Female : 1935 Arrival Date: 12/26/2023 Time: 18:18 Bed 18 Private MD: ED Physician Guero Castro HPI: 12/25 18:40 This 88 yrs old Female presents to ER via EMS with complaints of Rectal Pain, sp3 Constipation. 18:40 88-year-old female with history of hypertension, prior endometrial cancer, CAD, prior sp3 bowel obstruction presents to the ED with chief complaint abdominal pain, decreased bowel movements and concern for recurrence of obstruction. Vital signs stable for EMS. Patient has dementia therefore ROS, history and physical limited. Majority of history from her son who is also power of wind turbine controls engineer and who is at bedside.. Historical: - Allergies: 18:30 Sulfa (Sulfonamide Antibiotics); iw - Home Meds: 18:56 clopidogrel 75 mg Oral tab 1 tab once daily [Active]; ld1 - PMHx: 18:30 angle closure glaucoma; Hypertension; melanoma; endometrium cancer; CAD; iw - PSHx: 18:30 melanoma removal; hysterectomy; pearson bone reconstruction; iw - Immunization history:: Adult Immunizations up to date. - Infectious Disease History:: Denies. - Social history:: Smoking status: Patient denies any tobacco usage or history of. ROS: 18:41 Unable to obtain ROS due to baseline dementia, sp3 Exam: 18:42 Constitutional: This is a well developed, well nourished patient who is awake, alert, sp3 and in no acute distress. Head/Face: Normocephalic, atraumatic. Cardiovascular: Regular rate and rhythm with a normal S1 and S2. No gallops, murmurs, or rubs. Normal PMI, no JVD. No pulse deficits. Respiratory: Lungs have equal breath sounds bilaterally, clear to auscultation and percussion. No rales, rhonchi or wheezes noted. No increased work of breathing, no retractions or nasal flaring. 18:42 Abdomen/GI: Soft abdomen but diffusely tender. No peritoneal signs noted., 19:41 ECG was reviewed by the Attending Physician. EKG demonstrates normal sinus rhythm at 60 sp3 bpm with possible PACs versus sinus arrhythmia, normal axis, nonspecific diffuse ST's ST changes without evidence of acute ischemia. 20:44 Abdomen/GI: Rectal exam: rectal tone normal, Stool: normal, hemorrhoid(s), are not inez appreciated, mass, is not appreciated, swelling, is not appreciated, tenderness, is not appreciated, fecal impaction, that is moderate, Vital Signs: 18:41 Weight 49.44 kg; Height 5 ft. 3 in. ; ld1 18:52 BP 132 / 61; Pulse 68; Resp 26; Temp 98.2(TE); Pulse Ox 95% on R/A; ld1 18:52 Pain 9/10; ld1 19:30 BP 120 / 56; Pulse 71; Resp 17; Pulse Ox 97% ; jj7 20:30 BP 136 / 69; Pulse 66; Resp 17; Pulse Ox 96% ; jj7 21:30 BP 144 / 99; Pulse 64; Resp 20; Pulse Ox 97% ; jj7 22:30 BP 149 / 72; Pulse 69; Resp 16; Pulse Ox 95% ; jj7 23:30 BP 147 / 57; Pulse 68; Resp 17; Pulse Ox 95% ; jj7 12/26 00:30 BP 131 / 61; Pulse 74; Resp 17; Temp 97.5; Pulse Ox 95% ; jj7 12/25 18:41 Body Mass Index 19.31 (49.44 kg, 160.02 cm) ld1 18:52 Pain Scale: Adult ld1 MDM: 12/25 18:23 Patient medically screened. sp3 18:42 Data reviewed: vital signs, nurses notes, lab test result(s), radiologic studies. ED sp3 course: 88-year-old female with PMH above now with abdominal pain and concern for possible obstruction. 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 Workup will include CT scan of the abdomen pelvis with IV contrast, laboratory values, lactate, UA and general supportive care. Disposition pending workup and patient course with probable admission versus transfer depending on final diagnosis. Patient will be signed out to nighttime physician for final disposition and reevaluation.. 12/25 18:23 Order name: Blood Culture Adult (2) sp3 12/25 18:23 Order name: CBC with Diff; Complete Time: 20:33 sp3 12/25 18:23 Order name: CMP; Complete Time: 22:16 [facility] 12/25 18:23 Order name: Lactate w/ 2H reflex if indic.; Complete Time: 22:16 [facility] 12/25 18:23 Order name: Protime (+inr); Complete Time: 20:33 [facility] 12/25 18:23 Order name: Urinalysis w/ reflexes; Complete Time: 22:16 [facility] 12/25 18:23 Order name: Troponin High Sensitivity; Complete Time: 22:16 [facility] 12/25 20:46 Order name: CT Traumagram (Head C Spine CAP wo con) [facility] 12/25 18:23 Order name: EKG; Complete Time: 18:23 [facility] 12/25 18:23 Order name: Cardiac monitoring; Complete Time: 18:52 [facility] 12/25 18:23 Order name: EKG - Nurse/Tech; Complete Time: 20:26 [facility] 12/25 18:23 Order name: IV Saline Lock - Large Bore; Complete Time: 18:52 [facility] 12/25 18:23 Order name: Labs collected and sent; Complete Time: 20:26 [facility] 12/25 18:23 Order name: O2 Per Protocol; Complete Time: 18:40 [facility] 12/25 18:23 Order name: O2 Sat Monitoring; Complete Time: 18:40 [facility] 12/25 18:23 Order name: Vital Signs; Complete Time: 18:52 [facility] 12/25 18:23 Order name: [place]; Complete Time: 21:35 [facility] 12/25 18:23 Order name: NPO; Complete Time: 18:58 sp3 Administered Medications: 18:45 Drug: Ativan IVP 1 mg IVP once Route: IVP; Site: right forearm; ld1 18:58 Follow up: Response: No adverse reaction; Anxiety decreased ld1 21:15 Drug: Dulcolax MN Suppository 10 mg MN once Route: MN; jj7 23:00 Follow up: Response: No adverse reaction jj7 21:15 Drug: Famotidine IVP 20 mg IVP once; dilute with 10 mL 0.9% NaCl; give over 2 minutes jj7 Route: IVP; Site: right antecubital; 23:00 Follow up: Response: No adverse reaction jj7 21:16 Drug: NS 0.9% IV 500 ml IV at bolus once Route: IV; Rate: bolus; Site: right jj7 antecubital; 22:00 Follow up: IV Status: Completed infusion jj7 22:04 Drug: NS 0.9% IV 1000 ml IV at 125 ml/hr continuous Route: IV; Rate: 125 ml/hr; Site: jj right antecubital; 12/26 01:11 Drug: Lactulose PO 30 grams 45 ml PO once Volume: 45 ml; Route: PO; jj7 01:20 Follow up: Response: No adverse reaction jj7 Disposition Summary: 12/26/23 22:20 Hospitalization Ordered Notes: Hospitalization Status: Inpatient Admission inez Provider: See Hernandez cha Location: Telemetry/MedSurg (Inpatient) inez Condition: Fair inez Problem: new inez Symptoms: have improved inez Bed/Room Type: Standard inez Room Assignment: 419(12/27/23 00:08) ty Diagnosis - Abdominal pain, Generalized inez - Constipation - impaction inez - Dementia in other diseases classified elsewhere without behavioral disturbance inez - Unspecified kidney failure inez Forms: - Medication Reconciliation Form inez - SBAR form inez - Leadership Thank You Letter inez Signatures: Dispatcher [employer] EDMS Guero Castro MD MD cha Williams, Irene, RN RN iw Tarah Santiago RN RN ld1 Curtis Simms MD MD sp3 Mohit Polanco RN RN jj7 Abdi Del [place] Corrections: (The following items were deleted from the chart) 12/25 20:43 20:43 Abdomen Pelvis Wo Con+CT.RAD.BRZ ordered. EDMS EDMS 20:45 18:23 Abdomen Pelvis W Con+CT.RAD.BRZ ordered. EDMS EDMS 20:45 20:45 Abdomen ordered. EDMS EDMS 12/26 00:08 12/25 22:20 inez ty
[2023-12-26] MEDS ORDERED: LACTULOSE 20 GM/30 ML UCUP ONE (23:06)
[2023-12-26] MEDS ORDERED: ONDANSETRON 4 MG/2 ML VIAL IV PRN (23:32)
[2023-12-26] MEDS ORDERED: ACETAMINOPHEN 325 MG TABLET PO PRN (23:32)
[2023-12-27 02:11] VITALS: BMI 19.3
[2023-12-27] MEDS: NA CHLORIDE 0.9% 1,000 ML IV SCH ×2 (02:52→17:15)
[2023-12-27 07:59] LABS: Absolute Neutrophil 11.8 K/uL (1.8-8.0); Basophils % 0.2 % (0-1.3); Hematocrit 32.6 % (36.0-45.0); Hemoglobin 10.7 g/dL (12.0-15.0); Lymphocytes % 13.7 % (15.3-44.8); MCH 31.5 pg (27.0-35.0); MCHC 32.7 g/dL (32.0-36.0); MCV 96.1 fL (80-100); MPV 8.4 fL (7.6-11.3); Monocytes % 6.9 % (3.3-12.3); Neutrophils % 79.2 % (41.7-73.7); Platelets 216 thou/uL (152-406); RBC Red Blood Cell Count 3.39 M/uL (3.86-4.86); Red Cell Distribution Width 14.2 % (12.1-15.2)
[2023-12-27] MEDS: LACTULOSE 20 GM/30 ML UCUP PO SCH (08:01)
[2023-12-27] MEDS: BISACODYL 10 MG RECTAL SUPP PR SCH (08:01)
[2023-12-27 08:12] LABS: Anion Gap 10.4 mEq/L (5.0-15.0); Potassium 3.4 mEq/L (3.5-5.1)
[2023-12-27] MEDS: FAMOTIDINE 20 MG/2 ML VIAL IV SCH (08:20)
--- NOTE | 2023-12-27 11:11 | RAD REPORT ---
EXAM DESCRIPTION: MRI - Brain Wo Cont - 12/27/2023 10:28 am CLINICAL HISTORY: Confusion/alteration consciousness COMPARISON: Head CT December 26, 2023 TECHNIQUE: Axial, sagittal, and coronal magnetic resonance images of the brain were obtained. FINDINGS: Moderate signal within periventricular, deep and subcortical white matter probably ischemi c changes secondary to small vessel disease Diffusion-weighted/ADC mapping does not reveal evidence of acute infarction. The ventricles are normal caliber. Cerebral atrophy An extra-axial fluid collection is not noted. Fluid within the sinuses/mastoids is not seen IMPRESSION: No acute intracranial abnormality noted
[2023-12-27] MEDS ORDERED: DICLOFENAC SODIUM TOP PRN (12:55)
--- NOTE | 2023-12-27 13:04 | P.HP ---
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 SHE HAD DIARRHEA BEFORE THAT. SHE IS WEAK BUT BACK TO HER BASELINE MENTALLY NOW. CT PROTOCOL BY ER SHOWS POSSIBLE CONSTIPATION. DR. MEYERS ADMITTED HER. HER TROP IS NEGATIVE. I ORDERED MRI TODAY OF [place] THAT IS NEGATIVE ALSO. Allergies Sulfa (Sulfonamide Antibiotics) Allergy (Verified 12/27/23 02:14) Itching Home medications list reviewed: Yes Home Medications: Clopidogrel Bisulfate [Clopidogrel] 75 mg PO DAILY 08/17/21 Isosorbide Mononitrate [Isosorbide Mononitrate ER] 1 tab PO BID 08/17/21 Krill/Om-3/Dha/Epa/Phospho/Ast [Megared [place]-3 Krill 500 mg] 500 mg PO DAILY 08/17/21 Losartan Potassium [Cozaar] 1 tab PO BID 08/17/21 Potassium Chloride 1 tab PO BID 08/17/21 Pravastatin Sodium 1 tab PO BEDTIME 08/17/21 Torsemide [Demadex*] 1 tab PO DAILY PRN 08/17/21 Diclofenac Sodium 1 dose TOP DAILYPRN PRN 12/27/23 Glucosamine/Chondroiti/[id number] [Cosamin Asu Capsule] 1 pill PO DAILY 12/27/23 Hydralazine HCl 50 mg PO BID 12/27/23 Ubidecarenone [Co Q-10] 1,200 mg PO DAILY 12/27/23 - Past Medical/Surgical History Diabetic: No -: HTN -: Glaucoma -: CAD -: Endometrial Cancer -: Left leg- reconstruction surgery sheen -: Hysterectomy Psychosocial/ Personal History: Patient is recently . - Social History Smoking Status: Unknown if ever smoked Alcohol use: No CD- Drugs: No Caffeine use: Yes Place of Residence: Home Review of Systems 10-point ROS is otherwise unremarkable Physical Examination - Vital Signs Temperature: 97.8 F Blood Pressure: 149/65 Pulse: 57 Respirations: 16 Pulse Ox (%): 99 - Physical Exam General: Oriented x3, Cachectic, Mild distress HEENT: Atraumatic, PERRLA, Mucous membr. moist/pink, EOMI, Sclerae nonicteric Neck: Supple, 2+ carotid pulse no bruit, No LAD, Without JVD or thyroid abnormality Respiratory: Clear to auscultation bilaterally, Normal air movement Cardiovascular: Regular rate/rhythm, Normal S1 S2 Gastrointestinal: Normal bowel sounds, No tenderness Musculoskeletal: No tenderness Integumentary: No rashes Neurological: Normal gait, Normal speech, Normal strength at 5/5 x4 extr, Normal tone, Normal affect Lymphatics: No axilla or inguinal lymphadenopathy - Studies Laboratory Data (last 24 hrs) 12/26/23 12/26/23 12/26/23 19:49 19:49 19:49 WBC 11.50 H Hgb 11.4 L Hct 34.3 L Plt Count 244 PT 11.6 INR 1.04 Sodium 143 Potassium 4.1 BUN 31 H Creatinine 1.35 H Glucose 132 H Total Bilirubin 0.4 AST 21 ALT 18 Alkaline Phosphatase 51 Assessment and Plan - Problems (Diagnosis) (1) Vasovagal syncope Current Visit: Yes Status: Acute Plan: SHE MAY HAVE STRAINED FOR BM AND PASSED OUT. SHE RECALLS NOTHING. SHE IS BACK TO HER BASLINE. SHE HAS DEHYDRATION ON LAB. SHE IS STABLE. NEEDS PT AND MAY GO HOME IN AM. (2) Constipated Current Visit: Yes Status: Acute - Advance Directives Does patient have a Living Will: Yes Does patient have a Durable POA for Healthcare: Yes
[2023-12-27 13:46] LABS: MPV 8.9 fL (7.6-11.3); Platelets 189 thou/uL (152-406)
[2023-12-27] MEDS: LOSARTAN POTASSIUM 50 MG TABLET PO SCH (21:20)
[2023-12-27] MEDS: HYDRALAZINE HCL 25 MG TABLET PO SCH (21:20)
[2023-12-27] MEDS: ISOSORBIDE MONO SR 30 MG TAB PO SCH (21:20)
[2023-12-27] MEDS: ATORVASTATIN 10 MG TAB PO SCH (21:21)
[2023-12-28 07:36] LABS: Absolute Basophils 0.1 K/uL (0-0.5); Absolute Lymphocytes (CBC) 2.7 K/uL (0.7-4.9); Absolute Monocytes 0.6 K/uL (0.1-1.3); Absolute Neutrophil 8.1 K/uL (1.8-8.0); Basophils % 0.5 % (0-1.3); Eosinophils % 0.1 % (0-4.4); Hematocrit 31.4 % (36.0-45.0); Hemoglobin 10.5 g/dL (12.0-15.0); Lymphocytes % 23.3 % (15.3-44.8); MCH 31.9 pg (27.0-35.0); MCHC 33.4 g/dL (32.0-36.0); MCV 95.6 fL (80-100); MPV 8.7 fL (7.6-11.3); Monocytes % 5.4 % (3.3-12.3); Neutrophils % 70.7 % (41.7-73.7); Platelets 196 thou/uL (152-406); RBC Red Blood Cell Count 3.29 M/uL (3.86-4.86); Red Cell Distribution Width 14.2 % (12.1-15.2)
[2023-12-28 07:46] VITALS: O2SAT 96
[2023-12-28 07:54] LABS: Anion Gap 10.4 mEq/L (5.0-15.0); Potassium 3.4 mEq/L (3.5-5.1)
--- NOTE | 2023-12-28 08:07 | P.DS ---
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 SHE HAD DIARRHEA BEFORE THAT. SHE IS WEAK BUT BACK TO HER BASELINE MENTALLY NOW. CT PROTOCOL BY ER SHOWS POSSIBLE CONSTIPATION. DR. MEYERS ADMITTED HER. HER TROP IS NEGATIVE. I ORDERED MRI TODAY OF [place] THAT IS NEGATIVE ALSO. Hospital Course: Janie came with syncope from dehydration and diarrhea at home. She walked about 180 feet here. Dehydration has cleared. I have reduced her diuretic use to half. She will come to office in one week. Vital Signs/Physical Exam: Temp Pulse Resp BP Pulse Ox 97.6 F 63 18 138/59 L 96 12/28/23 04:00 12/28/23 04:00 12/28/23 04:00 12/28/23 04:00 12/28/23 04:00 Laboratory Data at Discharge: WBC 11.50 thou/uL (4.3-10.9) H 12/28/23 07:16 Hgb 10.5 g/dL (12.0-15.0) L 12/28/23 07:16 Hct 31.4 % (36.0-45.0) L 12/28/23 07:16 Plt Count 196 thou/uL (152-406) 12/28/23 07:16 PT 11.6 SECONDS (9.4-12.5) 12/26/23 19:49 INR 1.04 12/26/23 19:49 Sodium 142 mEq/L (136-145) 12/28/23 07:16 Potassium 3.4 mEq/L (3.5-5.1) L 12/28/23 07:16 BUN 22 mg/dL (7-18) H 12/28/23 07:16 Creatinine 1.10 mg/dL (0.55-1.02) H 12/28/23 07:16 Glucose 95 mg/dL (74-106) 12/28/23 07:16 Total Bilirubin 0.4 mg/dL (0.2-1.0) 12/26/23 19:49 AST 21 U/L (15-37) 12/26/23 19:49 ALT 18 U/L (13-56) 12/26/23 19:49 Alkaline Phosphatase 51 U/L (45-117) 12/26/23 19:49 Home Medications: Clopidogrel Bisulfate [Clopidogrel] 75 mg PO DAILY 08/17/21 Isosorbide Mononitrate [Isosorbide Mononitrate ER] 1 tab PO BID 08/17/21 Losartan Potassium [Cozaar] 1 tab PO BID 08/17/21 Potassium Chloride 1 tab PO BID 08/17/21 Pravastatin Sodium 1 tab PO BEDTIME 08/17/21 Diclofenac Sodium 1 dose TOP DAILYPRN PRN 12/27/23 Glucosamine/Chondroiti/[id number] [Cosamin Asu Capsule] 1 pill PO DAILY 12/27/23 Hydralazine HCl 50 mg PO BID 12/27/23 Ubidecarenone [Co Q-10] 1,200 mg PO DAILY 12/27/23 Torsemide [Demadex*] 0.5 tab PO DAILY PRN #15 tab 12/28/23 New Medications: Torsemide [Demadex*] 0.5 tab PO DAILY PRN #15 tab PRN Reason: Shortness Of Breath Followup: See Hernandez MD [Primary Care Provider] -
[2023-12-28] MEDS: ENOXAPARIN 40 MG/0.4 ML SQ SCH (08:47)
[2023-12-28] MEDS: CLOPIDOGREL 75 MG TABLET PO SCH (08:49)
[2023-12-28 08:51] VITALS: BP 135/54; TEMP 97.4
--- NOTE | 2023-12-28 12:56 | EKG ---
Test Date: 2023-12-26 Test Time: 19:38:25 [employer] Physics Technician: PARI MEASUREMENT RESULTS: Intervals: Rate: 68 NH: 192 QRSD: 76 QT: 438 QTc: 465 [address]: P: NH: 192 QRS: 47 T: 55 INTERPRETIVE STATEMENTS: Sinus rhythm with premature atrial complexes Cannot rule out Inferior infarct, age undetermined Abnormal ECG Compared to ECG 03/04/2022 20:59:16 Atrial premature complex(es) now present Sinus bradycardia no longer present Sinus arrhythmia no longer present Ventricular premature complex(es) no longer present Myocardial infarct finding still present Electronically Signed On 12-28-23 12:55:07 CDT by Brijesh Agrawal
== END 2023-12-28 10:00 | disposition home or self-care (01) | DRG 389 ==
LOC: ER 18:18 → ERHOLD 22:22 → 4TH 12-27 00:33
PROVIDERS: ADMIT Internal Medicine; ATTEND Internal Medicine
DX: K56.41 Fecal impaction (principal); R64 Cachexia; Z68.1 Body mass index [BMI] 19.9 or less, adult; E86.0 Dehydration; I10 Essential (primary) hypertension; M19.90 Unspecified osteoarthritis, unspecified site; I25.10 Atherosclerotic heart disease of native coronary artery without angina pectoris; F03.90 Unspecified dementia, unspecified severity, without behavioral disturbance, psychotic disturbance, mood disturbance, and anxiety; Z88.2 Allergy status to sulfonamides; Z79.02 Long term (current) use of antithrombotics/antiplatelets; Z90.710 Acquired absence of both cervix and uterus; Z79.899 Other long term (current) drug therapy
CPT/HCPCS: 36415; 51702; 70450; 70551; 71250; 72125; 80048; 80053; 81003; 83605; 84484; 85025; 85049; 85610; 87040; 93005; 97116; 97161; 97530; 99285; J1650; J7030